=== PATIENT | female | born 1955 | race Caucasian/White ===

== ENCOUNTER → 2020-07-28 08:46 | Outpatient (BNVA) | payer OTHER, SELFPAY | PROVIDERS: PCP Internal Medicine Geriatric Medicine; Visit Provider Nurse Practitioner ==

== ENCOUNTER 2020-09-25 08:29 | Outpatient (REF) | payer OTHER, SELFPAY ==
--- NOTE | ~2020-09-25 | CT_ITS ---
EXAMINATION: CT ABDOMEN WITH CONTRAST CLINICAL INFORMATION: Epigastric pain and weight loss. COMPARISON: None TECHNIQUE: Contiguous axial thin section helical images of the abdomen were performed following the administration of oral contrast and 85 mL of Omnipaque 350 intravenous contrast. The data set was reformatted in the coronal and sagittal planes and reviewed on an independent workstation. This CT examination was performed using dose optimization techniques as appropriate, variously including the following: Automated exposure control Adjustment of mA and/or kV according to patient size (this includes techniques or standardized protocols for targeted exams where dose is matched to indication/reason for exam; i.e. extremities or head) Use of iterative reconstruction technique DLP: 220 mGy-cm FINDINGS: LUNG BASES: The lung bases are clear. The heart size is normal. LIVER, GALLBLADDER, AND BILIARY TREE: The liver is homogeneous in density, is of normal size and shape. No focal lesion or intrahepatic ductal dilatation is seen. The common bile duct is of normal caliber. The gallbladder is unremarkable without any radiopaque calculi. PANCREAS: Minimal heterogenous appearance of pancreatic head is visualized on axial image 27/3. The body and the tail of the pancreas are unremarkable. The peripancreatic fat borders are maintained normally. SPLEEN: The spleen is unremarkable. ADRENAL GLANDS AND KIDNEYS: Bilateral adrenal glands are symmetrical. Both kidneys nephrograms are of normal size, shape and position. There is a punctate cortical scar in the upper pole lateral cortex of the left kidney. There is a nonobstructive 4 mm radiopaque calculi mid pole and 2 mm radiopaque calculi in the lower pole calyx of the left kidney. There is a punctate 4 mm hypodense area in the interpolar region of the left kidney that likely is a simple cyst. BOWEL LOOPS: There is moderate scattered stool seen throughout the colon without any significant distention. The small bowel loops are of normal caliber and the appendix is not seen. The stomach is nondistended and appears unremarkable. LYMPH NODES: Normal. VASCULAR: Unremarkable. BONES: There is bilateral L4-L5, L5-S1 facet joint arthropathy. No lytic or sclerotic process is seen . CT/CT abdomen w con IMPRESSION: 4 mm nonobstructive radiopaque calculi mid pole and a 2 mm radiopaque calculi in the lower pole calyx of the left kidney. Mildly heterogenous appearing pancreatic head but no enlargement. No abnormal lymph nodes. Recommend correlation with serum amylase and lipase levels. If clinically indicated follow-up with MRI abdomen with and without contrast.
[2020-09-25 09:56] LABS: Blood Urea Nitrogen 11 mg/dL (9-16); Estimated Glomerular Filt Rate > 60
[2020-09-25] MEDS: iohexoL 350 MG/ML 100 ML INFUS..BTL IV (11:52)
== END 2020-09-25 08:30 | disposition home or self-care (01) ==
LOC: HO.CT 08:29
PROVIDERS: PCP Internal Medicine Geriatric Medicine; Visit Provider Internal Medicine Geriatric Medicine
DX: R10.13 Epigastric pain (principal); R63.4 Abnormal weight loss; R73.03 Prediabetes
CPT/HCPCS: 36415; 74160; 82565; 84520; Q9967

== ENCOUNTER 2021-01-30 12:56 | Outpatient (REF) | payer OTHER, SELFPAY | END 2021-01-30 12:57 | disposition home or self-care (01) | LOC: HO.LAB 12:56 | PROVIDERS: PCP Internal Medicine Geriatric Medicine; Referring Provider Internal Medicine Geriatric Medicine; Visit Provider Nurse Practitioner Family | DX: R10.13 Epigastric pain (principal); K21.9 Gastro-esophageal reflux disease without esophagitis; R43.8 Other disturbances of smell and taste | CPT/HCPCS: 99202 ==

== ENCOUNTER 2021-11-16 13:46 | Outpatient (REF) | payer OTHER, SELFPAY ==
--- NOTE | ~2021-11-16 | MM_ITS ---
EXAMINATION: MM DIAGNOSTIC DIGITAL BREAST TOMOSYNTHESIS, BILATERAL US DIAGNOSTIC ULTRASOUND BREAST, RIGHT CLINICAL INFORMATION: Right-sided breast pain upper outer quadrant for several weeks. Family history breast cancer, mother. The lifetime risk of breast cancer based on the Tyrer-Cuzick Model is 9%. COMPARISON: Mammography: 02/25/2017, outside mammography 09/25/2014 ([facility]) TECHNIQUE: Digital breast tomosynthesis is performed in both the craniocaudal and mediolateral oblique views along with computer-aided detection (CAD). Synthesized 2D images are generated from the tomosynthesis. Ultrasound right breast is targeted to the areas of clinical concern upper outer quadrant. Grayscale imaging and color Doppler are performed without and with harmonics. FINDINGS: The breasts are almost entirely fatty (ACR BI-RADS breast composition Category a). Background stromal and fibroglandular markings are stable. There is no interval mass or architectural abnormality or abnormal calcifications. No skin thickening or coarsening of the Andrez's ligaments. There are some dermal calcifications again seen bilateral inferior posterior medial breasts. The axilla are unremarkable. Ultrasound demonstrates no cystic or solid mass or architectural abnormality. No focal duct ectasia. No skin thickening or edema tracking in soft tissue planes. There are normal-appearing node seen posterior lower right axilla. Results are discussed with the patient at time of visit. MM/MM tomosynthesis diagnostic BI IMPRESSION: -No mammographic evidence of malignancy or inflammatory changes. -Unremarkable right breast ultrasound. ASSESSMENT: BI-RADS 1: Negative RECOMMENDATION: 1. Patient's right breast pain should be managed based on the clinical impression. 2. Otherwise, routine annual screening mammography. This patient's information was entered into a reminder system with a target due date for their next mammogram.
== END 2021-11-16 13:47 | disposition home or self-care (01) ==
LOC: HO.MAMMO 13:46
PROVIDERS: PCP Internal Medicine Geriatric Medicine; Visit Provider Internal Medicine Geriatric Medicine
DX: N64.4 Mastodynia (principal); Z80.3 Family history of malignant neoplasm of breast
CPT/HCPCS: 76642; 77062; 77066

== ENCOUNTER 2022-05-05 09:50 | Outpatient (REF) | payer OTHER, SELFPAY ==
[2022-05-05 10:23] LABS: MANUAL DIFF FLAG NO
[2022-05-05 10:44] LABS: Basophils Percent Auto 0.4 % (0-2); Eosinophils Absolute Auto 0.1 X10*3/uL (0.0-0.4); Eosinophils Percent Auto 0.7 % (0-4); Hemoglobin 11.3 g/dl (12.0-16.0); Imm Gran Abs Auto 0.05 X10*3/uL (0.00-0.03); Imm Gran Pct Auto 0.5 % (0.0-0.4); Lymphocytes Absolute Auto 2.6 X10*3/uL (1.2-4.9); Lymphocytes Percent Auto 23.6 % (20-40); Mean Corpuscular HGB Conc 32.3 g/dl (31.0-35.0); Mean Corpuscular Hemoglobin 28.9 pg (27.0-33.0); Mean Corpuscular Volume 89.5 fL (80.0-98.0); Mean Platelet Volume 8.5 fL (9.4-12.3); Monocytes Absolute Auto 0.5 X10*3/uL (0.1-1.2); Monocytes Percent Auto 4.9 % (2-11); Neutrophils Absolute Auto 7.6 x10*3/uL (2.0-8.3); Neutrophils Percent Auto 69.9 % (45-73); Platelet Count 372 X10*3/uL (160-400); Red Blood Count 3.91 X10*6/uL (4.20-5.50); Red Cell Distribution Width 14.8 % (11.0-16.0); White Blood Count 10.9 X10*3/uL (4.8-10.8)
[2022-05-05 11:15] LABS: Estimated Average Glucose 114 mg/dL; Hemoglobin A1c % 5.6 %
[2022-05-05 11:37] LABS: Erythrocyte Sedimentation Rate 88 MM/HR (0-20)
[2022-05-05 11:43] LABS: Appearance Urine Clear; Color Urine Dark Yellow; Glucose Urine UA Negative (Negative); Leukocyte Esterase Urine Trace (Negative); Nitrite Urine Negative (Negative); Specific Gravity - Urine 1.025 (1.005-1.025); UMIC TRIGGER UA YES; Urine Blood Trace (Negative); Urine Ketones 15 mg/dL (Negative); Urine Protein 30 (1+) mg/dL (Neg-Trace)
[2022-05-05 11:50] LABS: Bacteria Urine None Seen (None Seen); Hyaline Casts Urine 0-2 /LPF (0-2); WBC Urine 0-5 /HPF (0-5)
[2022-05-05 12:29] LABS: Protein/Creatinine Ratio, Ur 0.19 (<0.2); Total Protein Urine Random 42 mg/dL (<12)
[2022-05-05 15:12] LABS: Folate 15.5 ng/mL (> or = 4.0); Vitamin B12 569 pg/mL (200-900)
[2022-05-05 15:19] LABS: Alanine Aminotransferase 9 U/L (0-31); Albumin Level 3.3 g/dL (3.5-5.0); Alkaline Phosphatase 87 U/L (39-117); Anion Gap 14 (12-20); Aspartate Amino Transferase 11 U/L (5-31); Bilirubin Total 0.4 mg/dL (0.0-1.0); Blood Urea Nitrogen 13 mg/dL (9-16); Calcium 9.5 mg/dL (8.4-10.2); Carbon Dioxide 26 mmol/L (22-29); Chloride 99 mmol/L (96-108); Estimated Glomerular Filt Rate > 60; Ferritin 394 ng/mL (10-250); Glucose Random 98 mg/dL (60-115); Iron 17 mcg/dL (30-160); Lactate Dehydrogenase 133 U/L (122-220); Percent Iron Saturation 10 % (15-50); Potassium 3.1 mmol/L (3.3-5.1); Sodium 136 mmol/L (135-145); Total Iron Binding Capacity 170 mcg/dL (228-428); Total Protein 7.1 g/dL (6.5-8.0); Unsaturated Iron Binding 153 ug/dL
[2022-05-05 15:40] LABS: Rheumatoid Factor 254.1 IU/mL (<15.0)
[2022-05-06 09:10] LABS: HBS Num1 0.27 mIU/mL (0-7.99); Hepatitis B Core Antibody Nonreactive (Nonreactive); ~HepC Num1 0.14 S/CO (0.00-0.79); ~Hepatitis B Surface Antibody NONREACTIVE (Nonreactive); ~Hepatitis C Antibody Nonreactive (Nonreactive)
[2022-05-06 09:51] LABS: HBsAGNum1 0.26 S/CO (0.00-0.99); Hepatitis B Surface Antigen Negative (Negative)
[2022-05-07 07:43] LABS: Hepatitis A Antibody IgM 0.35 Index (0-0.79); ~Hepatitis A Antibody IgM Nonreactive (Nonreactive)
[2022-05-07 13:28] LABS: Cardiolipin IgG Ab <2.0 GPL-U/mL; Cardiolipin IgM Ab <2.0 MPL-U/mL
[2022-05-07 14:58] LABS: Complement C3 173 mg/dL (83-193)
[2022-05-08 03:29] LABS: TS Negative Control Passed; TS Panel A 0; TS Panel B 0; TS Positive Control Passed; TSpotTB Negative (Negative)
[2022-05-09 11:33] LABS: Anti Nuclear Antibody Pattern Nuclear, Homogeneous; Anti Nuclear Antibody Screen POSITIVE (NEGATIVE)
[2022-05-09 12:33] LABS: Cyclic Citrullinated Peptide <16 UNITS
[2022-05-10 15:53] LABS: Transferrin 157 mg/dL (188-341)
[2022-05-10 18:33] LABS: Prot Elec - Alpha1 0.6 g/dL (0.2-0.3); Prot Elec - Alpha2 1.2 g/dL (0.5-0.9); Prot Elec - Beta 1 0.6 g/dL (0.4-0.6); Prot Elec - Beta 2 0.6 g/dL (0.2-0.5); Prot Elec - Gamma 1.5 g/dL (0.8-1.7); Prot Elec - Total Protein 7.4 g/dL (6.1-8.1)
[2022-05-11 15:02] LABS: IgA 649 mg/dL (70-320); IgG 1661 mg/dL (600-1540); IgM 87 mg/dL (50-300)
[2022-05-12 04:44] LABS: Aldolase 4.3 U/L (<=8.1); Angiotensin Converting Enzyme 30 U/L (9-67)
[2022-05-12 05:53] LABS: Beta-2 Glycoprotein IgA <2.0 U/mL (<20.0); Beta-2 Glycoprotein IgG <2.0 U/mL (<20.0); Beta-2 Glycoprotein IgM <2.0 U/mL (<20.0)
[2022-05-12 09:54] LABS: Anti DNA DS Antibody 1 IU/mL; Antibody to SS-A Antigen <1.0 NEG AI (<1.0 NEG); Antibody to SS-B Antigen <1.0 NEG AI (<1.0 NEG); Myeloperoxidase Antibody 74.9 AI; Proteinase 3 PR3 Antibodies <1.0 AI; SM/Ribonucleoprotein Ab <1.0 NEG AI (<1.0 NEG); Smith Protein <1.0 NEG AI (<1.0 NEG)
[2022-05-12 17:53] LABS: Hexagonal Phase Neutralization Weak Positive (Negative)
[2022-05-12 18:27] LABS: PTT (LAC) Screen 43 sec (<=40); Thrombin Clotting Time 17 sec (13-19)
[2022-05-15 16:38] LABS: TPMT Activity 14
[2022-05-18 11:31] LABS: Cryoglobulin, Qual NONE DETECTED ((NDT))
[2022-05-19 17:38] LABS: Cytosolic 5'nuc 1A Ab IgG 9 Units; Ej Ab <11 SI (<11); HMGCR Ab IgG <2 CU (<20); Jo-1 Ab <11 SI (<11); MDA5 Ab <11 SI (<11); Mi-2 alpha Ab <11 SI (<11); Mi-2 beta Ab <11 SI (<11); NXP-2 (MJ) Ab <11 SI (<11); Oj Ab <11 SI (<11); Pl-12 Ab <11 SI (<11); Pl-7 Ab <11 SI (<11); SRP Ab <11 SI (<11); TIF1 gamma Ab <11 SI (<11)
== END 2022-05-05 09:51 | disposition home or self-care (01) ==
LOC: HO.10HDL 09:50
PROVIDERS: Visit Provider Student in an Organized Health Care Education/Training Program
DX: Z11.1 Encounter for screening for respiratory tuberculosis (principal); I77.82 Antineutrophilic cytoplasmic antibody [ANCA] vasculitis; E11.9 Type 2 diabetes mellitus without complications; D64.9 Anemia, unspecified; G72.9 Myopathy, unspecified; R10.11 Right upper quadrant pain; Z79.899 Other long term (current) drug therapy
CPT/HCPCS: 36415; 80053; 81001; 82085; 82164; 82550; 82595; 82607; 82657; 82728; 82746; 82784; 83036; 83516; 83520; 83540; 83615; 84156; 84165; 84182; 84466; 85025; 85597; 85613; 85652; 85730; 86021; 86038; 86039; 86140; 86146; 86147; 86160; 86200; 86225; 86235; 86334; 86431; 86481; 86704; 86706; 86709; 86803; 87340; 99202

== ENCOUNTER 2022-05-06 15:14 | Emergency (ER) | payer OTHER, SELFPAY ==
--- NOTE | ~2022-05-06 | CT_ITS ---
EXAMINATION: CT ABDOMEN AND PELVIS WITH CONTRAST CLINICAL INFORMATION: Abdominal pain with history of vasculitis COMPARISON: 09/25/2020 TECHNIQUE: Multidetector volumetric images were obtained from the superior aspect of the liver through the pubic symphysis following administration 85 mL of Omnipaque 350 intravenous contrast. Sagittal and coronal reformatted images were obtained on the technologist's workstation. Oral contrast: No This CT examination was performed using dose optimization techniques as appropriate, variously including the following: *Automated exposure control *Adjustment of mA and/or kV according to patient size (this includes techniques or standardized protocols for targeted exams where dose is matched to indication/reason for exam; i.e. extremities or head) *Use of iterative reconstruction technique DLP: 447 mGy-cm FINDINGS: LUNG BASES: The visualized lung bases are unremarkable. Small bilateral fat-containing Bochdalek hernias, left greater than right. LIVER, GALLBLADDER, AND BILIARY TREE: The liver is normal in size, shape, and attenuation. No focal hepatic lesion or biliary ductal dilatation is present. The gallbladder is unremarkable with no evidence of radiopaque gallstones, gallbladder wall thickening, or obvious pericholecystic inflammatory changes. PANCREAS: The pancreatic parenchyma appears atrophic with ill-defined, hypoattenuating margins and subtle surrounding regions of fat stranding at the pancreatic head, raising the possibility of mild pancreatitis. No appreciable ductal dilatation on these images. No pancreatic calcifications or focal lesions are identified. SPLEEN: Unremarkable. ADRENAL GLANDS: Unremarkable. KIDNEYS AND URETERS: There is a 5 mm calculus at the interpolar region of the left kidney with attenuation value of 1315 Hounsfield units. This is situated 9 cm deep to the skin surface of the left posterior mid axillary line. A 3 mm calculus is present within a calyx at the left lower renal pole. A 2 mm calculus is present within the left ureter at the ureteropelvic junction. No significant hydronephrosis or hydroureter. No additional ureteral calculi are identified. Kidneys are normal in size. Small subcentimeter foci of cortical hypoattenuation kidneys are too small to characterize, though statistically favored to correspond to simple cysts. No recommended imaging follow-up. BLADDER: Unremarkable. GASTROINTESTINAL TRACT: Moderate to large volume stool in the colon, most notably at the rectum. Stomach, small bowel, and colon are normal in caliber. No bowel wall thickening. Mild descending and sigmoid diverticulosis. No acute diverticulitis. Appendix is not seen, though no findings of acute appendicitis are identified. No intraperitoneal free fluid or free air. ABDOMINAL WALL: No significant hernia is appreciated. LYMPH NODES: Normal. VASCULAR: Abdominal aorta is normal in caliber. No evidence of thrombosis or critical stenoses. Portal venous system is patent. PELVIC VISCERA: The uterus and adnexa are unremarkable. OSSEOUS STRUCTURES: Marked facet arthropathy in the lower lumbar spine. Minimal degenerative disc disease. No acute fracture or malalignment. Mild osteoarthritis in the hips and SI joints. Bones are osteopenic. CT/CT abdomen pelvis w IV con IMPRESSION: 1. A 2 mm calculus at the left ureteropelvic junction does not result in significant obstructive uropathy. Additional nonobstructing calculi are present in the left kidney. 2. Ill-defined hypoattenuating margins in the pancreatic head with subtle surrounding fat stranding, raising the possibility of mild pancreatitis. Consider correlation with serum amylase and lipase. 3. Moderate to large volume of stool throughout the colon. 4. Mild colonic diverticulosis without evidence of acute diverticulitis. Fleischner guidelines were followed.
--- NOTE | ~2022-05-06 | XR_ITS ---
EXAMINATION: XR CHEST CLINICAL INFORMATION: Cough with hemoptysis COMPARISON: Chest x-ray 03/05/2019 TECHNIQUE: 2 views of the chest were obtained. FINDINGS: Unchanged mild linear scarring in the lingula. The lungs are otherwise clear. No airspace consolidation, pleural effusion, or pneumothorax. Cardiomediastinal silhouette is within normal limits. No evidence of pulmonary edema. No acute osseous injury. Partial anterior longitudinal ligament ossification in the thoracic spine noted. XR/XR chest 2V IMPRESSION: No acute pulmonary process.
[2022-05-06 16:18] VITALS: BP 105/52; PULSE 74; RESP 18; TEMP 36.6; O2SAT 98; BMI 25.6
--- NOTE | 2022-05-06 16:21 | ED_ITS ---
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 Last Done: 05/06/22 22:57 <KELI Herrera - Last Filed: 05/06/22 16:28> Discharge Date/Time: 05/06/22 22:59 <KELI Herrera - Last Filed: 05/06/22 16:28>
--- NOTE | 2022-05-06 16:23 | ECG_ITS ---
Test Reason : WEAKNESS Blood Pressure : / mmHG Vent. Rate : 080 BPM Atrial Rate : 080 BPM P-R Int : 172 ms QRS Dur : 082 ms QT Int : 390 ms P-R-T Axes : 096 008 068 degrees QTc Int : 449 ms Normal sinus rhythm Normal ECG When compared with ECG of 26-MAY-2018 09:27, Premature ventricular complexes are no longer Present Referred By: Kristin Estrella Electronically Signed By:MICHELLE MUÑOZ
[2022-05-06 17:10] LABS: Appearance Urine Clear; Color Urine Dark Yellow; Glucose Urine UA Negative (Negative); Specific Gravity - Urine 1.025 (1.005-1.025); Urine Blood Negative (Negative)
[2022-05-06 17:11] LABS: Leukocyte Esterase Urine Trace (Negative); Nitrite Urine Negative (Negative); UMIC TRIGGER UACC YES; Urine Ketones Trace mg/dL (Negative); Urine Protein Trace mg/dL (Neg-Trace)
[2022-05-06 17:17] LABS: INTERNATIONAL NORM RATIO 1.1 (0.9-1.1); Prothrombin Time 13.2 SEC (10.0-13.1)
[2022-05-06 17:25] LABS: Bacteria Urine None Seen (None Seen); WBC Urine 0-5 /HPF (0-5)
[2022-05-06 17:26] LABS: Alanine Aminotransferase 8 U/L (0-31); Albumin Level 2.9 g/dL (3.5-5.0); Alkaline Phosphatase 87 U/L (39-117); Anion Gap 9 (12-20); Aspartate Amino Transferase 11 U/L (5-31); Bilirubin Total 0.3 mg/dL (0.0-1.0); Blood Urea Nitrogen 18 mg/dL (9-16); Calcium 8.9 mg/dL (8.4-10.2); Carbon Dioxide 29 mmol/L (22-29); Chloride 101 mmol/L (96-108); Creatinine Clr Calc Pharmacy 59.8; Estimated Glomerular Filt Rate > 60; Glucose Random 113 mg/dL (60-115); MANUAL DIFF FLAG NO; Magnesium 1.9 mg/dL (1.6-2.6); Potassium 3.3 mmol/L (3.3-5.1); Sodium 136 mmol/L (135-145); Total Protein 6.3 g/dL (6.5-8.0)
[2022-05-06 17:29] LABS: Basophils Percent Auto 0.3 % (0-2); Eosinophils Absolute Auto 0.2 X10*3/uL (0.0-0.4); Eosinophils Percent Auto 1.3 % (0-4); Hematocrit 32.7 % (37.0-47.0); Hemoglobin 10.2 g/dl (12.0-16.0); Imm Gran Abs Auto 0.04 X10*3/uL (0.00-0.03); Imm Gran Pct Auto 0.3 % (0.0-0.4); Lymphocytes Absolute Auto 3.7 X10*3/uL (1.2-4.9); Lymphocytes Percent Auto 31.2 % (20-40); Mean Corpuscular HGB Conc 31.2 g/dl (31.0-35.0); Mean Corpuscular Hemoglobin 27.8 pg (27.0-33.0); Mean Corpuscular Volume 89.1 fL (80.0-98.0); Mean Platelet Volume 8.6 fL (9.4-12.3); Monocytes Absolute Auto 0.6 X10*3/uL (0.1-1.2); Monocytes Percent Auto 4.9 % (2-11); Neutrophils Absolute Auto 7.3 x10*3/uL (2.0-8.3); Platelet Count 357 X10*3/uL (160-400); Red Blood Count 3.67 X10*6/uL (4.20-5.50); White Blood Count 11.8 X10*3/uL (4.8-10.8)
[2022-05-06 17:31] LABS: COVID-19 Test Negative (Negative); IDNOW Serial# 16C4AD1C; IDNOW Serial# BCCEAD1C; Influenza A Negative (Negative); Influenza B2 Negative (Negative)
[2022-05-06 17:47] LABS: TSH reflex Free T4 1.33 uIU/mL (0.32-4.0)
[2022-05-06 18:07] LABS: Erythrocyte Sedimentation Rate 90 MM/HR (0-20)
[2022-05-06] MEDS: 0.9 % Sodium Chloride 1,000 ML 999 ML IV (18:51)
[2022-05-06] MEDS: methylPREDNISolone Sod Succ 125 MG/2 ML VIAL IVPUSH (19:06)
[2022-05-06 19:10] VITALS: BP 113/53; PULSE 86; RESP 16; O2SAT 98
[2022-05-06] MEDS: iohexoL 350 MG/ML 100 ML INFUS..BTL IV (19:44)
[2022-05-06] MEDS: Acetaminophen 325 MG TABLET 650 MG PO (19:45)
[2022-05-06 21:46] LABS: Lipase 8 U/L (8-78)
[2022-05-06 22:00] VITALS: BP 106/48; PULSE 88; RESP 15; TEMP 36.8; O2SAT 92
[2022-05-06] MEDS: Famotidine/PF 20 MG/2 ML VIAL IVPUSH (22:47)
== END 2022-05-06 22:59 | disposition home or self-care (01) ==
PROVIDERS: Physician Assistant Medical; Emergency Provider Internal Medicine; PCP Internal Medicine Geriatric Medicine
DX: I77.82 Antineutrophilic cytoplasmic antibody [ANCA] vasculitis (principal); R53.1 Weakness; R10.13 Epigastric pain; R79.89 Other specified abnormal findings of blood chemistry; F41.1 Generalized anxiety disorder; F43.0 Acute stress reaction; Z20.822 Contact with and (suspected) exposure to COVID-19; Z79.899 Other long term (current) drug therapy
CPT/HCPCS: 36415; 71046; 74177; 80053; 81001; 83690; 83735; 84443; 85025; 85610; 85652; 86140; 87502; 87635; 93005; 96361; 96374; 96375; 99284; 99285; J2930; Q9967

== ENCOUNTER → 2022-05-14 11:25 | Outpatient (BNVA) | payer OTHER, SELFPAY | PROVIDERS: PCP Internal Medicine Geriatric Medicine; Visit Provider Nurse Practitioner Family | DX: K59.04 Chronic idiopathic constipation (principal); R10.11 Right upper quadrant pain; R10.13 Epigastric pain | CPT/HCPCS: 99212 ==

== ENCOUNTER → 2022-06-09 08:26 | Outpatient (BNVA) | payer OTHER, SELFPAY | PROVIDERS: PCP Internal Medicine Geriatric Medicine; Visit Provider Student in an Organized Health Care Education/Training Program | DX: I77.82 Antineutrophilic cytoplasmic antibody [ANCA] vasculitis (principal); R60.0 Localized edema | CPT/HCPCS: 99212 ==

== ENCOUNTER 2022-06-09 10:16 | Outpatient (REF) | payer OTHER, SELFPAY ==
[2022-06-09 10:52] LABS: MANUAL DIFF FLAG NO
[2022-06-09 11:01] LABS: Basophils Percent Auto 0.2 % (0-2); Eosinophils Absolute Auto 0.2 X10*3/uL (0.0-0.4); Eosinophils Percent Auto 1.8 % (0-4); Hematocrit 31.8 % (37.0-47.0); Hemoglobin 10.1 g/dl (12.0-16.0); Imm Gran Abs Auto 0.03 X10*3/uL (0.00-0.03); Imm Gran Pct Auto 0.3 % (0.0-0.4); Lymphocytes Absolute Auto 3.4 X10*3/uL (1.2-4.9); Lymphocytes Percent Auto 35.5 % (20-40); Mean Corpuscular HGB Conc 31.8 g/dl (31.0-35.0); Mean Corpuscular Hemoglobin 28.9 pg (27.0-33.0); Mean Corpuscular Volume 90.9 fL (80.0-98.0); Mean Platelet Volume 8.5 fL (9.4-12.3); Monocytes Absolute Auto 0.6 X10*3/uL (0.1-1.2); Monocytes Percent Auto 6.4 % (2-11); Neutrophils Absolute Auto 5.4 x10*3/uL (2.0-8.3); Neutrophils Percent Auto 55.8 % (45-73); Platelet Count 428 X10*3/uL (160-400); Red Cell Distribution Width 14.7 % (11.0-16.0); White Blood Count 9.6 X10*3/uL (4.8-10.8)
[2022-06-09 11:44] LABS: Alanine Aminotransferase 6 U/L (0-31); Albumin Level 3.2 g/dL (3.5-5.0); Alkaline Phosphatase 80 U/L (39-117); Anion Gap 8 (12-20); Aspartate Amino Transferase 10 U/L (5-31); Bilirubin Total 0.3 mg/dL (0.0-1.0); Blood Urea Nitrogen 15 mg/dL (9-16); C Reactive Protein 12.11 mg/dL (< or = 0.50); Calcium 9.3 mg/dL (8.4-10.2); Carbon Dioxide 31 mmol/L (22-29); Chloride 99 mmol/L (96-108); Estimated Glomerular Filt Rate > 60; Glucose Random 84 mg/dL (60-115); Potassium 3.3 mmol/L (3.3-5.1); Sodium 135 mmol/L (135-145); Total Protein 6.8 g/dL (6.5-8.0)
[2022-06-09 11:58] LABS: Erythrocyte Sedimentation Rate 97 MM/HR (0-20)
[2022-06-09 14:02] LABS: Appearance Urine Clear; Color Urine Dark Yellow; Glucose Urine UA Negative (Negative); Leukocyte Esterase Urine Negative (Negative); Nitrite Urine Negative (Negative); PH 5.5 (5.0-9.0); Urine Blood Negative (Negative); Urine Ketones Negative (Negative); Urine Protein Negative (Neg-Trace)
[2022-06-09 14:32] LABS: Creatinine Urine 138.98 mg/dL; Protein/Creatinine Ratio, Ur 0.09 (<0.2); Total Protein Urine Random 13 mg/dL (<12)
[2022-06-09 14:33] LABS: Bacteria Urine None Seen (None Seen); RBC Urine 0-2 /HPF (0-2); WBC Urine 0-5 /HPF (0-5)
== END 2022-06-09 10:17 | disposition home or self-care (01) ==
LOC: HO.10HDL 10:16
PROVIDERS: Visit Provider Student in an Organized Health Care Education/Training Program
DX: I77.82 Antineutrophilic cytoplasmic antibody [ANCA] vasculitis (principal); R60.0 Localized edema
CPT/HCPCS: 36415; 80053; 81001; 82550; 84156; 85025; 85652; 86140

== ENCOUNTER 2022-06-11 09:40 | Outpatient (REF) | payer OTHER, SELFPAY ==
--- NOTE | ~2022-06-11 | CT_ITS ---
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 TECHNIQUE: Noncontrast multidetector CT imaging examination of the chest. 5 mm axial images as well as 1.5 mm high-resolution images are obtained. A few high-resolution axial images were also obtained during expiration. The axial images and multiplanar reformatted images are reviewed. DLP: 143 mGy-cm FINDINGS: LUNGS AND PLEURA: Trachea and central airways are widely patent and normal in caliber. There are nonspecific micronodular and reticulonodular opacities in upper lobes and right middle lobe. Also, there is a 0.2 cm nodule with surrounding groundglass attenuation in the lateral left lower lobe (image 111, series 10). Several small subpleural cystic lucencies or foci of traction bronchiolectasis are present in the periphery of the right upper lobe and inferolateral right middle lobe. There appears to be a small 0.3 cm cavitary nodule in the right upper lobe (image 86, series 10) as well as a 0.5 cm thick-walled cavitary nodule in the lateral aspect of the right upper lobe (image 81, series 10). Subsegmental atelectasis within the lingula. No evidence of groundglass infiltrates, consolidation, masslike lesions or pleural effusion. CARDIOVASCULAR: The heart size is normal. No pericardial effusion. Pulmonary arteries are normal in size. Mild atherosclerotic calcification of the aortic arch. No aortic aneurysm. CORONARY ARTERY CALCIFICATION: None detected. MEDIASTINUM AND LOWER NECK: No mediastinal mass. The esophagus is unremarkable. 0.8 cm rim calcified nodule in the left thyroid lobe. No evidence of a large or clinically significant nodule. No thyroid imaging follow-up is recommended. LYMPHATICS: No axillary or internal mammary lymphadenopathy. No pathologic sized mediastinal or hilar lymph nodes. UPPER ABDOMEN: Unremarkable. SKELETAL AND CHEST WALL: Thoracic vertebra have normal height and alignment. No suspicious bone lesions. Diffuse idiopathic skeletal hyperostosis as manifest by presence of flowing anterior ligament ossification of the lower thoracic spine. Mild multilevel discovertebral degenerative change of the thoracic spine. CT/CT chest wo con - High Res IMPRESSION: There are nonspecific micronodular and reticulonodular opacities in the lungs. Also, two small cavitary-appearing foci are present in the right upper lobe. These findings could be sequela of a previous infectious disease process affecting small airways. The granulomatous inflammatory changes of ANCA-associated vasculitis could mimic the appearance of postinfectious change. However, there are no inflammatory changes involving the trachea or central bronchi, and there are no consolidative or groundglass opacities to suggest any active pneumonitis.
== END 2022-06-11 09:41 | disposition home or self-care (01) ==
LOC: HO.CT 09:40
PROVIDERS: PCP Internal Medicine Geriatric Medicine; Visit Provider Student in an Organized Health Care Education/Training Program
DX: I77.82 Antineutrophilic cytoplasmic antibody [ANCA] vasculitis (principal)
CPT/HCPCS: 71250

== ENCOUNTER → 2022-06-21 09:07 | Outpatient (BNVA) | payer OTHER, SELFPAY | PROVIDERS: PCP Internal Medicine Geriatric Medicine; Visit Provider Nurse Practitioner Family | DX: K59.04 Chronic idiopathic constipation (principal); K21.9 Gastro-esophageal reflux disease without esophagitis; R10.11 Right upper quadrant pain | CPT/HCPCS: 99212 ==

== ENCOUNTER → 2022-07-09 10:03 | Outpatient (BNVA) | payer OTHER, SELFPAY | PROVIDERS: PCP Internal Medicine Geriatric Medicine; Visit Provider Psychiatry & Neurology Neurology | DX: M79.604 Pain in right leg (principal); M79.605 Pain in left leg; R20.0 Anesthesia of skin; R20.2 Paresthesia of skin | CPT/HCPCS: 99202 ==

== ENCOUNTER 2022-07-15 10:13 | Outpatient (REF) | payer OTHER, SELFPAY ==
--- NOTE | ~2022-07-15 | XR_ITS ---
EXAMINATION: XR BILATERAL FEET AND BILATERAL ANKLES CLINICAL INFORMATION: Pain. COMPARISON: None. TECHNIQUE: AP, lateral, and oblique views of both feet and ankles. FINDINGS: LEFT FOOT: There is no evidence of acute fracture or dislocation of the left foot. No destructive bony lesions are appreciated. Joint spaces are maintained. There is some soft tissue swelling seen over the dorsum of the foot and ankle. No radiopaque foreign body. LEFT ANKLE: Two views of the left ankle do not demonstrate any evidence of acute fracture or dislocation. Ankle mortise appears intact. There is some soft tissue edema seen about the lateral malleolus. No destructive bony lesions appreciated. RIGHT FOOT: There is no evidence of acute fracture or dislocation of the right foot. No radiopaque foreign body is seen. Joint spaces are maintained. No erosive changes seen. RIGHT ANKLE: Views of the right ankle do not demonstrate any evidence of acute fracture or dislocation. Ankle mortise appears intact. There is some soft tissue edema seen about the lateral aspect of the lower extremity. XR/XR foot LT min 3V IMPRESSION: No significant bony abnormality of the bilateral feet or ankles.
--- NOTE | ~2022-07-15 | XR_ITS ---
EXAMINATION: XR BILATERAL FEET AND BILATERAL ANKLES CLINICAL INFORMATION: Pain. COMPARISON: None. TECHNIQUE: AP, lateral, and oblique views of both feet and ankles. FINDINGS: LEFT FOOT: There is no evidence of acute fracture or dislocation of the left foot. No destructive bony lesions are appreciated. Joint spaces are maintained. There is some soft tissue swelling seen over the dorsum of the foot and ankle. No radiopaque foreign body. LEFT ANKLE: Two views of the left ankle do not demonstrate any evidence of acute fracture or dislocation. Ankle mortise appears intact. There is some soft tissue edema seen about the lateral malleolus. No destructive bony lesions appreciated. RIGHT FOOT: There is no evidence of acute fracture or dislocation of the right foot. No radiopaque foreign body is seen. Joint spaces are maintained. No erosive changes seen. RIGHT ANKLE: Views of the right ankle do not demonstrate any evidence of acute fracture or dislocation. Ankle mortise appears intact. There is some soft tissue edema seen about the lateral aspect of the lower extremity. XR/XR ankle RT min 3V IMPRESSION: No significant bony abnormality of the bilateral feet or ankles.
--- NOTE | ~2022-07-15 | XR_ITS ---
EXAMINATION: XR BILATERAL FEET AND BILATERAL ANKLES CLINICAL INFORMATION: Pain. COMPARISON: None. TECHNIQUE: AP, lateral, and oblique views of both feet and ankles. FINDINGS: LEFT FOOT: There is no evidence of acute fracture or dislocation of the left foot. No destructive bony lesions are appreciated. Joint spaces are maintained. There is some soft tissue swelling seen over the dorsum of the foot and ankle. No radiopaque foreign body. LEFT ANKLE: Two views of the left ankle do not demonstrate any evidence of acute fracture or dislocation. Ankle mortise appears intact. There is some soft tissue edema seen about the lateral malleolus. No destructive bony lesions appreciated. RIGHT FOOT: There is no evidence of acute fracture or dislocation of the right foot. No radiopaque foreign body is seen. Joint spaces are maintained. No erosive changes seen. RIGHT ANKLE: Views of the right ankle do not demonstrate any evidence of acute fracture or dislocation. Ankle mortise appears intact. There is some soft tissue edema seen about the lateral aspect of the lower extremity. XR/XR foot RT min 3V IMPRESSION: No significant bony abnormality of the bilateral feet or ankles.
--- NOTE | ~2022-07-15 | XR_ITS ---
EXAMINATION: XR BILATERAL FEET AND BILATERAL ANKLES CLINICAL INFORMATION: Pain. COMPARISON: None. TECHNIQUE: AP, lateral, and oblique views of both feet and ankles. FINDINGS: LEFT FOOT: There is no evidence of acute fracture or dislocation of the left foot. No destructive bony lesions are appreciated. Joint spaces are maintained. There is some soft tissue swelling seen over the dorsum of the foot and ankle. No radiopaque foreign body. LEFT ANKLE: Two views of the left ankle do not demonstrate any evidence of acute fracture or dislocation. Ankle mortise appears intact. There is some soft tissue edema seen about the lateral malleolus. No destructive bony lesions appreciated. RIGHT FOOT: There is no evidence of acute fracture or dislocation of the right foot. No radiopaque foreign body is seen. Joint spaces are maintained. No erosive changes seen. RIGHT ANKLE: Views of the right ankle do not demonstrate any evidence of acute fracture or dislocation. Ankle mortise appears intact. There is some soft tissue edema seen about the lateral aspect of the lower extremity. XR/XR ankle LT min 3V IMPRESSION: No significant bony abnormality of the bilateral feet or ankles.
== END 2022-07-15 10:14 | disposition home or self-care (01) ==
LOC: HO.XRAY 10:13
PROVIDERS: PCP Internal Medicine Geriatric Medicine; Visit Provider Student in an Organized Health Care Education/Training Program
DX: M79.604 Pain in right leg (principal); M79.605 Pain in left leg
CPT/HCPCS: 73610; 73630

== ENCOUNTER → 2022-07-16 12:13 | Outpatient (BNVA) | payer OTHER, SELFPAY | PROVIDERS: PCP Internal Medicine Geriatric Medicine; Visit Provider Student in an Organized Health Care Education/Training Program | DX: I77.82 Antineutrophilic cytoplasmic antibody [ANCA] vasculitis (principal); R60.0 Localized edema | CPT/HCPCS: 99212 ==

== ENCOUNTER 2022-07-19 11:40 | Outpatient (REF) | payer OTHER, SELFPAY ==
--- NOTE | ~2022-07-19 | US_ITS ---
EXAMINATION: US VENOUS ULTRASOUND WITH DOPPLER LOWER EXTREMITY, BILATERAL CLINICAL INFORMATION: Localized edema COMPARISON: None TECHNIQUE: Ultrasound of the deep veins is performed from the hip to the calf with compression sonography and color and pulse Doppler assessment. Spectral analysis with color-flow imaging is performed. FINDINGS: RIGHT: There is normal venous compression and respiratory variation and augmented flow. The visualized common femoral vein, superficial femoral vein, profunda femoral vein, popliteal vein, and the trifurcation region shows no evidence of deep venous thrombosis. There is no significant popliteal fossa cyst. LEFT: There is normal venous compression and respiratory variation and augmented flow. The visualized common femoral vein, superficial femoral vein, profunda femoral vein, popliteal vein, and the trifurcation region shows no evidence of deep venous thrombosis. Within the left popliteal fossa there is a 2.3 x 2.2 x 0.5 cm cyst If the patient's symptoms persist, followup ultrasound in 5 days 7 days might be of value to exclude proximal propagation from a non-visualized calf vein. US/US venous duplex LE BI IMPRESSION: No DVT demonstrated in the bilateral lower extremities. There is a small left popliteal fossa cyst.
== END 2022-07-19 11:41 | disposition home or self-care (01) ==
LOC: HO.US 11:40
PROVIDERS: PCP Internal Medicine Geriatric Medicine; Visit Provider Student in an Organized Health Care Education/Training Program
DX: M79.604 Pain in right leg (principal); M79.605 Pain in left leg
CPT/HCPCS: 93970

== ENCOUNTER 2022-07-26 08:52 | Outpatient (REF) | payer OTHER, SELFPAY ==
[2022-07-26 11:34] LABS: Lipase 11 U/L (8-78)
[2022-07-26 12:11] LABS: Vitamin B12 311 pg/mL (200-900)
[2022-08-01 15:23] LABS: Vitamin D 25-OH, D2 <4 ng/mL; Vitamin D 25-OH, D3 33 ng/mL; Vitamin D 25-OH, Total 33 ng/mL (30-100)
== END 2022-07-26 08:53 | disposition home or self-care (01) ==
LOC: HO.LAB 08:52
PROVIDERS: PCP Internal Medicine Geriatric Medicine; Visit Provider Nurse Practitioner Family
DX: R10.11 Right upper quadrant pain (principal); R14.0 Abdominal distension (gaseous); R10.13 Epigastric pain; R19.7 Diarrhea, unspecified; K59.04 Chronic idiopathic constipation; K21.9 Gastro-esophageal reflux disease without esophagitis; K58.2 Mixed irritable bowel syndrome; K59.01 Slow transit constipation; E55.9 Vitamin D deficiency, unspecified
CPT/HCPCS: 36415; 82306; 82607; 82746; 83690; 99212

== ENCOUNTER 2022-08-19 08:00 | Outpatient (REF) | payer OTHER, SELFPAY ==
--- NOTE | 2022-08-19 08:04 | EMG_ITS ---
Bilateral tibial and peroneal motor studies were performed. Bilateral superficial peroneal and sural sensory studies were performed tibial H reflexes were obtained and paraspinal muscles were tested with a needle. 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 MD WILLOW Schwarz/MARY / [id number]
== END 2022-08-19 08:01 | disposition home or self-care (01) ==
LOC: HO.NEURO 08:00
PROVIDERS: PCP Internal Medicine Geriatric Medicine; Visit Provider Student in an Organized Health Care Education/Training Program
DX: G62.9 Polyneuropathy, unspecified (principal); R60.0 Localized edema; I77.82 Antineutrophilic cytoplasmic antibody [ANCA] vasculitis; R20.0 Anesthesia of skin; R20.2 Paresthesia of skin
CPT/HCPCS: 95886; 95913; 99212

== ENCOUNTER 2022-08-19 08:15 | Outpatient (REF) | payer OTHER, SELFPAY ==
[2022-08-19 11:52] LABS: Adenovirus F 40/41 Not Detected (Not Detect.); Astrovirus Not Detected (Not Detect.); Campylobacter Not Detected (Not Detect.); Cryptosporidium Not Detected (Not Detect.); Cyclospora cayetanensis Not Detected (Not Detect.); E. coli EAEC Not Detected (Not Detect.); E. coli EPEC Not Detected (Not Detect.); E. coli ETEC Not Detected (Not Detect.); E. coli STEC Not Detected (Not Detect.); Entamoeba histolytica Not Detected (Not Detect.); Giardia lamblia Not Detected (Not Detect.); Norovirus GI/GII Not Detected (Not Detect.); Plesiomonas shigelloides Not Detected (Not Detect.); Rotavirus A Not Detected (Not Detect.); Salmonella Not Detected (Not Detect.); Sapovirus Not Detected (Not Detect.); Shigella sp./EIEC Not Detected (Not Detect.); Vibrio Not Detected (Not Detect.); Vibrio Cholerae Not Detected (Not Detect.); Yersinia enterocolitica Not Detected (Not Detect.)
[2022-08-26 22:04] LABS: Pancreatic Elastase-1 247 mcg/g
== END 2022-08-19 08:16 | disposition home or self-care (01) ==
LOC: HO.LNP 08:15
PROVIDERS: Visit Provider Nurse Practitioner Family
DX: R10.9 Unspecified abdominal pain (principal); R19.7 Diarrhea, unspecified
CPT/HCPCS: 82656; 87507

== ENCOUNTER 2022-09-29 09:47 | Outpatient (REF) | payer OTHER, SELFPAY ==
--- NOTE | ~2022-09-29 | MR_ITS ---
EXAMINATION: MR ANKLE WITHOUT AND WITH CONTRAST, RIGHT CLINICAL INFORMATION: Right ankle pain. Evaluate for synovitis, signs of septic arthritis vs. bone mass. COMPARISON: Radiographs dated 07/15/2022 TECHNIQUE: MRI of the ankle was performed before and after the intravenous administration of 5.5 mL gadolinium on a high-field scanner. Examination is slightly limited by motion artifact. FINDINGS: ACHILLES TENDON: Intact. Mild enthesopathic spurring. No tendinosis or peritendinitis. OTHER TENDONS: There is a longitudinal partial tear of the peroneus brevis extending over a distance of 7 cm, centered at the level of the lateral malleolar tip. Mild tenosynovitis. Peroneus longus is normal. Extensor and medial flexor tendons are normal. LIGAMENTS: Anterior talofibular ligament is ill-defined with abnormal morphology at the lateral malleolar insertion, most consistent with a chronic partial tear. Calcaneofibular, posterior talofibular, and distal tibiofibular ligaments appear intact. Deltoid and spring ligaments are normal. BONE AND ARTICULAR CARTILAGE: Talocrural and subtalar joints appear relatively well-preserved. No osteochondral lesions are identified. Small marginal osteophytes are evident in the midfoot at the tarsometatarsal joints. No fracture or malalignment. No joint effusion or synovitis. JOINT FLUID AND SOFT TISSUES: No effusion. Edema signal is present in the subcutaneous fat. No significant sites of abnormal enhancement are identified. PLANTAR FASCIA: Normal. SINUS TARSI AND TARSAL TUNNEL: Normal. MR/MR ankle RT wo/w con IMPRESSION: 1. Longitudinal partial tear of the peroneus brevis with mild associated tenosynovitis. 2. 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 3. No evidence of septic arthritis or bone lesions. 4. Minimal osteoarthritis in the midfoot.
== END 2022-09-29 09:48 | disposition home or self-care (01) ==
LOC: HO.MRI 09:47
PROVIDERS: PCP Internal Medicine Geriatric Medicine; Visit Provider Student in an Organized Health Care Education/Training Program
DX: M25.571 Pain in right ankle and joints of right foot (principal)
CPT/HCPCS: 73723; A9585

== ENCOUNTER → 2022-10-04 08:57 | Outpatient (BNVA) | payer OTHER, SELFPAY | PROVIDERS: PCP Internal Medicine Geriatric Medicine; Referring Provider Internal Medicine Geriatric Medicine; Visit Provider Nurse Practitioner Family | DX: K58.1 Irritable bowel syndrome with constipation (principal); R10.13 Epigastric pain; R14.0 Abdominal distension (gaseous) | CPT/HCPCS: 99212 ==

== ENCOUNTER 2022-10-12 11:29 | Outpatient (REF) | payer OTHER, SELFPAY ==
[2022-10-12 12:58] LABS: MANUAL DIFF FLAG NO
[2022-10-12 13:57] LABS: Basophils Percent Auto 0.5 % (0-2); Eosinophils Absolute Auto 0.1 X10*3/uL (0.0-0.4); Hematocrit 37.3 % (37.0-47.0); Hemoglobin 11.9 g/dl (12.0-16.0); Imm Gran Abs Auto 0.01 X10*3/uL (0.00-0.03); Imm Gran Pct Auto 0.2 % (0.0-0.4); Lymphocytes Absolute Auto 2.9 X10*3/uL (1.2-4.9); Lymphocytes Percent Auto 48.3 % (20-40); Mean Corpuscular HGB Conc 31.9 g/dl (31.0-35.0); Mean Corpuscular Hemoglobin 28.6 pg (27.0-33.0); Mean Corpuscular Volume 89.7 fL (80.0-98.0); Mean Platelet Volume 9.1 fL (9.4-12.3); Monocytes Absolute Auto 0.5 X10*3/uL (0.1-1.2); Monocytes Percent Auto 8.4 % (2-11); Neutrophils Absolute Auto 2.4 x10*3/uL (2.0-8.3); Neutrophils Percent Auto 40.6 % (45-73); Platelet Count 238 X10*3/uL (160-400); Red Blood Count 4.16 X10*6/uL (4.20-5.50); Red Cell Distribution Width 13.5 % (11.0-16.0)
[2022-10-12 14:29] LABS: Alanine Aminotransferase 12 U/L (0-31); Albumin Level 3.8 g/dL (3.5-5.0); Alkaline Phosphatase 71 U/L (39-117); Anion Gap 12 (12-20); Aspartate Amino Transferase 19 U/L (5-31); Bilirubin Total 0.4 mg/dL (0.0-1.0); Blood Urea Nitrogen 14 mg/dL (9-16); Calcium 10.5 mg/dL (8.4-10.2); Carbon Dioxide 27 mmol/L (22-29); Chloride 105 mmol/L (96-108); Estimated Glomerular Filt Rate > 60; Glucose Random 74 mg/dL (60-115); Potassium 4.1 mmol/L (3.3-5.1); Rheumatoid Factor 107.6 IU/mL (<15.0); Sodium 140 mmol/L (135-145); Total Protein 7.5 g/dL (6.5-8.0)
[2022-10-12 15:03] LABS: Erythrocyte Sedimentation Rate 36 MM/HR (0-20)
[2022-10-21 06:37] LABS: PTT (LAC) Screen 36 sec (<=40)
[2022-10-21 10:43] LABS: Myeloperoxidase Antibody 45.8 AI; Proteinase 3 PR3 Antibodies <1.0 AI
== END 2022-10-12 11:30 | disposition home or self-care (01) ==
LOC: HO.LAB 11:29
PROVIDERS: PCP Internal Medicine Geriatric Medicine; Visit Provider Student in an Organized Health Care Education/Training Program
DX: I77.82 Antineutrophilic cytoplasmic antibody [ANCA] vasculitis (principal); R76.8 Other specified abnormal immunological findings in serum; R76.0 Raised antibody titer; M76.71 Peroneal tendinitis, right leg; F41.9 Anxiety disorder, unspecified; J45.909 Unspecified asthma, uncomplicated; F32.A Depression, unspecified; E11.40 Type 2 diabetes mellitus with diabetic neuropathy, unspecified; E27.40 Unspecified adrenocortical insufficiency; R41.3 Other amnesia; R63.4 Abnormal weight loss; Z86.73 Personal history of transient ischemic attack (TIA), and cerebral infarction without residual deficits; Z79.891 Long term (current) use of opiate analgesic; Z79.84 Long term (current) use of oral hypoglycemic drugs; Z79.899 Other long term (current) drug therapy; Z87.891 Personal history of nicotine dependence
CPT/HCPCS: 36415; 80053; 85025; 85597; 85613; 85652; 85730; 86021; 86140; 86431; 99212

== ENCOUNTER → 2022-11-15 14:08 | Outpatient (BNVA) | payer OTHER, SELFPAY | PROVIDERS: PCP Internal Medicine Geriatric Medicine; Visit Provider Orthopaedic Surgery | DX: M76.71 Peroneal tendinitis, right leg (principal); M76.72 Peroneal tendinitis, left leg; R60.0 Localized edema; E11.9 Type 2 diabetes mellitus without complications | CPT/HCPCS: 99202 ==

== ENCOUNTER 2022-12-06 10:02 | Outpatient (AMB) | payer OTHER, SELFPAY ==
[2022-12-06 10:16] VITALS: BP 140/63; PULSE 68; BMI 22.8
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
== END 2022-12-06 11:26 | disposition home or self-care (01) ==
PROVIDERS: PCP Internal Medicine Geriatric Medicine; Visit Provider Nurse Practitioner Family
DX: R10.13 Epigastric pain (principal); K58.2 Mixed irritable bowel syndrome; R14.0 Abdominal distension (gaseous)
CPT/HCPCS: 99214

== ENCOUNTER → 2022-12-06 10:02 | Outpatient (BNVA) | payer OTHER, SELFPAY | PROVIDERS: PCP Internal Medicine Geriatric Medicine; Visit Provider Nurse Practitioner Family | DX: K21.9 Gastro-esophageal reflux disease without esophagitis (principal); R10.13 Epigastric pain; K58.2 Mixed irritable bowel syndrome; R14.0 Abdominal distension (gaseous); Z90.49 Acquired absence of other specified parts of digestive tract | CPT/HCPCS: 99212 ==

== ENCOUNTER 2022-12-08 10:05 | Outpatient (REF) | payer OTHER, SELFPAY ==
[2022-12-08 11:34] LABS: Alanine Aminotransferase 12 U/L (0-31); Albumin Level 3.8 g/dL (3.5-5.0); Alkaline Phosphatase 57 U/L (39-117); Anion Gap 9 (12-20); Aspartate Amino Transferase 15 U/L (5-31); Bilirubin Total 0.5 mg/dL (0.0-1.0); Blood Urea Nitrogen 16 mg/dL (9-16); Calcium 10.1 mg/dL (8.4-10.2); Carbon Dioxide 27 mmol/L (22-29); Chloride 104 mmol/L (96-108); Estimated Glomerular Filt Rate > 60; Glucose Random 118 mg/dL (60-115); Lipase 9 U/L (8-78); Potassium 3.3 mmol/L (3.3-5.1); Sodium 137 mmol/L (135-145); Total Protein 7.4 g/dL (6.5-8.0)
== END 2022-12-08 10:06 | disposition home or self-care (01) ==
LOC: HO.LAB 10:05
PROVIDERS: PCP Internal Medicine Geriatric Medicine; Visit Provider Nurse Practitioner Family
DX: R10.9 Unspecified abdominal pain (principal); K21.9 Gastro-esophageal reflux disease without esophagitis
CPT/HCPCS: 36415; 80053; 83690

== ENCOUNTER 2022-12-10 13:41 | Day surgery (SDC) | payer OTHER, SELFPAY ==
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
[2022-12-10 12:40] VITALS: BMI 23.4
[2022-12-10 13:42] VITALS: BP 125/61; PULSE 70; RESP 18; TEMP 36.6; O2SAT 97; BMI 23.6
[2022-12-10] MEDS: Lactated Ringers 1,000 ML 100 ML IVCONT (14:07)
[2022-12-10 14:14] LABS: Glucose, Whole Blood 75 mg/dL (60-115)
--- NOTE | 2022-12-10 14:48 | MHC.SHP ---
Pre-Procedural Eval Section A Date of Service: 12/10/22 The patient is an INPATIENT: No Changes since office visit: Yes Patient answered all questions; No Cold of Flu in the past 2 weeks, No New Medical Problems and No Changes in Medication The History & Physical has been completed within 30 days and I have reviewed it.: Yes Section B Chief Complaint: Epigastric pain, Mixed IBS, Abdominal distension Allergies: Allergies Allergy/AdvReac Type Severity Reaction Status Date / Time Seasonal Allergies Allergy Mild Unknown Verified 12/06/22 10:16 acetaminophen [From Percocet] Allergy throat Verified 12/06/22 10:16 swelling, itching oxycodone [From Percocet] Allergy throat Verified 12/06/22 10:16 swelling Plan Diagnosis/Plan: Change (Proceed with EGD and colonoscopy) I have reviewed the history and physical and performed a pertinent physical examination on my patient. No changes have occurred unless specified. Time Spent With Patient Time: Total time managing care of this patient today ____ minutes.
--- NOTE | 2022-12-10 14:55 | P.OP_ITS ---
Operative Note Operative Note Date of Service: 12/10/22 Narrative: FLEXIBLE TRANSORAL UPPER GASTROINTESTINAL ENDOSCOPY WITH BIOPSIES AND COLONOSCOPY TILL CECUM WITH BIOPSIES Pre-op diagnosis: Colon cancer screening, abdominal pain, nausea, bloating, dyspepsia Post-op diagnosis: Gastritis, gastric polyp, diverticulosis, hemorrhoids Endoscopist:? Thanh Razo MD Anesthesia:?MAC UPPER ENDOSCOPY Consent: Indications for the procedure and potential complications of bleeding, perforation, reaction to medications and missed diagnosis were discussed with the patient and informed consent was obtained. Instrument: Olympus GIF H 190 mid size upper endoscope Monitoring: Vital signs and clinical assessment, continuous EKG monitoring, Pulse oximetry, Carbon Dioxide monitoring and blood pressure monitoring were done throughout the procedure. Procedure: The patient was placed in the left lateral decubitis position and pre-procedure medications were administered and a bite block was placed. The endoscope was inserted into the mouth and advanced under direct vision to the third part of duodenum. A careful inspection was made as the upper endoscope was withdrawn including a retroflexed examination of the proximal stomach; Findings and interventions are described below. Findings: Larynx: Normal Esophagus: GE junction at 36 cms. No esophagitis or Quesada's. Stomach: Small amount of retained food in the stomach. A 5-6 mm benign appearing polyp in the gastric body along the lesser curvature - biopsied. Mild gastric antral erythema. Biopsies were obtained. Grade 2 flap valve on retroflexed examination of the cardia. Duodenum: Normal bulb and descending duodenum. A medium sized diverticulum in the lateral wall of 2nd part of duodenum. Biopsies were obtained from 3rd part of the duodenum to check for celiac sprue Intervention: Biopsies as noted above COLONOSCOPY PROCEDURE NOTE Consent: Indications for the procedure and potential complications of bleeding, perforation, reaction to medications and missed diagnosis were discussed with the patient and informed consent was obtained. Instrument: Olympus PCF H 190 L variable stiffness pediatric colonoscope Monitoring: Vital signs and clinical assessment, intermittent blood pressure monitoring, continuous EKG monitoring, Pulse oximetry and Carbon Dioxide monitoring were done throughout the procedure. Colon withdrawl time was 21 minutes. Procedure: The patient was placed in the left lateral decubitis position and pre-procedure medications were administered. After a digital rectal examination of the ano-rectum, the video colonoscope was inserted into the rectum and advanced through the colon to the cecum. The colonoscope was slowly withdrawn in a retrograde panoramic fashion and the colon mucosa was carefully examined including a retroflexed view of the rectum. Findings and interventions are described below. Procedure Difficulty: Colon was long and tortuous and there was some loop formation - no maneuvers were required Findings: Terminal Ileum: Not evaluated Cecum: Partially evaluated due to suboptimal prep with undigested vegetable matter which could not be suctioned Ascending Colon: Normal Transverse Colon: Normal Descending Colon: Normal Sigmoid Colon: Partially evaluated due to suboptimal prep with undigested vegetable matter which could not be suctioned Moderate diverticulosis Rectum: Normal Ano-rectum: Moderate internal hemorrhoids Colon preparation: Good after copious irrigation and fair to poor in the cecum and sigmoid colon Impression and Post Procedure Diagnosis: Endoscopy Findings: STOMACH: Gastritis and benign appearing gastric polyps Small amount of retained food in the stomach raising concern for possible gastroparesis. DUODENUM: Normal - biopsied to check for celiac sprue Colonoscopy Findings: No polyps were detected Random biopsies obtained from the right and left colon to check for microscopic colitis. Moderate diverticulosis seen in the left colon Moderate hemorrhoids on retroflexed exam. Plan: Await pathology results Patient has an appointment on 12/27/22 in the [facility] with Desire Vizcaino FNP- [facility] . Consider further evaluation with a gastric emptying study to rule out gastroparesis. Repeat Colonoscopy interval based on path results - in 3-5 years if polyps are adenomatous and 10 years if polyps are hyperplastic. Above findings were reviewed with the patient and Gastric polyps and diverticulosis handouts were given in the discharge area OF NOTE: 04/[address] SCAN SHOWED: ?Ill-defined hypoattenuating margins in the pancreatic head with subtle surrounding fat stranding, raising the possibility of mild pancreatitis. Consider correlation with serum amylase and lipase. Consider further evaluation with lipase, fecal elastase and MRI/MRCP to rule out chronic pancreatitis
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
[2022-12-10 15:51] VITALS: BP 91/46; PULSE 52; RESP 16; TEMP 36.3; O2SAT 100
[2022-12-10 16:06] VITALS: BP 120/63; PULSE 59; RESP 14; O2SAT 98
[2022-12-10 16:21] VITALS: BP 135/58; PULSE 58; RESP 16; O2SAT 98
[2022-12-10 16:31] LABS: Glucose, Whole Blood 73 mg/dL (60-115)
[2022-12-10 16:31] LABS: Glucose, Whole Blood 62 mg/dL (60-115)
[2022-12-10 16:36] VITALS: BP 141/62; PULSE 58; RESP 16; TEMP 36.3; O2SAT 98
== END 2022-12-10 16:56 | disposition home or self-care (01) ==
PROVIDERS: PCP Internal Medicine Geriatric Medicine; Visit Provider Internal Medicine Gastroenterology
PROC: (CPT 45380; principal; 2022-12-10 14:50)
DX: Z12.11 Encounter for screening for malignant neoplasm of colon (principal); K57.30 Diverticulosis of large intestine without perforation or abscess without bleeding; K64.8 Other hemorrhoids; K29.80 Duodenitis without bleeding; K29.60 Other gastritis without bleeding; K31.7 Polyp of stomach and duodenum; R10.13 Epigastric pain; K58.2 Mixed irritable bowel syndrome; R14.0 Abdominal distension (gaseous); E11.9 Type 2 diabetes mellitus without complications; J45.909 Unspecified asthma, uncomplicated; Z90.49 Acquired absence of other specified parts of digestive tract; Z86.73 Personal history of transient ischemic attack (TIA), and cerebral infarction without residual deficits; Z87.891 Personal history of nicotine dependence; Z79.899 Other long term (current) drug therapy; Z79.84 Long term (current) use of oral hypoglycemic drugs
CPT/HCPCS: 45380; 43239; 82947; 88305; 88342

== ENCOUNTER → 2022-12-10 13:41 | Outpatient (BNV) | payer OTHER, SELFPAY | PROVIDERS: PCP Internal Medicine Geriatric Medicine; Visit Provider Internal Medicine Gastroenterology | DX: Z12.11 Encounter for screening for malignant neoplasm of colon (principal); K57.30 Diverticulosis of large intestine without perforation or abscess without bleeding; K30 Functional dyspepsia; K31.7 Polyp of stomach and duodenum | CPT/HCPCS: 43239; 45380 ==

== ENCOUNTER 2022-12-27 10:43 | Outpatient (REF) | payer OTHER, SELFPAY ==
[2022-12-27 13:23] LABS: Amylase 66 U/L (28-100); Lipase 9 U/L (8-78)
== END 2022-12-27 10:44 | disposition home or self-care (01) ==
LOC: HO.LAB 10:43
PROVIDERS: PCP Internal Medicine Geriatric Medicine; Visit Provider Nurse Practitioner Family
DX: R10.13 Epigastric pain (principal); K58.1 Irritable bowel syndrome with constipation; R14.0 Abdominal distension (gaseous); K29.50 Unspecified chronic gastritis without bleeding; K21.9 Gastro-esophageal reflux disease without esophagitis; K59.03 Drug induced constipation; Z98.890 Other specified postprocedural states
CPT/HCPCS: 36415; 82150; 83690; 99212

== ENCOUNTER 2022-12-27 10:43 | Outpatient (AMB) | payer OTHER, SELFPAY ==
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
[2022-12-27 10:54] VITALS: BP 97/55; PULSE 71; BMI 22.3
== END 2022-12-27 11:40 | disposition home or self-care (01) ==
PROVIDERS: PCP Internal Medicine Geriatric Medicine; Visit Provider Nurse Practitioner Family
DX: R10.13 Epigastric pain (principal); K58.1 Irritable bowel syndrome with constipation; R14.0 Abdominal distension (gaseous); Z98.890 Other specified postprocedural states; K29.50 Unspecified chronic gastritis without bleeding; K59.03 Drug induced constipation
CPT/HCPCS: 99214

== ENCOUNTER 2022-12-29 14:25 | Outpatient (AMB) | payer OTHER, SELFPAY ==
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
[2022-12-29 14:29] VITALS: BP 102/60; PULSE 70; TEMP 36.7; O2SAT 96; BMI 22.0
== END 2022-12-29 15:15 | disposition home or self-care (01) ==
PROVIDERS: PCP Internal Medicine Geriatric Medicine; Visit Provider Student in an Organized Health Care Education/Training Program
DX: I77.82 Antineutrophilic cytoplasmic antibody [ANCA] vasculitis (principal); R01.1 Cardiac murmur, unspecified
CPT/HCPCS: 99214

== ENCOUNTER → 2022-12-29 14:25 | Outpatient (BNVA) | payer OTHER, SELFPAY | PROVIDERS: PCP Internal Medicine Geriatric Medicine; Visit Provider Student in an Organized Health Care Education/Training Program | DX: I77.82 Antineutrophilic cytoplasmic antibody [ANCA] vasculitis (principal); R01.1 Cardiac murmur, unspecified | CPT/HCPCS: 99212 ==

== ENCOUNTER 2022-12-30 13:22 | Outpatient (AMB) | payer OTHER, SELFPAY ==
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
[2022-12-30 13:36] VITALS: BP 110/60; PULSE 74; O2SAT 96; BMI 21.8
== END 2022-12-30 14:16 | disposition home or self-care (01) ==
PROVIDERS: PCP Internal Medicine Geriatric Medicine; Visit Provider Hospitalist
DX: R40.0 Somnolence (principal); R91.8 Other nonspecific abnormal finding of lung field; R06.00 Dyspnea, unspecified; I77.82 Antineutrophilic cytoplasmic antibody [ANCA] vasculitis
CPT/HCPCS: 99204

== ENCOUNTER → 2022-12-30 13:22 | Outpatient (BNVA) | payer OTHER, SELFPAY | PROVIDERS: PCP Internal Medicine Geriatric Medicine; Visit Provider Hospitalist | DX: R91.8 Other nonspecific abnormal finding of lung field (principal); R06.00 Dyspnea, unspecified; I77.82 Antineutrophilic cytoplasmic antibody [ANCA] vasculitis; R40.0 Somnolence | CPT/HCPCS: 99202 ==

== ENCOUNTER 2023-01-05 09:13 | Outpatient (REF) | payer OTHER, SELFPAY ==
[2023-01-05 09:36] LABS: MANUAL DIFF FLAG NO
[2023-01-05 10:04] LABS: Basophils Percent Auto 0.6 % (0-2); Eosinophils Absolute Auto 0.1 X10*3/uL (0.0-0.4); Eosinophils Percent Auto 1.9 % (0-4); Hematocrit 37.4 % (37.0-47.0); Hemoglobin 12.1 g/dl (12.0-16.0); Imm Gran Abs Auto 0.01 X10*3/uL (0.00-0.03); Imm Gran Pct Auto 0.2 % (0.0-0.4); Lymphocytes Absolute Auto 2.3 X10*3/uL (1.2-4.9); Lymphocytes Percent Auto 43.6 % (20-40); Mean Corpuscular HGB Conc 32.4 g/dl (31.0-35.0); Mean Corpuscular Hemoglobin 29.3 pg (27.0-33.0); Mean Corpuscular Volume 90.6 fL (80.0-98.0); Mean Platelet Volume 8.8 fL (9.4-12.3); Monocytes Absolute Auto 0.4 X10*3/uL (0.1-1.2); Monocytes Percent Auto 7.3 % (2-11); Neutrophils Absolute Auto 2.5 x10*3/uL (2.0-8.3); Neutrophils Percent Auto 46.4 % (45-73); Platelet Count 270 X10*3/uL (160-400); Red Blood Count 4.13 X10*6/uL (4.20-5.50); Red Cell Distribution Width 12.5 % (11.0-16.0); White Blood Count 5.4 X10*3/uL (4.8-10.8)
[2023-01-05 10:47] LABS: Alanine Aminotransferase 8 U/L (0-31); Albumin Level 4.1 g/dL (3.5-5.0); Alkaline Phosphatase 74 U/L (39-117); Anion Gap 10 (12-20); Aspartate Amino Transferase 13 U/L (5-31); Bilirubin Total 0.3 mg/dL (0.0-1.0); Blood Urea Nitrogen 26 mg/dL (9-16); C Reactive Protein 0.14 mg/dL (< or = 0.50); Calcium 10.3 mg/dL (8.4-10.2); Carbon Dioxide 30 mmol/L (22-29); Chloride 102 mmol/L (96-108); Erythrocyte Sedimentation Rate 23 MM/HR (0-20); Estimated Glomerular Filt Rate 48; Glucose Random 90 mg/dL (60-115); Potassium 3.5 mmol/L (3.3-5.1); Sodium 138 mmol/L (135-145); Total Protein 7.9 g/dL (6.5-8.0)
[2023-01-10 21:24] LABS: Myeloperoxidase Antibody 29.4 AI; Proteinase 3 PR3 Antibodies <1.0 AI
[2023-01-10 22:59] LABS: IgA 698 mg/dL (70-320); IgG 1945 mg/dL (600-1540); IgM 60 mg/dL (50-300)
== END 2023-01-05 09:14 | disposition home or self-care (01) ==
LOC: HO.LAB 09:13
PROVIDERS: PCP Internal Medicine Geriatric Medicine; Visit Provider Student in an Organized Health Care Education/Training Program
DX: I77.82 Antineutrophilic cytoplasmic antibody [ANCA] vasculitis (principal)
CPT/HCPCS: 36415; 80053; 82784; 85025; 85652; 86021; 86140

== ENCOUNTER → 2023-01-13 07:31 | Outpatient (REF) | payer OTHER, SELFPAY ==
--- NOTE | ~2023-01-13 | NM_ITS ---
EXAMINATION: NM RADIONUCLIDE SOLID FOOD GASTRIC EMPTYING 4-HOUR STUDY CLINICAL INFORMATION: Gastroesophageal reflux disease without esophagitis. COMPARISON: None. TECHNIQUE: A meal consisting of 8 ounces of Ensure-plus Brand tagged with 960 microcuries Tc-99m Sulfur Colloid, was administered orally to the patient. This fatty supplement was used because the patient could not tolerate eggs, and has been shown to closely mimic gastric emptying of labeled eggs. Images were obtained using a dual head gamma camera in the anterior and posterior projections over of the stomach immediately post ingestion and at hourly intervals up to 4 hours post ingestion. The anterior and posterior counts at each time interval were averaged using the geometric mean and expressed as percentage of the immediate post ingestion counts. FINDINGS: There is good visualization of activity in the stomach immediately post ingestion. As the study progresses, there is rapid clearance of activity from the stomach and visualization of progressively increasing small bowel activity. By the end of the study, there is almost no retention noted in the stomach. Retention in the stomach at each time interval was: 1 hour 26% (normal 37%-90%) 2 hours 1% (normal 30%-60%) 3 hours 1% 4 hours estimation was not performed since only 1% was retained the end of 3 hours. NM/NM gastric emptying study IMPRESSION: Rapid gastric emptying. Ensure-plus Brand supplement was used instead of radio-labeled eggs because of the patient's intolerance to eggs. This supplement has been shown to closely mimic gastric emptying of labeled eggs. (For solid meal, rapid gastric emptying is less than 30% at 60 minutes. Delayed gastric emptying criteria is more than 60% remaining at 120 minutes or more than 10% at 240 minutes. The 4-hour value is the best discriminator of a normal or abnormal result). Gastric emptying study grading per JNMT Consensus Recommendations in 2008 (https://tech.snmjournals.org/content/36/1/44) Grade 1 (mild retention): 11-20% at 4h Grade 2 (moderate retention): 21-35% at 4h Grade 3 (severe retention): 36-50% at 4h Grade 4 (very severe retention): >50% retention at 4h
== END ==
LOC: HO.NUCMED 07:31
PROVIDERS: Visit Provider Nurse Practitioner Family
DX: K21.9 Gastro-esophageal reflux disease without esophagitis (principal)
CPT/HCPCS: 78264; A9541

== ENCOUNTER 2023-01-19 08:09 | Outpatient (REF) | payer OTHER, SELFPAY ==
--- NOTE | ~2023-01-19 | CT_ITS ---
EXAMINATION: CT ABDOMEN AND PELVIS WITH CONTRAST CLINICAL INFORMATION: Abdominal pain COMPARISON: 05/06/2022 TECHNIQUE: Multidetector volumetric images were obtained from the superior aspect of the liver through the pubic symphysis following administration 85 mL of Omnipaque 350 intravenous contrast. Sagittal and coronal reformatted images were obtained on the technologist's workstation. Oral contrast: Used This CT examination was performed using dose optimization techniques as appropriate, variously including the following: *Automated exposure control *Adjustment of mA and/or kV according to patient size (this includes techniques or standardized protocols for targeted exams where dose is matched to indication/reason for exam; i.e. extremities or head) *Use of iterative reconstruction technique DLP: 265 mGy-cm FINDINGS: LUNG BASES: The visualized lung bases are unremarkable. LIVER, GALLBLADDER, AND BILIARY TREE: The liver is enlarged, of normal shape and attenuation. No focal hepatic lesion or biliary ductal dilatation is present. The gallbladder is unremarkable with no evidence of radiopaque gallstones, gallbladder wall thickening, or obvious pericholecystic inflammatory changes. PANCREAS: Unremarkable. SPLEEN: Unremarkable. ADRENAL GLANDS: Unremarkable. KIDNEYS AND URETERS: There is nonobstructing 0.4 cm calculus in interpolar area of left kidney there is no evidence of nephrolithiasis on the right. Ureters are nondilated. 2 other calculi seen on the previous study are not identified. BLADDER: Urinary bladder is decompressed and limited for evaluation. . GASTROINTESTINAL TRACT: The small and large bowel are unremarkable, with redundancy mesentery is unremarkable. Of colonic loops and large amount of fecal debris in the colon. The appendix is not seen.. ABDOMINAL WALL: No significant hernia is appreciated. LYMPH NODES: Normal. VASCULAR: Unremarkable. PELVIC VISCERA: Unremarkable. OSSEOUS STRUCTURES: There is facet arthropathy and there is new since previous examination mild compression deformity of L5 vertebral body with flattening of the superior facet CT/CT abdomen pelvis w IV con IMPRESSION: 1. No explanation for abdominal pain. 2. Constipation. 3. Nonobstructing calculus in the left kidney. 4. New mild compression deformity of L5 vertebral body. Fleischner guidelines were followed.
[2023-01-19] MEDS: iohexoL 350 MG/ML 100 ML INFUS..BTL IV (11:16)
[2023-01-19] MEDS: Barium Sulfate Oral (Mocha) 450 ML ORAL.SUSP 900 ML PO (11:17)
== END 2023-01-19 08:10 | disposition home or self-care (01) ==
LOC: HO.CT 08:09
PROVIDERS: PCP Internal Medicine Geriatric Medicine; Visit Provider Nurse Practitioner Family
DX: R10.9 Unspecified abdominal pain (principal)
CPT/HCPCS: 74177; Q9967

== ENCOUNTER 2023-01-31 11:11 | Outpatient (AMB) | payer OTHER, SELFPAY ==
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
[2023-01-31 11:20] VITALS: BP 95/45; PULSE 70; BMI 23.0
[2023-01-31 11:33] VITALS: BP 104/49
== END 2023-01-31 12:00 | disposition home or self-care (01) ==
PROVIDERS: PCP Internal Medicine Geriatric Medicine; Visit Provider Nurse Practitioner Family
DX: R10.13 Epigastric pain (principal); K58.1 Irritable bowel syndrome with constipation; R14.0 Abdominal distension (gaseous); K29.50 Unspecified chronic gastritis without bleeding; K59.03 Drug induced constipation
CPT/HCPCS: 99214

== ENCOUNTER → 2023-01-31 11:11 | Outpatient (BNVA) | payer OTHER, SELFPAY | PROVIDERS: PCP Internal Medicine Geriatric Medicine; Visit Provider Nurse Practitioner Family | DX: R10.13 Epigastric pain (principal); K58.1 Irritable bowel syndrome with constipation; R14.0 Abdominal distension (gaseous); K29.50 Unspecified chronic gastritis without bleeding; K59.03 Drug induced constipation | CPT/HCPCS: 99212 ==

== ENCOUNTER → 2023-02-18 08:46 | Outpatient (REF) | payer OTHER, SELFPAY ==
--- NOTE | 2023-02-18 08:49 | CA_ITS ---
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 Normal LV ejection fraction of 60-65% with normal diastolic filling pattern 2. Mildly calcified aortic valve with slightly increased gradient with mild aortic regurgitation 3. Normal RV systolic pressure 4. No pericardial effusion Findings Left Ventricle Normal left ventricular size, thickness, and systolic function. The visually estimated ejection fraction is between 60-65%. Diastolic function is normal for age. Peak GLS is -19.8%, which is within normal limits. Right Ventricle Normal right ventricular cavity size and systolic function. Atria Both atria are normal in size. There is no evidence of interatrial shunt. Aortic Valve There is mild calcification of the aortic valve. There is mild aortic valve regurgitation. Mitral Valve There is mild anterior mitral leaflet thickening. There is trace mitral valve regurgitation. There is no mitral valve stenosis. Pulmonic Valve The pulmonic valve was not well visualized. Tricuspid Valve Likely normal tricuspid valve structure and function. There is mild tricuspid valve regurgitation. The right ventricular systolic pressure is normal. The right ventricular systolic pressure is 30 mmHg. Normal right atrial pressure. There is no evidence of pulmonary hypertension. Great Vessels All visible segments of the aorta are normal in size. The pulmonary artery was not well visualized. There is no dilatation of the ascending aorta. Venous The inferior vena cava is normal in size and collapses greater than 50% with inspiration. Pericardium/Pleural There is no evidence of pericardial effusion. Prior Study Comparison No prior study available for comparison. Measurements 2D Linear Measurements IVSd: 0.80 0.6-0.9/0.6-1.0 cm LVIDd: 4.70 3.9-5.3/4.2-5.9 cm LVIDd Index: 3.13 2.4-3.2/2.2-3.1 cm/m2 LVIDs: 3.00 2.0-3.6 cm LVPWd: 0.70 0.7-1.1 cm LA Diam: 3.40 2.7-3.8/3.0-4.0 cm LAIDs Index: 2.27 1.5-2.3 cm/m2 LV Mass: 139.89 67-162/88-224 g LV Mass Index: 93.26 43-95/49-115 g/m2 LVOT Diam: 2.10 3.0+(-)1.3 cm 2D Systolic Function EF 4C: 56.10 >55% EF 2C: 69.90 >55% EF BiP: 64.20 >55% Mitral Valve MV Pk E: 1.08 MV PK A: 0.86 MV Decel Time: 192.00 E/A: 1.30 E'Lateral: 10.30 E'Medial: 6.96 E/E' Med: 15.50 E/E' Lat: 10.50 PHT: 56.00 MVA PHT: 3.93 Decel [place]: 5.63 Aortic Valve AoV Pk David: 1.87 AoV Mn David: 1.25 AoV VTI: 0.40 AoV Pk Grad: 14.00 Aov Mn Grad: 7.00 REMBERTO Cont.VTI: 2.51 AI Pk David: 4.26 AI VTI: 1.87 AI [place]: 2.89 AI Alias David: 0.38 AI RV - PISA: 9.00 ERO - PISA: 5.00 LVOT LVOT Pk David: 1.36 LVOT Mn David: 0.90 LVOT VTI: 0.29 LVOT Pk Grad: 7.00 LVOT Mn Grad: 4.00 LVOT Diam: 2.10 LVOT Area: 3.46 Diastolic Function MV Pk E: 1.08 MV Pk A: 0.86 E/A: 1.30 E'Medial: 6.96 E/E' Med: 15.50 E' Laterial: 10.30 E/E' Lat: 10.50 Right Ventricle TAPSE (mm): 32.60 TVS' David: 14.50 Tricuspid Valve TR Pk David: 2.62 TR Pk Grad: 27.00 RA Press: 3.00 RVSP: 30.00 Great Vessels Aorta Sinus of Valsalva: 3.10 2.0-3.5 cm Ao Asc: 3.10 2.1-3.4 cm Pulmonary Veins Pulm Vein S/D 1.80 Pulmonary Valve PV Pk David: 0.95 Peak PV Grad: 4.00 Updated in Other Vendor System with Status of Final Bruce Lynn MD electronically signed on 02/18/2023 11:17:27 AM with status of Final
== END ==
LOC: HO.CARD 08:46
PROVIDERS: PCP Internal Medicine Geriatric Medicine; Visit Provider Student in an Organized Health Care Education/Training Program
DX: R01.1 Cardiac murmur, unspecified (principal)
CPT/HCPCS: 93306; 93356

== ENCOUNTER → 2023-02-18 08:49 | Outpatient (BNV) | payer OTHER, SELFPAY | PROVIDERS: PCP Internal Medicine Geriatric Medicine; Visit Provider Internal Medicine Cardiovascular Disease | DX: I35.1 Nonrheumatic aortic (valve) insufficiency (principal); I36.1 Nonrheumatic tricuspid (valve) insufficiency | CPT/HCPCS: 93306 ==

== ENCOUNTER → 2023-02-21 10:56 | Outpatient (BNVA) | payer OTHER, SELFPAY | PROVIDERS: PCP Internal Medicine Geriatric Medicine; Visit Provider Nurse Practitioner Family | DX: K59.01 Slow transit constipation (principal); K58.9 Irritable bowel syndrome, unspecified; R10.13 Epigastric pain; R14.0 Abdominal distension (gaseous); K29.50 Unspecified chronic gastritis without bleeding | CPT/HCPCS: 99212 ==

== ENCOUNTER 2023-02-21 11:03 | Outpatient (AMB) | payer OTHER, SELFPAY ==
[2023-02-21 11:05] VITALS: BP 118/46; PULSE 69; BMI 22.9
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
== END 2023-02-21 11:42 | disposition home or self-care (01) ==
PROVIDERS: PCP Internal Medicine Geriatric Medicine; Visit Provider Nurse Practitioner Family
DX: R10.13 Epigastric pain (principal); K58.9 Irritable bowel syndrome, unspecified; R14.0 Abdominal distension (gaseous); K29.50 Unspecified chronic gastritis without bleeding; K59.01 Slow transit constipation
CPT/HCPCS: 99214

== ENCOUNTER 2023-03-18 12:36 | Outpatient (REF) | payer OTHER, SELFPAY ==
[2023-03-18 14:55] LABS: Folate 11.5 ng/mL (> or = 4.0); Vitamin B12 546 pg/mL (200-900)
[2023-03-21 13:33] LABS: RPR Rapid Plasma Reagin NON-REACTIVE (NON-REACTIVE)
== END 2023-03-18 12:37 | disposition home or self-care (01) ==
LOC: HO.HHCL 12:36
PROVIDERS: Visit Provider Internal Medicine Geriatric Medicine
DX: R41.3 Other amnesia (principal)
CPT/HCPCS: 36415; 82607; 82746; 84443; 86592

== ENCOUNTER 2023-03-30 09:42 | Outpatient (AMB) | payer OTHER, SELFPAY ==
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
[2023-03-30 09:51] VITALS: BP 128/60; PULSE 68; O2SAT 100; BMI 22.5
== END 2023-03-30 10:02 | disposition home or self-care (01) ==
PROVIDERS: PCP Internal Medicine Geriatric Medicine; Visit Provider Hospitalist
DX: R40.0 Somnolence (principal); R91.8 Other nonspecific abnormal finding of lung field; R06.09 Other forms of dyspnea; I77.82 Antineutrophilic cytoplasmic antibody [ANCA] vasculitis
CPT/HCPCS: 99214

== ENCOUNTER → 2023-03-30 09:42 | Outpatient (BNVA) | payer OTHER, SELFPAY | PROVIDERS: PCP Internal Medicine Geriatric Medicine; Visit Provider Hospitalist | DX: R40.0 Somnolence (principal); R91.8 Other nonspecific abnormal finding of lung field; R06.09 Other forms of dyspnea; I77.82 Antineutrophilic cytoplasmic antibody [ANCA] vasculitis | CPT/HCPCS: 99212 ==

== ENCOUNTER 2023-03-31 14:00 | Outpatient (AMB) | payer OTHER, SELFPAY ==
[2023-03-31 14:04] VITALS: BP 120/64; PULSE 74; TEMP 36.3; O2SAT 97; BMI 23.2
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
== END 2023-03-31 14:50 | disposition home or self-care (01) ==
PROVIDERS: PCP Internal Medicine Geriatric Medicine; Visit Provider Student in an Organized Health Care Education/Training Program
DX: I77.82 Antineutrophilic cytoplasmic antibody [ANCA] vasculitis (principal); R01.1 Cardiac murmur, unspecified; R32 Unspecified urinary incontinence; R76.0 Raised antibody titer; M54.6 Pain in thoracic spine
CPT/HCPCS: 99215

== ENCOUNTER → 2023-03-31 14:00 | Outpatient (BNVA) | payer OTHER, SELFPAY | PROVIDERS: PCP Internal Medicine Geriatric Medicine; Visit Provider Student in an Organized Health Care Education/Training Program | DX: I77.82 Antineutrophilic cytoplasmic antibody [ANCA] vasculitis (principal); R01.1 Cardiac murmur, unspecified; R32 Unspecified urinary incontinence; R76.0 Raised antibody titer; M54.6 Pain in thoracic spine | CPT/HCPCS: 99212 ==

== ENCOUNTER 2023-04-27 08:15 | Outpatient (REF) | payer OTHER, SELFPAY | END 2023-04-27 08:16 | disposition home or self-care (01) | LOC: HO.MDS 08:15 | PROVIDERS: Visit Provider Student in an Organized Health Care Education/Training Program | DX: I77.82 Antineutrophilic cytoplasmic antibody [ANCA] vasculitis (principal); G61.89 Other inflammatory polyneuropathies | CPT/HCPCS: 96365; 96366; 96375; J1200; J1569; J1720 ==

== ENCOUNTER 2023-04-29 08:06 | Outpatient (REF) | payer OTHER, SELFPAY | END 2023-04-29 08:07 | disposition home or self-care (01) | LOC: HO.MDS 08:06 | PROVIDERS: PCP Internal Medicine Geriatric Medicine; Visit Provider Student in an Organized Health Care Education/Training Program | DX: I77.82 Antineutrophilic cytoplasmic antibody [ANCA] vasculitis (principal); G61.89 Other inflammatory polyneuropathies | CPT/HCPCS: 96365; 96366; 96375; J1200; J1569; J1720 ==

== ENCOUNTER 2023-05-04 12:47 | Outpatient (REF) | payer OTHER, SELFPAY ==
[2023-05-05 07:53] LABS: Syphilis Screen Nonreactive (Nonreactive)
[2023-05-05 09:09] LABS: Lyme Abs Screen <0.90 index
== END 2023-05-04 12:48 | disposition home or self-care (01) ==
LOC: HO.LAB 12:47
PROVIDERS: PCP Internal Medicine Geriatric Medicine; Visit Provider Psychiatry & Neurology Neurology
DX: G93.40 Encephalopathy, unspecified (principal)
CPT/HCPCS: 36415; 86617; 86618; 86780

== ENCOUNTER 2023-05-24 07:52 | Outpatient (REF) | payer OTHER, SELFPAY | END 2023-05-24 07:53 | disposition home or self-care (01) | LOC: HO.MDS 07:52 | PROVIDERS: Visit Provider Student in an Organized Health Care Education/Training Program | DX: G61.89 Other inflammatory polyneuropathies (principal); I77.82 Antineutrophilic cytoplasmic antibody [ANCA] vasculitis | CPT/HCPCS: 96365; 96366; 96375; J1200; J1569; J1720; J2405 ==

== ENCOUNTER 2023-05-25 07:49 | Outpatient (REF) | payer OTHER, SELFPAY | END 2023-05-25 07:50 | disposition home or self-care (01) | LOC: HO.MDS 07:49 | PROVIDERS: Visit Provider Student in an Organized Health Care Education/Training Program | DX: I77.82 Antineutrophilic cytoplasmic antibody [ANCA] vasculitis (principal); G61.89 Other inflammatory polyneuropathies | CPT/HCPCS: 96365; 96366; J1569 ==

== ENCOUNTER 2023-05-26 09:02 | Outpatient (AMB) | payer OTHER, SELFPAY ==
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
== END 2023-05-26 10:14 | disposition home or self-care (01) ==
PROVIDERS: PCP Internal Medicine Geriatric Medicine; Visit Provider Urology
DX: R32 Unspecified urinary incontinence (principal)
CPT/HCPCS: 51701; 99204

== ENCOUNTER → 2023-05-26 09:02 | Outpatient (BNVA) | payer OTHER, SELFPAY | PROVIDERS: PCP Internal Medicine Geriatric Medicine; Visit Provider Urology | DX: R32 Unspecified urinary incontinence (principal) | CPT/HCPCS: 51701; 51798; 81003; 99202 ==

== ENCOUNTER 2023-05-27 08:54 | Outpatient (REF) | payer OTHER, SELFPAY ==
--- NOTE | ~2023-05-27 | CT_ITS ---
EXAMINATION: CT CHEST WITHOUT CONTRAST CLINICAL INFORMATION: Follow-up pulmonary nodules. COMPARISON: CT chest 06/11/2022. TECHNIQUE: Multidetector volumetric CT imaging of the chest was done. Axial MIP volume rendering provided. Sagittal and coronal reformatted images were obtained. This CT examination was performed using dose optimization techniques as appropriate, variously including the following: *Automated exposure control *Adjustment of mA and/or kV according to patient size (this includes techniques or standardized protocols for targeted exams where dose is matched to indication/reason for exam; i.e. extremities or head) *Use of iterative reconstruction technique DLP: 100 mGy-cm FINDINGS: LUNGS: New consolidation in the lingula with air bronchograms. Follow-up necessary. Bronchiolectasis, tree-in-bud nodularity seen in the right upper lobe, superior segment of the right lower lobe and in the right middle lobe. Findings are consistent with infectious/inflammatory bronchiolitis. MEDIASTINUM: No mediastinal adenopathy. CORONARY ARTERY CALCIFICATION: None visualized on this study. PLEURA: There is no pleural effusion. No pleural mass or thickening. AXILLA: No adenopathy. UPPER ABDOMEN: Unremarkable. OSSEOUS STRUCTURES: Degenerative changes in the spine. Flowing calcification of the anterior longitudinal ligament consistent with DISH. CT/CT chest wo IV con IMPRESSION: New consolidation in the lingula. Bronchiolectasis with tree-in-bud nodularity increased compared to prior consistent with infectious/inflammatory bronchiolitis or potentially related to vasculitis given the patient's history. Follow-up chest CT is recommended in 3 months. Fleischner guidelines do not apply.
== END 2023-05-27 08:55 | disposition home or self-care (01) ==
LOC: HO.CT 08:54
PROVIDERS: PCP Internal Medicine Geriatric Medicine; Visit Provider Hospitalist
DX: R91.8 Other nonspecific abnormal finding of lung field (principal)
CPT/HCPCS: 70450; 71250

== ENCOUNTER 2023-06-20 09:56 | Outpatient (AMB) | payer OTHER, SELFPAY ==
[2023-06-20 10:07] VITALS: BP 124/60; PULSE 70; O2SAT 99; BMI 22.3
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
== END 2023-06-20 11:04 | disposition home or self-care (01) ==
PROVIDERS: PCP Internal Medicine Geriatric Medicine; Visit Provider Hospitalist
DX: R40.0 Somnolence (principal); R91.8 Other nonspecific abnormal finding of lung field; R06.09 Other forms of dyspnea; I77.82 Antineutrophilic cytoplasmic antibody [ANCA] vasculitis; J47.9 Bronchiectasis, uncomplicated
CPT/HCPCS: 99214

== ENCOUNTER → 2023-06-20 09:56 | Outpatient (BNVA) | payer OTHER, SELFPAY | PROVIDERS: PCP Internal Medicine Geriatric Medicine; Visit Provider Hospitalist | DX: I77.82 Antineutrophilic cytoplasmic antibody [ANCA] vasculitis (principal); J47.9 Bronchiectasis, uncomplicated; R40.0 Somnolence; R91.8 Other nonspecific abnormal finding of lung field; R06.09 Other forms of dyspnea | CPT/HCPCS: 99212 ==

== ENCOUNTER 2023-06-28 07:52 | Outpatient (REF) | payer OTHER, SELFPAY | END 2023-06-28 07:53 | disposition home or self-care (01) | LOC: HO.MDS 07:52 | PROVIDERS: Visit Provider Student in an Organized Health Care Education/Training Program | DX: G61.89 Other inflammatory polyneuropathies (principal); I77.82 Antineutrophilic cytoplasmic antibody [ANCA] vasculitis | CPT/HCPCS: 96365; 96366; 96375; J1200; J1569; J2930 ==

== ENCOUNTER 2023-06-29 07:49 | Outpatient (REF) | payer OTHER, SELFPAY | END 2023-06-29 07:50 | disposition home or self-care (01) | LOC: HO.MDS 07:49 | PROVIDERS: Visit Provider Student in an Organized Health Care Education/Training Program | DX: G61.89 Other inflammatory polyneuropathies (principal); I77.82 Antineutrophilic cytoplasmic antibody [ANCA] vasculitis | CPT/HCPCS: 96365; 96366; 96375; J1200; J1569; J2930 ==

== ENCOUNTER 2023-07-07 09:57 | Outpatient (REF) | payer OTHER, SELFPAY | END 2023-07-07 09:58 | disposition home or self-care (01) | LOC: HO.RESP 09:57 | PROVIDERS: PCP Internal Medicine Geriatric Medicine; Visit Provider Hospitalist | DX: Z13.89 Encounter for screening for other disorder (principal) ==

== ENCOUNTER 2023-07-14 11:33 | Outpatient (REF) | payer OTHER, SELFPAY ==
[2023-07-14 11:58] LABS: MANUAL DIFF FLAG NO
[2023-07-14 12:26] LABS: Basophils Percent Auto 0.2 % (0-2); Eosinophils Percent Auto 0.5 % (0-4); Hematocrit 35.6 % (37.0-47.0); Hemoglobin 11.5 g/dl (12.0-16.0); Imm Gran Abs Auto 0.02 X10*3/uL (0.00-0.03); Imm Gran Pct Auto 0.2 % (0.0-0.4); Lymphocytes Absolute Auto 1.9 X10*3/uL (1.2-4.9); Lymphocytes Percent Auto 22.2 % (20-40); Mean Corpuscular HGB Conc 32.3 g/dl (31.0-35.0); Mean Corpuscular Hemoglobin 29.3 pg (27.0-33.0); Mean Corpuscular Volume 90.6 fL (80.0-98.0); Mean Platelet Volume 8.9 fL (9.4-12.3); Monocytes Absolute Auto 0.6 X10*3/uL (0.1-1.2); Monocytes Percent Auto 6.4 % (2-11); Neutrophils Absolute Auto 6.1 x10*3/uL (2.0-8.3); Neutrophils Percent Auto 70.5 % (45-73); Platelet Count 242 X10*3/uL (160-400); Red Blood Count 3.93 X10*6/uL (4.20-5.50); Red Cell Distribution Width 13.2 % (11.0-16.0); White Blood Count 8.7 X10*3/uL (4.8-10.8)
[2023-07-14 12:36] LABS: Rheumatoid Factor 44.1 IU/mL (<15.0)
[2023-07-14 12:40] LABS: Alanine Aminotransferase 15 U/L (0-31); Albumin Level 3.6 g/dL (3.5-5.0); Alkaline Phosphatase 73 U/L (39-117); Anion Gap 11 (12-20); Aspartate Amino Transferase 14 U/L (5-31); Bilirubin Total 0.3 mg/dL (0.0-1.0); Blood Urea Nitrogen 22 mg/dL (9-16); C Reactive Protein 0.12 mg/dL (< or = 0.50); Calcium 9.9 mg/dL (8.4-10.2); Carbon Dioxide 28 mmol/L (22-29); Chloride 105 mmol/L (96-108); Estimated Glomerular Filt Rate > 60; Glucose Random 118 mg/dL (60-115); Potassium 3.7 mmol/L (3.3-5.1); Sodium 140 mmol/L (135-145); Total Protein 8.6 g/dL (6.5-8.0)
[2023-07-14 13:14] LABS: Erythrocyte Sedimentation Rate 40 MM/HR (0-20)
[2023-07-19 12:29] LABS: IgA 527 mg/dL (70-320); IgG 2756 mg/dL (600-1540); IgM 50 mg/dL (50-300)
[2023-07-21 12:48] LABS: Myeloperoxidase Antibody 21.4 AI; Proteinase 3 PR3 Antibodies <1.0 AI
== END 2023-07-14 11:34 | disposition home or self-care (01) ==
LOC: HO.LAB 11:33
PROVIDERS: PCP Internal Medicine Geriatric Medicine; Visit Provider Student in an Organized Health Care Education/Training Program
DX: I77.82 Antineutrophilic cytoplasmic antibody [ANCA] vasculitis (principal)
CPT/HCPCS: 36415; 80053; 82784; 85025; 85652; 86021; 86140; 86334; 86431

== ENCOUNTER 2023-07-15 10:28 | Outpatient (AMB) | payer OTHER, SELFPAY ==
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
== END 2023-07-15 11:33 | disposition home or self-care (01) ==
PROVIDERS: PCP Internal Medicine Geriatric Medicine; Visit Provider Urology
DX: R32 Unspecified urinary incontinence (principal); N20.0 Calculus of kidney
CPT/HCPCS: 52000; 99214

== ENCOUNTER → 2023-07-15 10:28 | Outpatient (BNVA) | payer OTHER, SELFPAY | PROVIDERS: PCP Internal Medicine Geriatric Medicine; Visit Provider Urology | DX: N20.0 Calculus of kidney (principal); R32 Unspecified urinary incontinence | CPT/HCPCS: 52000; 81003; 99212 ==

== ENCOUNTER 2023-07-18 08:24 | Outpatient (REF) | payer OTHER, SELFPAY ==
--- NOTE | ~2023-07-18 | MR_ITS ---
EXAMINATION: MR BRAIN WITHOUT CONTRAST CLINICAL INFORMATION: Encephalopathy. COMPARISON: Head CT dated 05/27/2023. TECHNIQUE: Multiplanar, multisequence imaging of the brain was performed without contrast. FINDINGS: No diffusion abnormalities are identified to suggest an acute infarct. Mild generalized brain parenchymal volume loss noted with commensurate ex vacuo dilatation of the ventricles. No mass effect or midline shift is seen. Mild scattered T2 hyperintense signal changes noted in the cerebral white matter and in the nicole, suspected to be due to chronic microangiopathy. No extra-axial fluid collections are seen. The cerebellum is normal. The gradient refocused acquisition demonstrates no pathologic magnetic susceptibility artifact to indicate underlying acute or chronic blood products. The craniovertebral junction, marrow signal, and midline structures are normal. The major intracranial flow voids at the level of the [place] are preserved. The dural venous sinus flow voids are maintained. There is a mild amount of fluid in the dependent mastoid air cells bilaterally. The paranasal sinuses are well aerated. MR/MR head/brain wo con IMPRESSION: Generalized brain parenchymal volume loss and mild chronic white matter microangiopathy. Otherwise, no acute process.
== END 2023-07-18 08:25 | disposition home or self-care (01) ==
LOC: HO.MRI 08:24
PROVIDERS: PCP Internal Medicine Geriatric Medicine; Visit Provider Psychiatry & Neurology Neurology
DX: G93.40 Encephalopathy, unspecified (principal)
CPT/HCPCS: 70551

== ENCOUNTER 2023-07-20 10:30 | Outpatient (REF) | payer OTHER, SELFPAY ==
--- NOTE | ~2023-07-20 | US_ITS ---
EXAMINATION: US RETROPERITONEAL LIMITED (RENAL ONLY) CLINICAL INFORMATION: Unspecified urinary incontinence. COMPARISON: CT abdomen and pelvis 01/19/2023. MRI abdomen 12/11/2020. TECHNIQUE: Real-time imaging of the kidneys. FINDINGS: RIGHT KIDNEY: 10.0 x 4.7 x 5.8 cm (SAG x AP x TRV). The kidney is normal in size, contour, and echogenicity. Renal cortical thickness is normal. No focal parenchymal lesions or hydronephrosis. At the lower pole, a 4 mm nonobstructing calculus is seen. LEFT KIDNEY: 12.3 x 6.6 x 5.6 cm (SAG x AP x TRV). The kidney is normal in size, contour, and echogenicity. Renal cortical thickness is normal. No calculi or focal parenchymal lesions. No hydronephrosis. US/US renal BI IMPRESSION: A 4 mm nonobstructing right renal lower pole calculus is seen. No left renal calculus is seen. No renal mass or hydronephrosis is seen bilaterally.
== END 2023-07-20 10:31 | disposition home or self-care (01) ==
LOC: HO.US 10:30
PROVIDERS: PCP Internal Medicine Geriatric Medicine; Visit Provider Urology
DX: R32 Unspecified urinary incontinence (principal)
CPT/HCPCS: 76775

== ENCOUNTER 2023-07-22 10:54 | Outpatient (AMB) | payer OTHER, SELFPAY ==
[2023-07-22 10:55] VITALS: BP 108/62; PULSE 64; TEMP 35.9; O2SAT 98; BMI 22.9
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
== END 2023-07-22 11:43 | disposition home or self-care (01) ==
PROVIDERS: PCP Internal Medicine Geriatric Medicine; Visit Provider Student in an Organized Health Care Education/Training Program
DX: I77.82 Antineutrophilic cytoplasmic antibody [ANCA] vasculitis (principal); N39.46 Mixed incontinence; R76.0 Raised antibody titer
CPT/HCPCS: 99215

== ENCOUNTER → 2023-07-22 10:54 | Outpatient (BNVA) | payer OTHER, SELFPAY | PROVIDERS: PCP Internal Medicine Geriatric Medicine; Visit Provider Student in an Organized Health Care Education/Training Program | DX: I77.82 Antineutrophilic cytoplasmic antibody [ANCA] vasculitis (principal); N39.46 Mixed incontinence; R76.0 Raised antibody titer | CPT/HCPCS: 99212 ==

== ENCOUNTER 2023-07-25 08:04 | Outpatient (RCR) | payer OTHER, SELFPAY ==
[2023-07-25] VITALS (12 sets, daily range): BP systolic 94–128; BP diastolic 45–62; PULSE 63–78; RESP 16–18; TEMP 36.6; O2SAT 97–100; BMI 21.5
[2023-07-25] MEDS: Acetaminophen 325 MG TABLET 650 MG PO (08:31)
[2023-07-25] MEDS: Famotidine/PF 20 MG/2 ML VIAL IVPUSH (08:38)
[2023-07-25] MEDS: diphenhydrAMINE HCL 50 MG/ML VIAL IVPUSH (08:39)
[2023-07-25] MEDS: methylPREDNISolone Sod Succ 40 MG/ML VIAL 50 MG IVPUSH (08:40)
[2023-07-25] MEDS: Immun Glob G(IgG)/Gly/IGA Ov50 300 ML IV ×2 (08:50→11:34)
== END 2023-07-25 23:59 | disposition home or self-care (01) ==
LOC: HO.MDS 08:04
PROVIDERS: Visit Provider Student in an Organized Health Care Education/Training Program
DX: I77.82 Antineutrophilic cytoplasmic antibody [ANCA] vasculitis (principal); G61.89 Other inflammatory polyneuropathies
CPT/HCPCS: 96365; 96366; 96375; J1200; J1569; J2920

== ENCOUNTER 2023-07-27 07:53 | Outpatient (REF) | payer OTHER, SELFPAY ==
[2023-07-27] VITALS (7 sets, daily range): BP systolic 119–143; BP diastolic 51–83; PULSE 60–78; RESP 18; TEMP 36.3
[2023-07-27] MEDS: Acetaminophen 325 MG TABLET 650 MG PO (08:37)
[2023-07-27] MEDS: diphenhydrAMINE HCL 50 MG/ML VIAL IVPUSH (08:37)
[2023-07-27] MEDS: Famotidine/PF 20 MG/2 ML VIAL IVPUSH (08:38)
[2023-07-27] MEDS: methylPREDNISolone Sod Succ 125 MG/2 ML VIAL 50 MG IVPUSH (08:38)
[2023-07-27] MEDS: Immun Glob G(IgG)/Gly/IGA Ov50 300 ML IV ×2 (08:44→11:50)
== END 2023-07-27 07:54 | disposition home or self-care (01) ==
LOC: HO.MDS 07:53
PROVIDERS: Visit Provider Student in an Organized Health Care Education/Training Program
DX: I77.82 Antineutrophilic cytoplasmic antibody [ANCA] vasculitis (principal); G61.89 Other inflammatory polyneuropathies
CPT/HCPCS: 96365; 96366; 96375; J1200; J1569; J2930

== ENCOUNTER 2023-08-03 09:58 | Outpatient (REF) | payer OTHER, SELFPAY ==
--- NOTE | ~2023-08-03 | US_ITS ---
EXAMINATION: US PELVIS LIMITED (BLADDER) CLINICAL INFORMATION: Urinary incontinence. COMPARISON: Renal ultrasound 07/20/2023. CT abdomen and pelvis 01/19/2023. MR abdomen without and with contrast 12/11/2020. TECHNIQUE: Real-time imaging of the bladder. FINDINGS: BLADDER: Well distended and normal. Bilateral ureteral jets are demonstrated. Prevoid bladder volume is 242.5 mL. Postvoid bladder volume is 13.7 mL. US/US bladder IMPRESSION: Normal-appearing urinary bladder.
== END 2023-08-03 09:59 | disposition home or self-care (01) ==
LOC: HO.US 09:58
PROVIDERS: PCP Internal Medicine Geriatric Medicine; Visit Provider Urology
DX: R32 Unspecified urinary incontinence (principal)
CPT/HCPCS: 76857

== ENCOUNTER 2023-08-18 07:45 | Day surgery (SDC) | payer OTHER, SELFPAY ==
[2023-06-27 15:20] VITALS: BMI 22.3
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
[2023-08-18 08:36] VITALS: BMI 22.3
--- NOTE | 2023-08-18 08:51 | MHC.SHP ---
Pre-Procedural Eval Section A - 24 Hr Update-Section A only Date of Service: 08/18/23 The patient is an INPATIENT: No Changes since office visit: No Cold of Flu in the past 2 weeks, No New Medical Problems, No Changes in Medication and No Patient answered all questions The patient has been examined within 24 hours of the surgical procedure. The History & Physical has been completed within 30 days and I have reviewed it.: No Section B - Complete if H&P > 30 days Chief Complaint: Bronchiectasis, uncomplicated Details of Present Illness: She complains of a productive cough difficult to expectorate. Moderate severity. Sometimes she chokes on her secretions. Does have shortness breath. She has other complaints such as neuropathy pain and also having some issues with alopecia. She is concerned with the side effects of medications. We did review her CT scan of the chest. It appears to show some areas of bronchiectasis primarily in the right middle lobe in the lingula along with tree-in-bud in pulmonary nodules in a bronchovascular distribution. Very suspicious for smoldering infection or inflammation. She is considered immunocompromised due to her medications and therefore risk for these conditions. Relevant Family History (Specify if Yes): No Relevant Social History: None Present Medications: see Short Stay Collaborative assessment Medical History: Significant History History of Previous Operations: Relevant previous surgery/procedure and date(s) Allergies: Allergies Allergy/AdvReac Type Severity Reaction Status Date / Time oxycodone [From Percocet] Allergy Severe throat Verified 07/22/23 11:00 swelling Seasonal Allergies Allergy Unknown Unknown Verified 07/22/23 11:00 Review of Systems Sugical H&P ROS: Negative: Constitution, Cardiovascular, Neurological, Psychiatric, Hem-Onc, Allergic/Immunologic, Gastrointestinal, Genitourinary and Musculoskeletal and Yes, Specify: Respiratory (cough) Exam Surgical H&P Exam: Normal: HEENT, Normal: Heart, Normal: Lungs, Normal: Extremities, Normal: Abdomen, Normal: Skin and Normal: Neurological Plan Diagnosis/Plan: Unchanged (Bronchoscopy) I have reviewed the history and physical and performed a pertinent physical examination on my patient. No changes have occurred unless specified. Time Spent With Patient Time: Total time managing care of this patient today ____ minutes.
[2023-08-18 08:56] VITALS: BP 121/64; PULSE 73; RESP 16; TEMP 36.4; O2SAT 98
[2023-08-18] MEDS: Lactated Ringers 1,000 ML 100 ML IVCONT (08:57)
[2023-08-18 09:17] LABS: Glucose, Whole Blood 87 mg/dL (60-115)
--- NOTE | 2023-08-18 09:46 | P.BOP_ITS ---
Brief Operative Note Date of Service: 08/18/23 Pre-op diagnosis: pneumonia, pulmonary nodules Post-op diagnosis: same Procedure: Bronchoscopy with washings and brushings Surgeon: Nikolai Ortez MD Anesthesia: GETA Was an Real Estate Broker used for this Procedure?: No Estimated blood loss (mL): 0 Pathology: none sent Condition: stable Disposition: same day
[2023-08-18 09:49] VITALS: BP 129/61; PULSE 68; RESP 16; TEMP 36.6; O2SAT 100
[2023-08-18 09:54] VITALS: BP 122/58; PULSE 67; RESP 16; O2SAT 100
[2023-08-18 09:59] VITALS: BP 122/57; PULSE 67; RESP 16; O2SAT 100
[2023-08-18 10:04] VITALS: BP 121/65; PULSE 64; RESP 17; O2SAT 99
[2023-08-18 10:19] VITALS: BP 128/57; PULSE 71; RESP 16; TEMP 36.6; O2SAT 99
--- NOTE | 2023-08-18 11:33 | OP_ITS ---
DATE OF SERVICE: 08/18/2023 SURGEON: Nikolai Ortez MD PREOPERATIVE DIAGNOSIS: POSTOPERATIVE DIAGNOSIS: PROCEDURE PERFORMED: Bronchoscopy with washings and brushings. ESTIMATED BLOOD LOSS: COMPLICATIONS: None. ANESTHESIA: General endotracheal anesthesia. Concern was obtained from the patient. ASSISTANTS: SPECIMENS: ASA CLASSIFICATION: 3. PREOPERATIVE DIAGNOSES: Pneumonia and pulmonary nodules. POSTOPERATIVE DIAGNOSES: Pneumonia and pulmonary nodules. PROCEDURE IN DETAIL: After the patient was adequately sedated, the flexible digital bronchoscope was inserted via the ET to the level of the distal trachea, main mamadou. Appeared to be intact, sharp. After that, the bronchoscope was then navigated through the entire tracheobronchial tree. That was evaluated up to the subsegmental level. No endobronchial lesions or masses noted. No significant amount of secretions, just mucoid secretions scattered. The bronchoscope was navigated to left upper lobe lingula area where a cytologic brush and also microscopic brush were introduced into the ligula and some specimens. Bronchial washings were also collected bilaterally. The patient did have significant amount of mucous plugs primarily from the right middle lobe where she also had some disease noted on her CAT scan. The washings were also sent for microbiology and cytology. The bronchoscope was then removed. The total endoscopic time was approximately 12 minutes. The patient tolerated the procedure well. Vital signs were stable, and no evidence of any bleeding. AREA DIRECTOR: None. MD PAULINO Bingham/MARY / [phone]
== END 2023-08-18 11:00 | disposition home or self-care (01) ==
PROVIDERS: PCP Internal Medicine Geriatric Medicine; Visit Provider Hospitalist
PROC: 0BJ08ZZ Inspection of Tracheobronchial Tree, Via Natural or Artificial Opening Endoscopic (ICD-10-PCS; CPT 31622; principal; 2023-08-18 09:30)
DX: J47.9 Bronchiectasis, uncomplicated (principal); J15.211 Pneumonia due to Methicillin susceptible Staphylococcus aureus; I77.82 Antineutrophilic cytoplasmic antibody [ANCA] vasculitis; E27.40 Unspecified adrenocortical insufficiency; E11.9 Type 2 diabetes mellitus without complications; J45.909 Unspecified asthma, uncomplicated; R91.8 Other nonspecific abnormal finding of lung field; R06.09 Other forms of dyspnea; R40.0 Somnolence; R63.4 Abnormal weight loss; Z68.22 Body mass index [BMI] 22.0-22.9, adult; F43.10 Post-traumatic stress disorder, unspecified; Z62.819 Personal history of unspecified abuse in childhood; Z88.5 Allergy status to narcotic agent; Z87.891 Personal history of nicotine dependence; Z90.49 Acquired absence of other specified parts of digestive tract; Z98.890 Other specified postprocedural states
CPT/HCPCS: 31623; 82947; 87070; 87077; 87102; 87116; 87186; 87205; 87206; 88112; 88305; J0171; J1100; J2405; J2704

== ENCOUNTER → 2023-08-18 07:45 | Outpatient (BNV) | payer OTHER, SELFPAY | PROVIDERS: PCP Internal Medicine Geriatric Medicine; Visit Provider Hospitalist | DX: J18.9 Pneumonia, unspecified organism (principal); R91.8 Other nonspecific abnormal finding of lung field; J47.9 Bronchiectasis, uncomplicated | CPT/HCPCS: 31623 ==

== ENCOUNTER 2023-08-22 08:58 | Outpatient (AMB) | payer OTHER, SELFPAY ==
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
[2023-08-22 09:05] VITALS: BP 148/65; PULSE 77; O2SAT 99; BMI 22.2
== END 2023-08-22 09:28 | disposition home or self-care (01) ==
PROVIDERS: PCP Internal Medicine Geriatric Medicine; Visit Provider Nurse Practitioner Family
DX: R10.13 Epigastric pain (principal); K58.1 Irritable bowel syndrome with constipation; R14.0 Abdominal distension (gaseous); K59.04 Chronic idiopathic constipation
CPT/HCPCS: 99214

== ENCOUNTER → 2023-08-22 08:58 | Outpatient (BNVA) | payer OTHER, SELFPAY | PROVIDERS: PCP Internal Medicine Geriatric Medicine; Visit Provider Nurse Practitioner Family | DX: K58.1 Irritable bowel syndrome with constipation (principal); K59.04 Chronic idiopathic constipation; R10.13 Epigastric pain; R14.0 Abdominal distension (gaseous) | CPT/HCPCS: 99212 ==

== ENCOUNTER 2023-09-16 09:57 | Outpatient (AMB) | payer OTHER, SELFPAY ==
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
== END 2023-09-16 11:31 | disposition home or self-care (01) ==
PROVIDERS: PCP Internal Medicine Geriatric Medicine; Visit Provider Urology
DX: N39.46 Mixed incontinence (principal); N20.0 Calculus of kidney; N32.81 Overactive bladder; Z13.9 Encounter for screening, unspecified
CPT/HCPCS: 99214; G2211

== ENCOUNTER → 2023-09-16 09:57 | Outpatient (BNVA) | payer OTHER, SELFPAY | PROVIDERS: PCP Internal Medicine Geriatric Medicine; Visit Provider Urology | DX: N39.46 Mixed incontinence (principal); N32.81 Overactive bladder; N20.0 Calculus of kidney; N39.8 Other specified disorders of urinary system | CPT/HCPCS: 51798; 81003; 99212 ==

== ENCOUNTER 2023-10-27 09:50 | Outpatient (AMB) | payer OTHER, SELFPAY ==
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
[2023-10-27 09:58] VITALS: BP 122/68; PULSE 61; O2SAT 93; BMI 21.0
== END 2023-10-27 10:21 | disposition home or self-care (01) ==
PROVIDERS: PCP Internal Medicine Geriatric Medicine; Visit Provider Student in an Organized Health Care Education/Training Program
DX: I77.82 Antineutrophilic cytoplasmic antibody [ANCA] vasculitis (principal); R76.0 Raised antibody titer
CPT/HCPCS: 99214

== ENCOUNTER → 2023-10-27 09:50 | Outpatient (BNVA) | payer OTHER, SELFPAY | PROVIDERS: PCP Internal Medicine Geriatric Medicine; Visit Provider Student in an Organized Health Care Education/Training Program | DX: I77.82 Antineutrophilic cytoplasmic antibody [ANCA] vasculitis (principal); R76.0 Raised antibody titer | CPT/HCPCS: 99212 ==

== ENCOUNTER 2023-11-07 11:54 | Outpatient (AMB) | payer OTHER, SELFPAY ==
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
[2023-11-07 12:13] VITALS: BP 132/62; PULSE 56; O2SAT 98; BMI 21.0
== END 2023-11-07 12:41 | disposition home or self-care (01) ==
PROVIDERS: PCP Internal Medicine Geriatric Medicine; Visit Provider Nurse Practitioner Family
DX: K58.2 Mixed irritable bowel syndrome (principal); R14.0 Abdominal distension (gaseous)
CPT/HCPCS: 99213

== ENCOUNTER → 2023-11-07 11:54 | Outpatient (BNVA) | payer OTHER, SELFPAY | PROVIDERS: PCP Internal Medicine Geriatric Medicine; Visit Provider Nurse Practitioner Family | DX: N32.81 Overactive bladder (principal); K21.9 Gastro-esophageal reflux disease without esophagitis; K59.04 Chronic idiopathic constipation; R10.13 Epigastric pain; K58.2 Mixed irritable bowel syndrome; K59.1 Functional diarrhea | CPT/HCPCS: 51700; 51701; 52287; 81003; 99212; J0585; J0665 ==

== ENCOUNTER 2023-11-07 13:12 | Outpatient (AMB) | payer OTHER, SELFPAY ==
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
== END 2023-11-07 15:21 | disposition home or self-care (01) ==
PROVIDERS: PCP Internal Medicine Geriatric Medicine; Visit Provider Urology
DX: Z13.9 Encounter for screening, unspecified (principal); N32.81 Overactive bladder
CPT/HCPCS: 52287

== ENCOUNTER 2023-12-26 09:31 | Outpatient (AMB) | payer OTHER, SELFPAY ==
[2023-12-26 09:40] VITALS: BP 128/70; PULSE 63; O2SAT 98; BMI 20.8
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
== END 2023-12-26 10:22 | disposition home or self-care (01) ==
PROVIDERS: PCP Internal Medicine Geriatric Medicine; Visit Provider Hospitalist
DX: R91.8 Other nonspecific abnormal finding of lung field (principal); R06.09 Other forms of dyspnea; I77.82 Antineutrophilic cytoplasmic antibody [ANCA] vasculitis; J47.9 Bronchiectasis, uncomplicated
CPT/HCPCS: 99215

== ENCOUNTER → 2023-12-26 09:31 | Outpatient (BNVA) | payer OTHER, SELFPAY | PROVIDERS: PCP Internal Medicine Geriatric Medicine; Visit Provider Hospitalist | DX: R91.8 Other nonspecific abnormal finding of lung field (principal); R06.09 Other forms of dyspnea; I77.82 Antineutrophilic cytoplasmic antibody [ANCA] vasculitis; J47.9 Bronchiectasis, uncomplicated | CPT/HCPCS: 99212 ==

== ENCOUNTER 2024-01-10 09:06 | Outpatient (REF) | payer OTHER, SELFPAY ==
--- NOTE | 2024-01-10 09:20 | ECG_ITS ---
Test Reason : COPD Blood Pressure : / mmHG Vent. Rate : 050 BPM Atrial Rate : 050 BPM P-R Int : 176 ms QRS Dur : 074 ms QT Int : 446 ms P-R-T Axes : 084 023 058 degrees QTc Int : 406 ms Sinus bradycardia Otherwise normal ECG When compared with ECG of 06-MAY-2022 16:42, Vent. rate has decreased BY 30 BPM Referred By: Nikolai Ortez Electronically Signed By:STEFANIE SHARMA
[2024-01-10 09:38] LABS: MANUAL DIFF FLAG NO
[2024-01-10 09:43] LABS: Basophils Percent Auto 0.2 % (0-2); Eosinophils Percent Auto 0.2 % (0-4); Hematocrit 33.5 % (37.0-47.0); Hemoglobin 10.9 g/dl (12.0-16.0); Imm Gran Abs Auto 0.01 X10*3/uL (0.00-0.03); Imm Gran Pct Auto 0.2 % (0.0-0.4); Lymphocytes Absolute Auto 1.8 X10*3/uL (1.2-4.9); Lymphocytes Percent Auto 43.8 % (20-40); Mean Corpuscular HGB Conc 32.5 g/dl (31.0-35.0); Mean Corpuscular Hemoglobin 30.5 pg (27.0-33.0); Mean Corpuscular Volume 93.8 fL (80.0-98.0); Mean Platelet Volume 9.1 fL (9.4-12.3); Monocytes Absolute Auto 0.5 X10*3/uL (0.1-1.2); Monocytes Percent Auto 11.3 % (2-11); Neutrophils Absolute Auto 1.8 x10*3/uL (2.0-8.3); Neutrophils Percent Auto 44.3 % (45-73); Platelet Count 185 X10*3/uL (160-400); Red Blood Count 3.57 X10*6/uL (4.20-5.50); Red Cell Distribution Width 13.3 % (11.0-16.0); White Blood Count 4.2 X10*3/uL (4.8-10.8)
[2024-01-10 10:20] LABS: VBG pCO2 51 mmHg; VBG pH 7.31 (7.32-7.43); Venous Blood Gas Refer to POC result
[2024-01-10 10:21] LABS: VBG Base Excess -0.3 mmol/L; VBG HCO3 26 mmol/L (22-26); VBG O2 % Saturation < 30.0 %; VBG pO2 15 mmHg
[2024-01-10 10:38] LABS: Anion Gap 9 (12-20); Blood Urea Nitrogen 13 mg/dL (9-16); Calcium 9.4 mg/dL (8.4-10.2); Carbon Dioxide 26 mmol/L (22-29); Chloride 106 mmol/L (96-108); Estimated Glomerular Filt Rate > 60; Glucose Random 65 mg/dL (60-115); Potassium 4.4 mmol/L (3.3-5.1); Sodium 137 mmol/L (135-145)
[2024-01-13 17:12] LABS: TS Negative Control Passed; TS Panel A 0; TS Panel B 0; TS Positive Control Passed; TSpotTB Negative (Negative)
== END 2024-01-10 09:07 | disposition home or self-care (01) ==
LOC: HO.LAB 09:06
PROVIDERS: Absent Provider Student in an Organized Health Care Education/Training Program; PCP Internal Medicine Geriatric Medicine; Visit Provider Hospitalist
DX: Z11.1 Encounter for screening for respiratory tuberculosis (principal); R91.8 Other nonspecific abnormal finding of lung field; R06.09 Other forms of dyspnea; J47.9 Bronchiectasis, uncomplicated; J44.9 Chronic obstructive pulmonary disease, unspecified
CPT/HCPCS: 36415; 80048; 82803; 85025; 86481; 93005

== ENCOUNTER 2024-01-19 09:50 | Outpatient (AMB) | payer OTHER, SELFPAY ==
[2024-01-19 10:21] VITALS: BP 116/60; PULSE 60; O2SAT 98; BMI 21.4
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
== END 2024-01-19 10:49 | disposition home or self-care (01) ==
PROVIDERS: PCP Internal Medicine Geriatric Medicine; Visit Provider Hospitalist
DX: R91.8 Other nonspecific abnormal finding of lung field (principal); R06.09 Other forms of dyspnea; I77.82 Antineutrophilic cytoplasmic antibody [ANCA] vasculitis; J47.9 Bronchiectasis, uncomplicated; R07.81 Pleurodynia
CPT/HCPCS: 99214; G2211

== ENCOUNTER 2024-01-19 09:50 | Outpatient (REF) | payer OTHER, SELFPAY ==
[2024-01-19 11:50] LABS: MANUAL DIFF FLAG NO
[2024-01-19 11:58] LABS: Basophils Percent Auto 0.4 % (0-2); Eosinophils Percent Auto 0.2 % (0-4); Hematocrit 34.9 % (37.0-47.0); Hemoglobin 11.6 g/dl (12.0-16.0); Imm Gran Abs Auto 0.01 X10*3/uL (0.00-0.03); Imm Gran Pct Auto 0.2 % (0.0-0.4); Mean Corpuscular HGB Conc 33.2 g/dl (31.0-35.0); Mean Corpuscular Hemoglobin 30.5 pg (27.0-33.0); Mean Corpuscular Volume 91.8 fL (80.0-98.0); Monocytes Absolute Auto 0.5 X10*3/uL (0.1-1.2); Monocytes Percent Auto 9.6 % (2-11); Neutrophils Absolute Auto 2.5 x10*3/uL (2.0-8.3); Neutrophils Percent Auto 49.6 % (45-73); Platelet Count 200 X10*3/uL (160-400); Red Cell Distribution Width 13.2 % (11.0-16.0)
[2024-01-19 12:01] LABS: Venous Blood Gas Refer to POC result
[2024-01-19 12:02] LABS: VBG pCO2 51 mmHg; VBG pH 7.35 (7.32-7.43); VBG pO2 29 mmHg
[2024-01-19 12:03] LABS: VBG Base Excess 2.5 mmol/L; VBG HCO3 28 mmol/L (22-26)
[2024-01-19 12:28] LABS: Alanine Aminotransferase 6 U/L (0-31); Albumin Level 3.8 g/dL (3.5-5.0); Alkaline Phosphatase 81 U/L (39-117); Anion Gap 8 (12-20); Aspartate Amino Transferase 13 U/L (5-31); Bilirubin Direct < 0.2 mg/dL (0.0-0.5); Bilirubin Total 0.2 mg/dL (0.0-1.0); Blood Urea Nitrogen 14 mg/dL (9-16); C Reactive Protein 0.19 mg/dL (< or = 0.50); Calcium 10.2 mg/dL (8.4-10.2); Carbon Dioxide 28 mmol/L (22-29); Chloride 105 mmol/L (96-108); Estimated Glomerular Filt Rate > 60; Glucose Random 98 mg/dL (60-115); Sodium 137 mmol/L (135-145); Total Protein 8.4 g/dL (6.5-8.0)
[2024-01-19 12:36] LABS: Erythrocyte Sedimentation Rate 38 MM/HR (0-20)
[2024-01-19 13:09] LABS: D Dimer High Sensitivity 401 NG/ML
== END 2024-01-19 09:51 | disposition home or self-care (01) ==
LOC: HO.LAB 09:50
PROVIDERS: PCP Internal Medicine Geriatric Medicine; Visit Provider Hospitalist
DX: J47.9 Bronchiectasis, uncomplicated (principal); R91.8 Other nonspecific abnormal finding of lung field; R07.81 Pleurodynia; R06.09 Other forms of dyspnea; R79.89 Other specified abnormal findings of blood chemistry; I77.82 Antineutrophilic cytoplasmic antibody [ANCA] vasculitis
CPT/HCPCS: 36415; 80053; 80076; 82248; 82803; 85025; 85379; 85652; 86140; 99212

== ENCOUNTER 2024-01-25 14:45 | Outpatient (REF) | payer OTHER, SELFPAY ==
--- NOTE | ~2024-01-25 | CT_ITS ---
EXAMINATION: CT ANGIOGRAM CHEST CLINICAL INFORMATION: Abnormal blood chemistry COMPARISON: Chest CT May 27, 2023 TECHNIQUE: Multiple axial images were obtained through the chest after the administration of 65 mL of Omnipaque 350 intravenous contrast. Reformatted coronal, sagittal and medic images were provided for interpretation. This CT examination was performed using dose optimization techniques as appropriate, variously including the following: *Automated exposure control *Adjustment of mA and/or kV according to patient size (this includes techniques or standardized protocols for targeted exams where dose is matched to indication/reason for exam; i.e. extremities or head) *Use of iterative reconstruction technique DLP: 106 mGy-cm FINDINGS: Central airways are patent. Lungs are well aerated. There is mild biapical architectural distortion/scarring. Interval development of patchy bilateral predominantly subpleural nodular areas of airspace disease, nonspecific. There remains some minimal right middle lobe atelectasis versus airspace disease. Persistent but improving lingular consolidative airspace disease. There is no gross pleural effusion. No pneumothorax. Evaluation for pulmonary nodules is suboptimal given background of airspace disease, for example a 6 mm pleural-based nodular density of the lingula may represent pulmonary nodule or nodular area of airspace disease (image 36/60, series 6). The heart is normal in size. There is no pericardial effusion. No appreciable coronary artery calcifications. Normal caliber thoracic aorta. No pulmonary arterial filling defect to suggest pulmonary embolus. Small partially calcified left thyroid nodule again demonstrated. No gross mediastinal or hilar lymphadenopathy. No pathologically enlarged axillary lymph nodes. Visualized portions of the upper abdomen are grossly unremarkable. Diffuse osteopenia. Moderate degenerative changes of the spine. CT/CT angio chest PE protocol IMPRESSION: 1. No pulmonary arterial filling defect to suggest pulmonary embolus. 2. Interval development of patchy bilateral predominantly subpleural nodular areas of airspace disease. Findings are nonspecific but most suggestive of an infectious or inflammatory process. 3. Evaluation for pulmonary nodules is suboptimal given background of airspace disease, for example a 6 mm pleural-based nodular density of the lingula may represent pulmonary nodule or nodular area of airspace disease. Attention on follow-up imaging recommended. Fleischner guidelines were followed. Electronically signed by: Robbi Mcdonnell MD 02/15/2024 11:24 AM EDT
[2024-01-25] MEDS: iohexoL 350 MG/ML 100 ML INFUS..BTL IV (15:56)
== END 2024-01-25 14:46 | disposition home or self-care (01) ==
LOC: HO.CT 14:45
PROVIDERS: PCP Internal Medicine Geriatric Medicine; Visit Provider Hospitalist
DX: R79.89 Other specified abnormal findings of blood chemistry (principal)
CPT/HCPCS: 71275; Q9967

== ENCOUNTER → 2024-01-27 08:56 | Outpatient (REF) | payer OTHER, SELFPAY ==
--- NOTE | 2024-01-27 08:59 | CA_ITS ---
Transthoracic Echocardiogram Patient (Last, First, Middle): Daphney Mar, Gender: Female Date of : 1955 Age: 68 Procedure Date: 01/27/2024 Procedure Type: Transthoracic Echocardiogram Location: OP Height: 157.48 cm Weight: 52.62 kg BSA: 1.52 m2 Heart Rate: bpm BP: 118 / 60 mmHg Environmental Research Scientist: Referring MD: Nikolai Ortez MD Symptoms: I27.20 - Pulmonary hypertension, unspecified Study Quality: Good ECG Rhythm: Sinus Conclusions: - The left ventricular systolic function is normal. The calculated ejection fraction is 67% by biplane method. - There is mild to moderate aortic valve regurgitation. - There is no evidence of pulmonary hypertension. Findings Left Ventricle Normal left ventricular cavity size. There is normal left ventricular wall thickness. The left ventricular systolic function is normal. The calculated ejection fraction is 67% by biplane method. There is no evidence of regional wall motion abnormalities. Diastolic function is normal for age. Right Ventricle Normal right ventricular cavity size and systolic function. Atria The left atrium is mildly dilated. The right atrium is moderately dilated. Aortic Valve There is a normal trileaflet aortic valve. There is mild calcification of the aortic valve. There is no aortic valve stenosis. There is mild to moderate aortic valve regurgitation. Mitral Valve The mitral valve appears normal. There is no mitral valve regurgitation. There is no mitral valve stenosis. Pulmonic Valve There is trace pulmonic valve regurgitation. Tricuspid Valve Normal tricuspid valve structure. There is mild tricuspid valve regurgitation. There is no evidence of pulmonary hypertension. Great Vessels The asc aorta is normal in size. Venous The inferior vena cava is normal in size and collapses less than 50% with inspiration. Pericardium/Pleural There is no evidence of pericardial effusion. Prior Study Comparison No significant change compared to prior study dated: 02/18/2023. Measurements 2D Linear Measurements IVSd: 0.81 0.6-0.9/0.6-1.0 cm LVIDd: 4.37 3.9-5.3/4.2-5.9 cm LVIDd Index: 2.88 2.4-3.2/2.2-3.1 cm/m2 LVIDs: 2.48 2.0-3.6 cm LVPWd: 0.78 0.7-1.1 cm Ao Root: 3.10 2.1-3.5 cm LA Diam: 3.30 2.7-3.8/3.0-4.0 cm LAIDs Index: 2.17 1.5-2.3 cm/m2 LV Mass: 133.83 67-162/88-224 g LV Mass Index: 88.05 43-95/49-115 g/m2 LVOT Diam: 2.10 3.0+(-)1.3 cm 2D Systolic Function EF 4C: 62.80 >55% EF 2C: 68.30 >55% EF BiP: 66.50 >55% Mitral Valve MV Pk E: 0.91 MV PK A: 0.80 MV Decel Time: 142.00 E/A: 1.10 E'Lateral: 9.36 E'Medial: 7.40 E/E' Med: 12.30 E/E' Lat: 9.70 PHT: 41.00 MVA PHT: 5.37 Decel [place]: 6.42 Aortic Valve AoV Pk David: 2.00 AoV Mn David: 1.28 AoV VTI: 0.48 AoV Pk Grad: 16.00 Aov Mn Grad: 8.00 REMBERTO Cont.VTI: 1.98 AI Pk David: 4.40 AI VTI: 2.53 AI [place]: 2.94 LVOT LVOT Pk David: 1.17 LVOT Mn David: 0.72 LVOT VTI: 0.27 LVOT Pk Grad: 5.00 LVOT Mn Grad: 3.00 LVOT Diam: 2.10 LVOT Area: 3.46 Diastolic Function MV Pk E: 0.91 MV Pk A: 0.80 E/A: 1.10 E'Medial: 7.40 E/E' Med: 12.30 E' Laterial: 9.36 E/E' Lat: 9.70 Right Ventricle TAPSE (mm): 35.00 Tricuspid Valve TR Pk David: 2.37 TR Pk Grad: 22.00 RA Press: 3.00 Great Vessels Aorta Ao Root-2D: 3.10 2.0-3.7 cm Ao Asc: 3.30 2.1-3.4 cm Pulmonary Valve PV Pk David: 1.18 Peak PV Grad: 6.00 Updated in Other Vendor System with Status of Final Brian Arrington MD electronically signed on 01/28/2024 2:43:38 PM with status of Final
== END ==
LOC: HO.CARD 08:56
PROVIDERS: PCP Internal Medicine Geriatric Medicine; Visit Provider Hospitalist
DX: I27.20 Pulmonary hypertension, unspecified (principal); R91.8 Other nonspecific abnormal finding of lung field; R06.09 Other forms of dyspnea; J47.9 Bronchiectasis, uncomplicated
CPT/HCPCS: 93306

== ENCOUNTER → 2024-01-27 08:59 | Outpatient (BNV) | payer OTHER, SELFPAY | PROVIDERS: PCP Internal Medicine Geriatric Medicine; Visit Provider Internal Medicine | DX: I35.1 Nonrheumatic aortic (valve) insufficiency (principal); I36.1 Nonrheumatic tricuspid (valve) insufficiency | CPT/HCPCS: 93306 ==

== ENCOUNTER 2024-01-31 10:01 | Outpatient (AMB) | payer OTHER, SELFPAY ==
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
[2024-01-31 10:11] VITALS: BP 122/62; PULSE 56; RESP 18; O2SAT 98; BMI 21.4
== END 2024-01-31 10:58 | disposition home or self-care (01) ==
PROVIDERS: PCP Internal Medicine Geriatric Medicine; Visit Provider Student in an Organized Health Care Education/Training Program
DX: I77.82 Antineutrophilic cytoplasmic antibody [ANCA] vasculitis (principal); R76.0 Raised antibody titer; M79.7 Fibromyalgia
CPT/HCPCS: 99215; G2211

== ENCOUNTER → 2024-01-31 10:01 | Outpatient (BNVA) | payer OTHER, SELFPAY | PROVIDERS: PCP Internal Medicine Geriatric Medicine; Visit Provider Student in an Organized Health Care Education/Training Program | DX: I77.82 Antineutrophilic cytoplasmic antibody [ANCA] vasculitis (principal); M79.7 Fibromyalgia; R76.0 Raised antibody titer | CPT/HCPCS: 99212 ==

== ENCOUNTER 2024-02-14 10:13 | Outpatient (AMB) | payer OTHER, SELFPAY ==
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
[2024-02-14 10:18] VITALS: BP 134/60; PULSE 72; O2SAT 99; BMI 22.1
== END 2024-02-14 11:05 | disposition home or self-care (01) ==
PROVIDERS: PCP Internal Medicine Geriatric Medicine; Visit Provider Nurse Practitioner Family
DX: R10.13 Epigastric pain (principal); K58.2 Mixed irritable bowel syndrome; R14.0 Abdominal distension (gaseous); K59.04 Chronic idiopathic constipation; K59.1 Functional diarrhea
CPT/HCPCS: 99214

== ENCOUNTER → 2024-02-14 10:13 | Outpatient (BNVA) | payer OTHER, SELFPAY | PROVIDERS: PCP Internal Medicine Geriatric Medicine; Visit Provider Nurse Practitioner Family | DX: K58.2 Mixed irritable bowel syndrome (principal); K59.04 Chronic idiopathic constipation; K59.1 Functional diarrhea; R10.13 Epigastric pain; R14.0 Abdominal distension (gaseous); Z79.899 Other long term (current) drug therapy | CPT/HCPCS: 99212 ==

== ENCOUNTER 2024-02-16 09:32 | Outpatient (AMB) | payer OTHER, SELFPAY ==
[2024-02-16 09:53] VITALS: BP 102/42; PULSE 71; O2SAT 98; BMI 22.1
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
== END 2024-02-16 10:25 | disposition home or self-care (01) ==
PROVIDERS: PCP Internal Medicine Geriatric Medicine; Visit Provider Hospitalist
DX: R91.8 Other nonspecific abnormal finding of lung field (principal); R06.09 Other forms of dyspnea; I77.82 Antineutrophilic cytoplasmic antibody [ANCA] vasculitis; J47.9 Bronchiectasis, uncomplicated; R07.81 Pleurodynia
CPT/HCPCS: 99215; G2211

== ENCOUNTER → 2024-02-16 09:32 | Outpatient (BNVA) | payer OTHER, SELFPAY | PROVIDERS: PCP Internal Medicine Geriatric Medicine; Visit Provider Hospitalist | DX: J47.9 Bronchiectasis, uncomplicated (principal); R91.8 Other nonspecific abnormal finding of lung field; R06.09 Other forms of dyspnea; R07.81 Pleurodynia; I77.82 Antineutrophilic cytoplasmic antibody [ANCA] vasculitis; R50.9 Fever, unspecified | CPT/HCPCS: 99212 ==

== ENCOUNTER 2024-03-05 09:55 | Outpatient (REF) | payer OTHER, SELFPAY ==
[2024-03-05 10:41] LABS: MANUAL DIFF FLAG NO
[2024-03-05 11:01] LABS: Basophils Percent Auto 0.5 % (0-2); Eosinophils Absolute Auto 0.1 X10*3/uL (0.0-0.4); Eosinophils Percent Auto 2.6 % (0-4); Hematocrit 38.2 % (37.0-47.0); Hemoglobin 12.5 g/dl (12.0-16.0); Imm Gran Abs Auto 0.01 X10*3/uL (0.00-0.03); Imm Gran Pct Auto 0.2 % (0.0-0.4); Lymphocytes Absolute Auto 1.8 X10*3/uL (1.2-4.9); Lymphocytes Percent Auto 43.1 % (20-40); Mean Corpuscular HGB Conc 32.7 g/dl (31.0-35.0); Mean Corpuscular Volume 91.8 fL (80.0-98.0); Mean Platelet Volume 9.1 fL (9.4-12.3); Monocytes Absolute Auto 0.4 X10*3/uL (0.1-1.2); Monocytes Percent Auto 8.7 % (2-11); Neutrophils Absolute Auto 1.9 x10*3/uL (2.0-8.3); Neutrophils Percent Auto 44.9 % (45-73); Platelet Count 247 X10*3/uL (160-400); Red Blood Count 4.16 X10*6/uL (4.20-5.50); Red Cell Distribution Width 13.4 % (11.0-16.0); White Blood Count 4.3 X10*3/uL (4.8-10.8)
[2024-03-05 11:28] LABS: Alanine Aminotransferase 8 U/L (0-31); Albumin Level 4.1 g/dL (3.5-5.0); Alkaline Phosphatase 99 U/L (39-117); Anion Gap 12 (12-20); Aspartate Amino Transferase 15 U/L (5-31); Bilirubin Direct < 0.2 mg/dL (0.0-0.5); Bilirubin Total 0.2 mg/dL (0.0-1.0); Blood Urea Nitrogen 23 mg/dL (9-16); Calcium 10.1 mg/dL (8.4-10.2); Carbon Dioxide 28 mmol/L (22-29); Chloride 102 mmol/L (96-108); Estimated Glomerular Filt Rate > 60; Glucose Random 88 mg/dL (60-115); Potassium 3.6 mmol/L (3.3-5.1); Sodium 138 mmol/L (135-145); Total Protein 9.4 g/dL (6.5-8.0)
[2024-03-05 11:52] LABS: Erythrocyte Sedimentation Rate 58 MM/HR (0-20)
== END 2024-03-05 09:56 | disposition home or self-care (01) ==
LOC: HO.XRAY 09:55
PROVIDERS: PCP Internal Medicine Geriatric Medicine; Visit Provider Hospitalist
DX: R91.8 Other nonspecific abnormal finding of lung field (principal)
CPT/HCPCS: 36415; 72100; 80048; 80076; 85025; 85652; 87040

== ENCOUNTER 2024-03-19 11:04 | Outpatient (AMB) | payer OTHER, SELFPAY ==
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
== END 2024-03-19 12:28 | disposition home or self-care (01) ==
PROVIDERS: PCP Internal Medicine Geriatric Medicine; Visit Provider Urology
DX: N32.81 Overactive bladder (principal)
CPT/HCPCS: 99214

== ENCOUNTER → 2024-03-19 11:04 | Outpatient (BNVA) | payer OTHER, SELFPAY | PROVIDERS: PCP Internal Medicine Geriatric Medicine; Visit Provider Urology | DX: N32.81 Overactive bladder (principal) | CPT/HCPCS: 81003; 99212 ==

== ENCOUNTER 2024-04-24 10:18 | Outpatient (AMB) | payer OTHER, SELFPAY ==
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
[2024-04-24 10:24] VITALS: BP 122/64; PULSE 68; O2SAT 98; BMI 21.0
--- OUTSIDE RECORDS SUMMARY | 2024-05-01 12:27 | XMS_ITS | Clinical Summary ---
Author Organization Unknown Care Team Providers Care Barber Apprentice Name Role Phone NAME TYREL LIANG Unavailable Unavailable VERONICA RN, ROLDAN Unavailable Unavailable JACKSON NIX, CORNELL Unavailable Unavailable Payers Payer Name Policy Type Policy Number Effective Date Expira tion Date [facility] [id number] MEDICAID [facility] [id number] MEDICARE - [facility] [facility] [id number] Problems Condition Name Condition Details Condition Category Status Onset Date Resolution Date Last Treatment Date Treating Clinician Comments ANXIETY DISORDER, UNSPECIFIED Active 10-21 00:00: 00 TYPE 2 DIABETES MELLITUS WITH OTHER SPECIFIED COMPLICATION Active 10-21 00:00: 00 CHRONIC OBSTRUCTIVE PULMONARY DISEASE, UNSPECIFIED Active 2022-05 00:00: 00 Allergies, Adverse Reactions, Alerts Allergy Name Allergy Type Status Severity Reaction(s) Onset Date Inactive Date Treating Clinician Comments PERCOCET Propensity to adverse reactions Active 2023-02 09:37:1 4 Medications Ordered Medication Name Filled Medication Name Start Date Stop Date Current Medication? Ordering Clinician Indication Dosage Frequency Signature (SIG) Comments Components Creon 24,000-76,0 00-120,000 unit capsule,del ayed release 2022-05 00:00: 00 Yes [id number] 1 capsule 4 TIMES DAILY 1 capsule 4 TIMES DAILY (route: oral) Med Classific ation: Gastroint estinal Therapy Agents gabapentin 300 mg capsule 2022-05 00:00: 00 06-27 23:59 :00 No [id number] 1 capsule 3 TIMES DAILY 1 capsule 3 TIMES DAILY (route: oral) Med Classific ation: Central Nervous System Agents hydrochloro thiazide 12.5 mg tablet 2022-05 00:00: 00 03-14 23:59 :00 No [id number] 1 tablet 2 TIMES DAILY 1 tablet 2 TIMES DAILY (route: oral) Med Classific ation: Cardiovas cular Therapy Agents Protonix 40 mg tablet,traci yed release 2022-05 00:00: 00 03-12 23:59 :00 No [id number] 1 tablet DAILY 1 tablet DAILY (route: oral) Med Classific ation: Gastroint estinal Therapy Agents albuterol sulfate concentrate 2.5 mg/0.5 mL solution for nebulizatio n 2022-05 00:00: 00 Yes [id number] 1 mL 4 TIMES DAILY 1 mL 4 TIMES DAILY (route: inhalation ) Med Classific ation: Respirato ry Therapy Agents albuterol sulfate HFA 90 mcg/actuati on aerosol inhaler 2022-05 00:00: 00 Yes [id number] 2 puff 4 TIMES DAILY 2 puff 4 TIMES DAILY (route: inhalation ) Med Classific ation: Respirato ry Therapy Agents bisacodyl 5 mg tablet,traci yed release 2022-05 00:00: 00 08-03 23:59 :00 No [id number] 1 tablet DAILY 1 tablet DAILY (route: oral) Med Classific ation: Gastroint estinal Therapy Agents bupropion HCl XL 300 mg 24 hr tablet, extended release 2022-05 00:00: 00 08-29 23:59 :00 No [id number] 1 tablet DAILY 1 tablet DAILY (route: oral) Med Classific ation: Central Nervous System Agents Colace 100 mg capsule 2022-05 00:00: 00 Yes [id number] 1 capsule 2 TIMES DAILY 1 capsule 2 TIMES DAILY (route: oral) Med Classific ation: Gastroint estinal Therapy Agents metformin 500 mg tablet 2022-05 00:00: 00 Yes [id number] 1 tablet 2 TIMES DAILY 1 tablet 2 TIMES DAILY (route: oral) Med Classific ation: Endocrine Topamax 100 mg tablet 2022-05 00:00: 00 Yes [id number] 1 tablet 2 TIMES DAILY 1 tablet 2 TIMES DAILY (route: oral) Med Classific ation: Central Nervous System Agents trazodone 100 mg tablet 2022-05 00:00: 00 04-04 23:59 :00 No [id number] 1 tablet BEDTIME 1 tablet BEDTIME (route: oral) Med Classific ation: Central Nervous System Agents hydroxyzine pamoate 25 mg capsule 2022-05 0-25 00:00: 00 05-27 23:59 :00 No [id number] 1 capsule DAILY 1 capsule DAILY (route: oral) Med Classific ation: Central Nervous System Agents hydrochloro thiazide 12.5 mg tablet 2022-05 0-23 00:00: 00 Yes [id number] 1 tablet DAILY 1 tablet DAILY (route: oral) Med Classific ation: Cardiovas cular Therapy Agents Aricept 5 mg tablet 2022-05 1-03 00:00: 00 07-06 23:59 :00 No [id number] 1 tablet BEDTIME 1 tablet BEDTIME (route: oral) Med Classific ation: Cognitive Disorder Therapy hydroxyzine pamoate 25 mg capsule 1-05 00:00: 00 08-29 23:59 :00 No [id number] 1 capsule 2 TIMES DAILY 1 capsule 2 TIMES DAILY (route: oral) Med Classific ation: Central Nervous System Agents gabapentin 300 mg capsule 2-10 00:00: 00 Yes [id number] 1 capsule DAILY 1 capsule DAILY (route: oral) Med Classific ation: Central Nervous System Agents Aricept 10 mg tablet 2-14 00:00: 00 04-04 23:59 :00 No [id number] 1 tablet BEDTIME 1 tablet BEDTIME (route: oral) Med Classific ation: Cognitive Disorder Therapy bisacodyl 5 mg tablet,traci yed release 3-14 00:00: 00 04-26 23:59 :00 No [id number] 1 tablet BEDTIME 1 tablet BEDTIME (route: oral) Med Classific ation: Gastroint estinal Therapy Agents ondansetron 4 mg disintegrat ing tablet 3-14 00:00: 00 Yes [id number] 1 tablet 3 TIMES DAILY 1 tablet 3 TIMES DAILY (route: oral) Med Classific ation: Gastroint estinal Therapy Agents solifenacin 10 mg tablet 3-14 00:00: 00 Yes [id number] 1 tablet DAILY 1 tablet DAILY (route: oral) Med Classific ation: Genitouri nary Therapy Cymbalta 30 mg capsule,del ayed release 08-30 00:00: 00 Yes [id number] 1 capsule DAILY 1 capsule DAILY (route: oral) Med Classific ation: Central Nervous System Agents Linzess 145 mcg capsule 08-30 00:00: 00 03-12 23:59 :00 No [id number] 1 capsule DAILY 1 capsule DAILY (route: oral) Med Classific ation: Gastroint estinal Therapy Agents cyclosporin e 0.05 % eye drops in a dropperette 2023-05 00:00: 00 Yes [id number] 1 dropper ette 2 TIMES DAILY 1 dropperett e 2 TIMES DAILY (route: ophthalmic (eye)) Med Classific ation: Ophthalmi c Agents Pepcid 40 mg tablet 2023-05 00:00: 00 04-26 23:59 :00 No [id number] 1 tablet 2 TIMES DAILY 1 tablet 2 TIMES DAILY (route: oral) Med Classific ation: Gastroint estinal Therapy Agents trazodone 50 mg tablet 2023-05 00:00: 00 04-26 23:59 :00 No [id number] 2 tablet BEDTIME 2 tablet BEDTIME (route: oral) Med Classific ation: Central Nervous System Agents bisacodyl 5 mg tablet,traci yed release 2023-05 00:00: 00 Yes [id number] 2 tablet BEDTIME 2 tablet BEDTIME (route: oral) Med Classific ation: Gastroint estinal Therapy Agents memantine 5 mg tablet 2023-05- 00:00: 00 Yes [id number] 1 tablet 2 TIMES DAILY 1 tablet 2 TIMES DAILY (route: oral) Med Classific ation: Cognitive Disorder Therapy pantoprazol e 40 mg tablet,traci yed release 2023-05- 00:00: 00 Yes [id number] 1 tablet BEDTIME 1 tablet BEDTIME (route: oral) Med Classific ation: Gastroint estinal Therapy Agents trazodone 100 mg tablet 2023-05 2- 00:00: 00 Yes [id number] 2.5 tablet BEDTIME 2.5 tablet BEDTIME (route: oral) Med Classific ation: Central Nervous System Agents Immunizations Ordered Immunization Name Filled Immunization Name Date Status Comments Refusal Reason COVID BOOSTER, COVID BOOSTER 2023-03-18 00:00:00 INFLUENZA, TIV (INACTIVATED) 2023-03-18 00:00:00 Vital Signs Vital Name Observation Time Observation Value Commen ts Pulse 2024-04-30 19:13:00.000 62 /min O2 Saturation (%) 2024-04-30 19:14:00.000 95 % Systolic Blood Pressure 2024-04-30 19:13:00.000 124 mm [Hg] Diastolic Blood Pressure 2024-04-30 19:13:00.000 66 mm [Hg] Plan of Treatment Planned Activity Planned Date Details Comments Future Scheduled Test SKILLED NU RSE TO EVALUATE PATIENT, IDENTIFY PRIMARY AND CO-MORBID CONDITIONS CODED PER CODING GUIDELINES, AND DEVELOP PATIENT SPECIFIC PLAN OF CARE THAT INCLUDES PATIENT GOAL FOR HOME HEALTH. [code = SKILLED NURSE TO EVALUATE PATIENT, IDENTIFY PRIMARY AND CO-MORBID CONDITIONS CODED PER CODING GUIDELINES, AND DEVELOP PATIENT SPECIFIC PLAN OF CARE THAT INCLUDES PATIENT GOAL FOR HOME HEALTH.] Future Scheduled Test SKILLED NU RSE TO PERFORM HOME SAFETY AND FALL ASSESSMENT AND PROVIDE INSTRUCTION TO IMPLEMENT HOME SAFETY AND FALL PREVENTION STRATEGIES. [code = SKILLED NURSE TO PERFORM HOME SAFETY AND FALL ASSESSMENT AND PROVIDE INSTRUCTION TO IMPLEMENT HOME SAFETY AND FALL PREVENTION STRATEGIES.] Future Scheduled Test SKILLED NU RSE FOR OBSERVATION AND ASSESSMENT OF PATIENTS PAIN LEVEL AND EFFECTIVENESS OF PAIN MANAGEMENT REGIMEN. SKILLED NURSE TO INSTRUCT PATIENT/CAREGIVER REGARDING PHARMACOLOGIC AND NON-PHARMACOLOGIC PAIN CONTROL MEASURES. SKILLED NURSE TO REPORT TO PHYSICIAN IF PAIN IS UNCONTROLLED WITH CURRENT PAIN MANAGEMENT REGIMEN. [code = SKILLED NURSE FOR OBSERVATION AND ASSESSMENT OF PATIENTS PAIN LEVEL AND EFFECTIVENESS OF PAIN MANAGEMENT REGIMEN. SKILLED NURSE TO INSTRUCT PATIENT/CAREGIVER REGARDING PHARMACOLOGIC AND NON-PHARMACOLOGIC PAIN CONTROL MEASURES. SKILLED NURSE TO REPORT TO PHYSICIAN IF PAIN IS UNCONTROLLED WITH CURRENT PAIN MANAGEMENT REGIMEN.] Future Scheduled Test SKILLED NU RSE TO ASSESS PATIENT'S SKIN INTEGRITY AND INSTRUCT PATIENT/CAREGIVER ON MEASURES TO PREVENT PRESSURE ULCERS. [code = SKILLED NURSE TO ASSESS PATIENT'S SKIN INTEGRITY AND INSTRUCT PATIENT/CAREGIVER ON MEASURES TO PREVENT PRESSURE ULCERS.] Future Scheduled Test PATIENT MEJIA S A RISK OF HOSPITALIZATION AND ED USE. SKILLED NURSE TO ESTABLISH SUPPORT MEASURES TO MINIMIZE RISK OF HOSPITALIZATION AND ED USE, AND INSTRUCT PATIENT/CAREGIVER ON METHODS TO REDUCE AVOIDABLE HOSPITALIZATION AND ED USE. [code = PATIENT HAS A RISK OF HOSPITALIZATION AND ED USE. SKILLED NURSE TO ESTABLISH SUPPORT MEASURES TO MINIMIZE RISK OF HOSPITALIZATION AND ED USE, AND INSTRUCT PATIENT/CAREGIVER ON METHODS TO REDUCE AVOIDABLE HOSPITALIZATION AND ED USE.] Future Scheduled Test SKILLED NU RSE TO PROVIDE INSTRUCTION TO PATIENT/CAREGIVER RELATED TO DISCHARGE PLANNING. [code = SKILLED NURSE TO PROVIDE INSTRUCTION TO PATIENT/CAREGIVER RELATED TO DISCHARGE PLANNING.] Future Scheduled Test SKILLED NU RSE TO O/A OF PATIENTS MENTAL/BEHAVIORAL STATUS, ASSESS VITAL SIGNS BIWEEKLY ALLOW 2 PRNS FOR MEDICATION MANAGEMENT. [code = SKILLED NURSE TO O/A OF PATIENTS MENTAL/BEHAVIORAL STATUS, ASSESS VITAL SIGNS BIWEEKLY ALLOW 2 PRNS FOR MEDICATION MANAGEMENT.] Future Scheduled Test SKILLED NU RSE WILL MAINTAIN SITUATIONAL AWARENESS FOR SAFETY AND WILL NOTIFY CLINICAL OUTSIDE REPAIRER SPECIAL AND PHYSICIAN/PROVIDER WITH ANY CHANGE IN CONDITION. [code = SKILLED NURSE WILL MAINTAIN SITUATIONAL AWARENESS FOR SAFETY AND WILL NOTIFY CLINICAL OUTSIDE REPAIRER SPECIAL AND PHYSICIAN/PROVIDER WITH ANY CHANGE IN CONDITION.] Future Scheduled Test SKILLED NU RSE FOR O/A OF GENERAL HEALTH STATUS OF PAIN, CARDIAC, RESPIRATORY, GASTROINTESTINAL, GENITOURINARY, SKIN, NEUROLOGIC, ENDOCRINE SYSTEMS TO IDENTIFY CHANGES ASSOCIATED WITH EXACERBATION FOR EARLY INTERVENTION OF COMPLICATIONS BIWEEKLY [code = SKILLED NURSE FOR O/A OF GENERAL HEALTH STATUS OF PAIN, CARDIAC, RESPIRATORY, GASTROINTESTINAL, GENITOURINARY, SKIN, NEUROLOGIC, ENDOCRINE SYSTEMS TO IDENTIFY CHANGES ASSOCIATED WITH EXACERBATION FOR EARLY INTERVENTION OF COMPLICATIONS BIWEEKLY ] Future Scheduled Test SKILLED NU RSE TO REVIEW PATIENT MEDICATIONS. INSTRUCT PATIENT/CAREGIVER ON MONITORING OF EFFECTIVENESS, ADVERSE DRUG REACTIONS, SIDE EFFECTS OF ALL MEDICATIONS (PRESCRIPTION/-OTC), AND HOW AND WHEN TO REPORT PROBLEMS. [code = SKILLED NURSE TO REVIEW PATIENT MEDICATIONS. INSTRUCT PATIENT/CAREGIVER ON MONITORING OF EFFECTIVENESS, ADVERSE DRUG REACTIONS, SIDE EFFECTS OF ALL MEDICATIONS (PRESCRIPTION/-OTC), AND HOW AND WHEN TO REPORT PROBLEMS.] Future Scheduled Test SKILLED NU RSE TO ADMINISTER MEDICATIONS AND PRE-POUR MEDICATIONS BIWEEKLY PER MEDICATION LIST. [code = SKILLED NURSE TO ADMINISTER MEDICATIONS AND PRE-POUR MEDICATIONS BIWEEKLY PER MEDICATION LIST.] Future Scheduled Test SKILLED NU RSE FOR O/A AND SKILLED TEACHING OF COPING SKILLS TO MANAGE ANXIETY AND MAINTAIN SAFETY. [code = SKILLED NURSE FOR O/A AND SKILLED TEACHING OF COPING SKILLS TO MANAGE ANXIETY AND MAINTAIN SAFETY.] Future Scheduled Test SKILLED NU RSE TO ASSESS PATIENTS PSYCHOSOCIAL STATUS TO IDENTIFY POTENTIAL ISSUES THAT MAY COMPLICATE THE PROVISION OF THE PLAN OF CARE INCLUDING THE PATIENTS ABILITY TO ACCESS COMMUNITY RESOURCES AND PSYCHOSOCIAL SUPPORT SERVICES. [code = SKILLED NURSE TO ASSESS PATIENTS PSYCHOSOCIAL STATUS TO IDENTIFY POTENTIAL ISSUES THAT MAY COMPLICATE THE PROVISION OF THE PLAN OF CARE INCLUDING THE PATIENTS ABILITY TO ACCESS COMMUNITY RESOURCES AND PSYCHOSOCIAL SUPPORT SERVICES.] Future Scheduled Test SKILLED NU RSE FOR O/A OF RESPIRATORY SYSTEM TO IDENTIFY CHANGES ASSOCIATED WITH EXACERBATION AND TO PROVIDE SKILLED TEACHING ON MANAGEMENT OF COPD RESPIRATORY DISEASE PROCESS. [code = SKILLED NURSE FOR O/A OF RESPIRATORY SYSTEM TO IDENTIFY CHANGES ASSOCIATED WITH EXACERBATION AND TO PROVIDE SKILLED TEACHING ON MANAGEMENT OF COPD RESPIRATORY DISEASE PROCESS.] Future Scheduled Test SKILLED NU RSE TO INSTRUCT PATIENT/CAREGIVER ON COPD TO INCLUDE TEACHING AND SELF-MANAGEMENT RELATED TO COPD DISEASE PROCESS, SIGNS AND SYMPTOMS, AND COMPLICATIONS. [code = SKILLED NURSE TO INSTRUCT PATIENT/CAREGIVER ON COPD TO INCLUDE TEACHING AND SELF-MANAGEMENT RELATED TO COPD DISEASE PROCESS, SIGNS AND SYMPTOMS, AND COMPLICATIONS.] Goal Patient Goal - P T WILL BE COMPLIANT WITH MEDS AND UTILIZE STRATEGIES TO MANAGE ANXIETY Goal 2024-04-26 Patient Goal - P T WILL BE COMPLIANT WITH MEDS AND UTILIZE STRATEGIES TO MANAGE ANXIETY Goal 2024-02-24 Patient Goal - P T WILL BE COMPLIANT WITH MEDS AND UTILIZE STRATEGIES TO MANAGE ANXIETY Goal 2023-12-27 Patient Goal - P T WILL BE COMPLIANT WITH MEDS AND UTILIZE STRATEGIES TO MANAGE ANXIETY Goal 2023-10-28 Patient Goal - P T WILL BE COMPLIANT WITH MEDS AND UTILIZE STRATEGIES TO MANAGE ANXIETY Goal 2023-08-30 Patient Goal - P T WILL BE COMPLIANT WITH MEDS AND UTILIZE STRATEGIES TO MANAGE ANXIETY Goal 2023 Patient Goal - P T WILL BE COMPLIANT WITH MEDS AND UTILIZE STRATEGIES TO MANAGE ANXIETY Goal 2023-04-28 Patient Goal - P T WILL BE COMPLIANT WITH MEDS AND UTILIZE STRATEGIES TO MANAGE ANXIETY Goal Provider Goal - A PLAN OF CARE WILL BE ESTABLISHED THAT MEETS PATIENT'S USP NEEDS AND INCLUDES PATIENT GOAL FOR HOME HEALTH. Goal Provider Goal - PATIENT/CAREGIVER WILL VERBALIZE/DEMONSTRATE EFFECTIVE HOME SAFETY AND FALL PREVENTION STRATEGIES THROUGHOUT CERTIFICATION PERIOD. Goal Provider Goal - PATIENT/CAREGIVER WILL DEMONSTRATE UNDERSTANDING OF PHARMACOLOGIC AND NONPHARMACOLOGIC PAIN CONTROL MEASURES AND PATIENT WILL HAVE IMPROVEMENT IN PAIN INTERFERING WITH ACTIVITY EVIDENCED BY PAIN CONTROLLED AT LEVEL OF 2 OR LESS BY END OF CERTIFICATION PERIOD. Goal Provider Goal - PATIENT/CAREGIVER WILL VERBALIZE UNDERSTANDING OF PRESSURE ULCER PREVENTION BY END OF THE EPISODE. Goal Provider Goal - PATIENT WILL HAVE SUPPORT MEASURES ESTABLISHED TO PREVENT HOSPITALIZATION AND ED USE AND PATIENT/CAREGIVER WILL VERBALIZE/DEMONSTRATE METHODS TO REDUCE AVOIDABLE HOSPITALIZATION AND ED USE BY END OF EPISODE. Goal Provider Goal - PATIENT/CAREGIVER WILL VERBALIZE UNDERSTANDING OF DISCHARGE PLANNING INSTRUCTIONS BY DATE OF DISCHARGE. Goal Provider Goal - ALTERED MENTAL/BEHAVIORAL STATUS WILL BE IDENTIFIED PROMPTLY AND INTERVENTION INITIATED QUICKLY TO MINIMIZE ASSOCIATED RISKS THROUGHOUT CERTIFICATION PERIOD. Goal Provider Goal - PATIENT WILL REMAIN SAFE IN THE COMMUNITY AND WILL BE FREE OF DANGER TO SELF AND OTHERS THROUGHOUT THE CERTIFICATION PERIOD. Goal Provider Goal - CHANGE IN GENERAL HEALTH STATUS WILL BE IDENTIFIED AND REPORTED TO PHYSICIAN FOR PROMPT INTERVENTION TO MINIMIZE ASSOCIATED RISKS THROUGHOUT CERTIFICATION PERIOD. Goal Provider Goal - PATIENT/CAREGIVER WILL VERBALIZE UNDERSTANDING OF EDUCATION PROVIDED ON MEDICATIONS BY THE END OF THE CERTIFICATION PERIOD. Goal Provider Goal - PATIENT WILL COMPLY WITH MEDICATION WHEN SKILLED NURSE ADMINISTERS AND PRE-POURS MEDICATION THROUGHOUT CERTIFICATION PERIOD. Goal Provider Goal - PATIENT WILL BE ABLE TO PERFORM DAILY FUNCTIONS AND HAVE OPTIMAL IMPROVEMENT IN LEVEL OF ANXIETY THROUGHOUT CERTIFICATION PERIOD. Goal Provider Goal - PSYCHOSOCIAL NEEDS WILL BE IDENTIFIED AND PLAN IMPLEMENTED TO MINIMIZE RISK THROUGHOUT CERTIFICATION PERIOD. Goal Provider Goal - PATIENT/CAREGIVER WILL VERBALIZE/DEMONSTRATE MANAGEMENT OF COPD RESPIRATORY DISEASE PROCESS. CHANGES IN RESPIRATORY STATUS WILL BE IDENTIFIED AND REPORTED TO PHYSICIAN FOR PROMPT INTERVENTION THROUGHOUT THE CERTIFICATION PERIOD. Goal Provider Goal - PATIENT/CAREGIVER WILL VERBALIZE/DEMONSTRATE KNOWLEDGE AND MANAGEMENT OF COPD BY END OF EPISODE. Encounters Start Date/Time End Date/Time Encounter Type Admission Type Attending Clinicians Care Facility Care Department Encounter ID Discharge Date Discharge Status Discharge Condition Discharge Reason Percent Goals Met 2023-03-04 00:00:00 2024-06-25 00:00:00 Outpatient RECERTIFIC ROLDAN BRICEÑO [facility] [id number]
== END 2024-04-24 10:49 | disposition home or self-care (01) ==
PROVIDERS: PCP Internal Medicine Geriatric Medicine; Visit Provider Hospitalist
DX: R91.8 Other nonspecific abnormal finding of lung field (principal); R06.09 Other forms of dyspnea; I77.82 Antineutrophilic cytoplasmic antibody [ANCA] vasculitis; J47.9 Bronchiectasis, uncomplicated
CPT/HCPCS: 99214; G2211

== ENCOUNTER → 2024-04-24 10:18 | Outpatient (BNVA) | payer OTHER, SELFPAY | PROVIDERS: PCP Internal Medicine Geriatric Medicine; Visit Provider Hospitalist | DX: J47.9 Bronchiectasis, uncomplicated (principal); R91.8 Other nonspecific abnormal finding of lung field; R06.09 Other forms of dyspnea; I77.82 Antineutrophilic cytoplasmic antibody [ANCA] vasculitis | CPT/HCPCS: 99212 ==

== ENCOUNTER 2024-04-30 10:07 | Outpatient (REF) | payer OTHER, SELFPAY ==
[2024-04-30 11:17] LABS: Hemoglobin 11.3 g/dl (12.0-16.0); Imm Gran Abs Auto 0.02 X10*3/uL (0.00-0.03); Imm Gran Pct Auto 0.3 % (0.0-0.4); Mean Corpuscular Volume 95.4 fL (80.0-98.0)
[2024-04-30 11:18] LABS: Basophils Percent Auto 0.3 % (0-2); Eosinophils Absolute Auto 0.1 X10*3/uL (0.0-0.4); Eosinophils Percent Auto 1.9 % (0-4); Hematocrit 35.1 % (37.0-47.0); Lymphocytes Absolute Auto 1.9 X10*3/uL (1.2-4.9); Lymphocytes Percent Auto 26.7 % (20-40); Mean Corpuscular HGB Conc 32.2 g/dl (31.0-35.0); Mean Corpuscular Hemoglobin 30.7 pg (27.0-33.0); Monocytes Absolute Auto 0.5 X10*3/uL (0.1-1.2); Monocytes Percent Auto 6.6 % (2-11); Neutrophils Absolute Auto 4.6 x10*3/uL (2.0-8.3); Neutrophils Percent Auto 64.2 % (45-73); Red Blood Count 3.68 X10*6/uL (4.20-5.50); Red Cell Distribution Width 13.4 % (11.0-16.0)
[2024-04-30 11:19] LABS: Platelet Count 231 X10*3/uL (160-400); White Blood Count 7.2 X10*3/uL (4.8-10.8)
[2024-04-30 11:54] LABS: Erythrocyte Sedimentation Rate 36 MM/HR (0-20)
[2024-04-30 11:58] LABS: Appearance Urine Clear; Color Urine Yellow; Glucose Urine UA Negative (Negative); Leukocyte Esterase Urine Negative (Negative); Nitrite Urine Negative (Negative); Specific Gravity - Urine 1.015 (1.005-1.025); Urine Blood Negative (Negative); Urine Ketones Negative (Negative); Urine Protein Negative (Neg-Trace)
[2024-04-30 12:05] LABS: Bacteria Urine None Seen (None Seen); Hyaline Casts Urine 0-2 /LPF (0-2); RBC Urine 0-2 /HPF (0-2); Squamous Epithelial Cell Urine 0-2 /HPF (0-2); WBC Urine 0-5 /HPF (0-5)
[2024-04-30 12:24] LABS: Alanine Aminotransferase 7 U/L (0-31); Albumin Level 3.4 g/dL (3.5-5.0); Alkaline Phosphatase 84 U/L (39-117); Anion Gap 8 (12-20); Aspartate Amino Transferase 19 U/L (5-31); Bilirubin Total 0.2 mg/dL (0.0-1.0); Blood Urea Nitrogen 21 mg/dL (9-16); C Reactive Protein 0.19 mg/dL (< or = 0.50); Calcium 9.7 mg/dL (8.4-10.2); Carbon Dioxide 26 mmol/L (22-29); Chloride 107 mmol/L (96-108); Estimated Glomerular Filt Rate > 60; Glucose Random 92 mg/dL (60-115); Potassium 3.5 mmol/L (3.3-5.1); Sodium 137 mmol/L (135-145); Total Protein 7.8 g/dL (6.5-8.0)
[2024-04-30 14:35] LABS: Creatinine Urine 80.01 mg/dL; Total Protein Urine Random < 7 mg/dL (<12)
--- OUTSIDE RECORDS SUMMARY | 2024-05-02 14:22 | XMS_ITS | Clinical Summary ---
Author Organization Unknown Care Team Providers Care Digital Service Engineer Name Role Phone NAME TYREL LIANG Unavailable Unavailable VERONICA RN, ROLDAN Unavailable Unavailable JACKSON NIX, CORNELL Unavailable Unavailable Payers Payer Name Policy Type Policy Number Effective Date Expira tion Date [facility] [place] [id number] MEDICAID [facility] [id number] MEDICARE - [facility]/[place] - [facility] [id number] Problems Condition Name Condition Details Condition Category [...] capsule,del ayed release 2022-05 00:00: 00 Yes [id number] 1 capsule 4 TIMES DAILY 1 capsule 4 TIMES DAILY (route: oral) Med Classific ation: Gastroint estinal Therapy Agents gabapentin 300 mg capsule 2022-05 00:00: 00 06-27 23:59 :00 No [id number] 1 capsule 3 TIMES DAILY 1 capsule 3 TIMES DAILY (route: oral) Med Classific ation: Central Nervous System Agents hydrochloro thiazide 12.5 mg tablet 2022-05 00:00: 00 03-14 23:59 :00 No [id number] 1 tablet 2 TIMES DAILY 1 tablet 2 TIMES DAILY (route: oral) Med Classific ation: Cardiovas cular Therapy Agents Protonix 40 mg tablet,traci yed release 2022-05 00:00: 00 03-12 23:59 :00 No [id number] 1 tablet DAILY 1 tablet DAILY (route: oral) Med Classific ation: Gastroint estinal Therapy Agents albuterol sulfate concentrate 2.5 mg/0.5 mL solution for nebulizatio n 2022-05 00:00: 00 Yes [id number] 1 mL 4 TIMES DAILY 1 mL 4 TIMES DAILY (route: inhalation ) Med Classific ation: Respirato ry Therapy Agents albuterol sulfate HFA 90 mcg/actuati on aerosol inhaler 2022-05 00:00: 00 Yes [id number] 2 puff 4 TIMES DAILY 2 puff 4 TIMES DAILY (route: inhalation ) Med Classific ation: Respirato ry Therapy Agents bisacodyl 5 mg tablet,traci yed release 2022-05 00:00: 00 08-03 23:59 :00 No [id number] 1 tablet DAILY 1 tablet DAILY (route: oral) Med Classific ation: Gastroint estinal Therapy Agents bupropion HCl XL 300 mg 24 hr tablet, extended release 2022-05 00:00: 00 08-29 23:59 :00 No [id number] 1 tablet DAILY 1 tablet DAILY (route: oral) Med Classific ation: Central Nervous System Agents Colace 100 mg capsule 2022-05 00:00: 00 Yes [id number] 1 capsule 2 TIMES DAILY 1 capsule 2 TIMES DAILY (route: oral) Med Classific ation: Gastroint estinal Therapy Agents metformin 500 mg tablet 2022-05 00:00: 00 Yes [id number] 1 tablet 2 TIMES DAILY 1 tablet 2 TIMES DAILY (route: oral) Med Classific ation: Endocrine Topamax 100 mg tablet 2022-05 00:00: 00 Yes [id number] 1 tablet 2 TIMES DAILY 1 tablet 2 TIMES DAILY (route: oral) Med Classific ation: Central Nervous System Agents trazodone 100 mg tablet 2022-05 00:00: 00 04-04 23:59 :00 No [id number] 1 tablet BEDTIME 1 tablet BEDTIME (route: oral) Med Classific ation: Central Nervous System Agents hydroxyzine pamoate 25 mg capsule 2022-05 0-25 00:00: 00 05-27 23:59 :00 No [id number] 1 capsule DAILY 1 capsule DAILY (route: oral) Med Classific ation: Central Nervous System Agents hydrochloro thiazide 12.5 mg tablet 2022-05 0-23 00:00: 00 Yes [id number] 1 tablet DAILY 1 tablet DAILY (route: oral) Med Classific ation: Cardiovas cular Therapy Agents Aricept 5 mg tablet 2022-05 1-03 00:00: 00 07-06 23:59 :00 No [id number] 1 tablet BEDTIME 1 tablet BEDTIME (route: oral) Med Classific ation: Cognitive Disorder Therapy hydroxyzine pamoate 25 mg capsule 1-05 00:00: 00 08-29 23:59 :00 No [id number] 1 capsule 2 TIMES DAILY 1 capsule 2 TIMES DAILY (route: oral) Med Classific ation: Central Nervous System Agents gabapentin 300 mg capsule 2-10 00:00: 00 Yes [id number] 1 capsule DAILY 1 capsule DAILY (route: oral) Med Classific ation: Central Nervous System Agents Aricept 10 mg tablet 2-14 00:00: 00 04-04 23:59 :00 No [id number] 1 tablet BEDTIME 1 tablet BEDTIME (route: oral) Med Classific ation: Cognitive Disorder Therapy bisacodyl 5 mg tablet,traci yed release 3-14 00:00: 00 04-26 23:59 :00 No [id number] 1 tablet BEDTIME 1 tablet BEDTIME (route: oral) Med Classific ation: Gastroint estinal Therapy Agents ondansetron 4 mg disintegrat ing tablet 3-14 00:00: 00 Yes [id number] 1 tablet 3 TIMES DAILY 1 tablet 3 TIMES DAILY (route: oral) Med Classific ation: Gastroint estinal Therapy Agents solifenacin 10 mg tablet 3-14 00:00: 00 Yes [id number] 1 tablet DAILY 1 tablet DAILY (route: oral) Med Classific ation: Genitouri nary Therapy Cymbalta 30 mg capsule,del ayed release 08-30 00:00: 00 Yes [id number] 1 capsule DAILY 1 capsule DAILY (route: oral) Med Classific ation: Central Nervous System Agents Linzess 145 mcg capsule 08-30 00:00: 00 03-12 23:59 :00 No [id number] 1 capsule DAILY 1 capsule DAILY (route: oral) Med Classific ation: Gastroint estinal Therapy Agents cyclosporin e 0.05 % eye drops in a dropperette 2023-05 00:00: 00 Yes [id number] 1 dropper ette 2 TIMES DAILY 1 dropperett e 2 TIMES DAILY (route: ophthalmic (eye)) Med Classific ation: Ophthalmi c Agents Pepcid 40 mg tablet 2023-05 00:00: 00 04-26 23:59 :00 No [id number] 1 tablet 2 TIMES DAILY 1 tablet 2 TIMES DAILY (route: oral) Med Classific ation: Gastroint estinal Therapy Agents trazodone 50 mg tablet 2023-05 00:00: 00 04-26 23:59 :00 No [id number] 2 tablet BEDTIME 2 tablet BEDTIME (route: oral) Med Classific ation: Central Nervous System Agents bisacodyl 5 mg tablet,traci yed release 2023-05 00:00: 00 Yes [id number] 2 tablet BEDTIME 2 tablet BEDTIME (route: oral) Med Classific ation: Gastroint estinal Therapy Agents memantine 5 mg tablet 2023-05- 00:00: 00 Yes [id number] 1 tablet 2 TIMES DAILY 1 tablet 2 TIMES DAILY (route: oral) Med Classific ation: Cognitive Disorder Therapy pantoprazol e 40 mg tablet,traci yed release 2023-05- 00:00: 00 Yes [id number] 1 tablet BEDTIME 1 tablet BEDTIME (route: oral) Med Classific ation: Gastroint estinal Therapy Agents trazodone 100 mg tablet 2023-05 2- 00:00: 00 Yes [id number] 2.5 tablet BEDTIME 2.5 tablet BEDTIME (route: [...] AWARENESS FOR SAFETY AND WILL NOTIFY CLINICAL EXCEPTIONAL CHILDREN TEACHER AND PHYSICIAN/PROVIDER WITH ANY CHANGE IN CONDITION. [code = SKILLED NURSE WILL MAINTAIN SITUATIONAL AWARENESS FOR SAFETY AND WILL NOTIFY CLINICAL EXCEPTIONAL CHILDREN TEACHER AND PHYSICIAN/PROVIDER WITH ANY CHANGE IN CONDITION.] [...] PROCESS, SIGNS AND SYMPTOMS, AND COMPLICATIONS.] Goal 2023-04-28 Patient Goal - P T [...] AND UTILIZE STRATEGIES TO MANAGE ANXIETY Goal Patient Goal - P T WILL BE COMPLIANT WITH MEDS AND UTILIZE STRATEGIES TO MANAGE ANXIETY Goal Provider Goal - A PLAN OF CARE WILL BE ESTABLISHED THAT MEETS PATIENT'S ALF NEEDS AND INCLUDES PATIENT GOAL FOR HOME [...] 00:00:00 2024-06-25 00:00:00 Outpatient RECERTIFIC ROLDAN BRICEÑO [facility] [id number] 9.38
--- OUTSIDE RECORDS SUMMARY | 2024-05-02 14:22 | XMS_ITS | Clinical Summary ---
Author Organization Unknown Care Team Providers Care Saute Chef Name Role Phone NAME TYREL LIANG Unavailable Unavailable VERONICA RN, ROLDAN Unavailable Unavailable JACKSON NIX, CORNELL Unavailable Unavailable Payers Payer Name Policy Type Policy Number Effective Date Expira tion Date [facility] [place] [id number] MEDICAID [facility] [id number] MEDICARE - [facility]/[place] - [facility] [id number] Problems Condition Name Condition Details Condition Category [...] capsule,del ayed release 2022-05 00:00: 00 Yes [id number] 1 capsule 4 TIMES DAILY 1 capsule 4 TIMES DAILY (route: oral) Med Classific ation: Gastroint estinal Therapy Agents gabapentin 300 mg capsule 2022-05 00:00: 00 06-27 23:59 :00 No [id number] 1 capsule 3 TIMES DAILY 1 capsule 3 TIMES DAILY (route: oral) Med Classific ation: Central Nervous System Agents hydrochloro thiazide 12.5 mg tablet 2022-05 00:00: 00 03-14 23:59 :00 No [id number] 1 tablet 2 TIMES DAILY 1 tablet 2 TIMES DAILY (route: oral) Med Classific ation: Cardiovas cular Therapy Agents Protonix 40 mg tablet,traci yed release 2022-05 00:00: 00 03-12 23:59 :00 No [id number] 1 tablet DAILY 1 tablet DAILY (route: oral) Med Classific ation: Gastroint estinal Therapy Agents albuterol sulfate concentrate 2.5 mg/0.5 mL solution for nebulizatio n 2022-05 00:00: 00 Yes [id number] 1 mL 4 TIMES DAILY 1 mL 4 TIMES DAILY (route: inhalation ) Med Classific ation: Respirato ry Therapy Agents albuterol sulfate HFA 90 mcg/actuati on aerosol inhaler 2022-05 00:00: 00 Yes [id number] 2 puff 4 TIMES DAILY 2 puff 4 TIMES DAILY (route: inhalation ) Med Classific ation: Respirato ry Therapy Agents bisacodyl 5 mg tablet,traci yed release 2022-05 00:00: 00 08-03 23:59 :00 No [id number] 1 tablet DAILY 1 tablet DAILY (route: oral) Med Classific ation: Gastroint estinal Therapy Agents bupropion HCl XL 300 mg 24 hr tablet, extended release 2022-05 00:00: 00 08-29 23:59 :00 No [id number] 1 tablet DAILY 1 tablet DAILY (route: oral) Med Classific ation: Central Nervous System Agents Colace 100 mg capsule 2022-05 00:00: 00 Yes [id number] 1 capsule 2 TIMES DAILY 1 capsule 2 TIMES DAILY (route: oral) Med Classific ation: Gastroint estinal Therapy Agents metformin 500 mg tablet 2022-05 00:00: 00 Yes [id number] 1 tablet 2 TIMES DAILY 1 tablet 2 TIMES DAILY (route: oral) Med Classific ation: Endocrine Topamax 100 mg tablet 2022-05 00:00: 00 Yes [id number] 1 tablet 2 TIMES DAILY 1 tablet 2 TIMES DAILY (route: oral) Med Classific ation: Central Nervous System Agents trazodone 100 mg tablet 2022-05 00:00: 00 04-04 23:59 :00 No [id number] 1 tablet BEDTIME 1 tablet BEDTIME (route: oral) Med Classific ation: Central Nervous System Agents hydroxyzine pamoate 25 mg capsule 2022-05 0-25 00:00: 00 05-27 23:59 :00 No [id number] 1 capsule DAILY 1 capsule DAILY (route: oral) Med Classific ation: Central Nervous System Agents hydrochloro thiazide 12.5 mg tablet 2022-05 0-23 00:00: 00 Yes [id number] 1 tablet DAILY 1 tablet DAILY (route: oral) Med Classific ation: Cardiovas cular Therapy Agents Aricept 5 mg tablet 2022-05 1-03 00:00: 00 07-06 23:59 :00 No [id number] 1 tablet BEDTIME 1 tablet BEDTIME (route: oral) Med Classific ation: Cognitive Disorder Therapy hydroxyzine pamoate 25 mg capsule 1-05 00:00: 00 08-29 23:59 :00 No [id number] 1 capsule 2 TIMES DAILY 1 capsule 2 TIMES DAILY (route: oral) Med Classific ation: Central Nervous System Agents gabapentin 300 mg capsule 2-10 00:00: 00 Yes [id number] 1 capsule DAILY 1 capsule DAILY (route: oral) Med Classific ation: Central Nervous System Agents Aricept 10 mg tablet 2-14 00:00: 00 04-04 23:59 :00 No [id number] 1 tablet BEDTIME 1 tablet BEDTIME (route: oral) Med Classific ation: Cognitive Disorder Therapy bisacodyl 5 mg tablet,traci yed release 3-14 00:00: 00 04-26 23:59 :00 No [id number] 1 tablet BEDTIME 1 tablet BEDTIME (route: oral) Med Classific ation: Gastroint estinal Therapy Agents ondansetron 4 mg disintegrat ing tablet 3-14 00:00: 00 Yes [id number] 1 tablet 3 TIMES DAILY 1 tablet 3 TIMES DAILY (route: oral) Med Classific ation: Gastroint estinal Therapy Agents solifenacin 10 mg tablet 3-14 00:00: 00 Yes [id number] 1 tablet DAILY 1 tablet DAILY (route: oral) Med Classific ation: Genitouri nary Therapy Cymbalta 30 mg capsule,del ayed release 08-30 00:00: 00 Yes [id number] 1 capsule DAILY 1 capsule DAILY (route: oral) Med Classific ation: Central Nervous System Agents Linzess 145 mcg capsule 08-30 00:00: 00 03-12 23:59 :00 No [id number] 1 capsule DAILY 1 capsule DAILY (route: oral) Med Classific ation: Gastroint estinal Therapy Agents cyclosporin e 0.05 % eye drops in a dropperette 2023-05 00:00: 00 Yes [id number] 1 dropper ette 2 TIMES DAILY 1 dropperett e 2 TIMES DAILY (route: ophthalmic (eye)) Med Classific ation: Ophthalmi c Agents Pepcid 40 mg tablet 2023-05 00:00: 00 04-26 23:59 :00 No [id number] 1 tablet 2 TIMES DAILY 1 tablet 2 TIMES DAILY (route: oral) Med Classific ation: Gastroint estinal Therapy Agents trazodone 50 mg tablet 2023-05 00:00: 00 04-26 23:59 :00 No [id number] 2 tablet BEDTIME 2 tablet BEDTIME (route: oral) Med Classific ation: Central Nervous System Agents bisacodyl 5 mg tablet,traci yed release 2023-05 00:00: 00 Yes [id number] 2 tablet BEDTIME 2 tablet BEDTIME (route: oral) Med Classific ation: Gastroint estinal Therapy Agents memantine 5 mg tablet 2023-05- 00:00: 00 Yes [id number] 1 tablet 2 TIMES DAILY 1 tablet 2 TIMES DAILY (route: oral) Med Classific ation: Cognitive Disorder Therapy pantoprazol e 40 mg tablet,traci yed release 2023-05- 00:00: 00 Yes [id number] 1 tablet BEDTIME 1 tablet BEDTIME (route: oral) Med Classific ation: Gastroint estinal Therapy Agents trazodone 100 mg tablet 2023-05 2- 00:00: 00 Yes [id number] 2.5 tablet BEDTIME 2.5 tablet BEDTIME (route: [...] AWARENESS FOR SAFETY AND WILL NOTIFY CLINICAL E MAIL SYSTEM ADMINISTRATOR AND PHYSICIAN/PROVIDER WITH ANY CHANGE IN CONDITION. [code = SKILLED NURSE WILL MAINTAIN SITUATIONAL AWARENESS FOR SAFETY AND WILL NOTIFY CLINICAL E MAIL SYSTEM ADMINISTRATOR AND PHYSICIAN/PROVIDER WITH ANY CHANGE IN CONDITION.] [...] CARE WILL BE ESTABLISHED THAT MEETS PATIENT'S HALF-WAY NEEDS AND INCLUDES PATIENT GOAL FOR HOME [...] 00:00:00 2024-06-25 00:00:00 Outpatient RECERTIFIC ROLDAN BRICEÑO [facility] [id number] 9.38
[2024-05-03 15:49] LABS: Myeloperoxidase Antibody 14.4 AI
== END 2024-04-30 10:08 | disposition home or self-care (01) ==
LOC: HO.LAB 10:07
PROVIDERS: Hospitalist; PCP Internal Medicine Geriatric Medicine; Visit Provider Student in an Organized Health Care Education/Training Program
DX: R07.81 Pleurodynia (principal); I77.82 Antineutrophilic cytoplasmic antibody [ANCA] vasculitis
CPT/HCPCS: 36415; 80053; 81001; 82570; 84156; 85025; 85652; 86021; 86140

== ENCOUNTER 2024-05-03 14:19 | Outpatient (AMB) | payer OTHER, SELFPAY ==
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
--- OUTSIDE RECORDS SUMMARY | 2024-05-03 14:22 | XMS_ITS | Clinical Summary ---
Author Organization Unknown Care Team Providers Care Dental Assistant Teacher Name Role Phone NAME TYREL LIANG Unavailable Unavailable VERONICA RN, ROLDAN Unavailable Unavailable JACKSON NIX, CORNELL Unavailable Unavailable Payers Payer Name Policy Type Policy Number Effective Date Expira tion Date [facility] [place] [id number] MEDICAID [facility] [id number] MEDICARE - [facility] [facility] [id number] Problems Condition Name Condition Details Condition Category [...] capsule,del ayed release 2022-05 00:00: 00 Yes [id number] 1 capsule 4 TIMES DAILY 1 capsule 4 TIMES DAILY (route: oral) Med Classific ation: Gastroint estinal Therapy Agents gabapentin 300 mg capsule 2022-05 00:00: 00 06-27 23:59 :00 No [id number] 1 capsule 3 TIMES DAILY 1 capsule 3 TIMES DAILY (route: oral) Med Classific ation: Central Nervous System Agents hydrochloro thiazide 12.5 mg tablet 2022-05 00:00: 00 03-14 23:59 :00 No [id number] 1 tablet 2 TIMES DAILY 1 tablet 2 TIMES DAILY (route: oral) Med Classific ation: Cardiovas cular Therapy Agents Protonix 40 mg tablet,traci yed release 2022-05 00:00: 00 03-12 23:59 :00 No [id number] 1 tablet DAILY 1 tablet DAILY (route: oral) Med Classific ation: Gastroint estinal Therapy Agents albuterol sulfate concentrate 2.5 mg/0.5 mL solution for nebulizatio n 2022-05 00:00: 00 Yes [id number] 1 mL 4 TIMES DAILY 1 mL 4 TIMES DAILY (route: inhalation ) Med Classific ation: Respirato ry Therapy Agents albuterol sulfate HFA 90 mcg/actuati on aerosol inhaler 2022-05 00:00: 00 Yes [id number] 2 puff 4 TIMES DAILY 2 puff 4 TIMES DAILY (route: inhalation ) Med Classific ation: Respirato ry Therapy Agents bisacodyl 5 mg tablet,traci yed release 2022-05 00:00: 00 08-03 23:59 :00 No [id number] 1 tablet DAILY 1 tablet DAILY (route: oral) Med Classific ation: Gastroint estinal Therapy Agents bupropion HCl XL 300 mg 24 hr tablet, extended release 2022-05 00:00: 00 08-29 23:59 :00 No [id number] 1 tablet DAILY 1 tablet DAILY (route: oral) Med Classific ation: Central Nervous System Agents Colace 100 mg capsule 2022-05 00:00: 00 Yes [id number] 1 capsule 2 TIMES DAILY 1 capsule 2 TIMES DAILY (route: oral) Med Classific ation: Gastroint estinal Therapy Agents metformin 500 mg tablet 2022-05 00:00: 00 Yes [id number] 1 tablet 2 TIMES DAILY 1 tablet 2 TIMES DAILY (route: oral) Med Classific ation: Endocrine Topamax 100 mg tablet 2022-05 00:00: 00 Yes [id number] 1 tablet 2 TIMES DAILY 1 tablet 2 TIMES DAILY (route: oral) Med Classific ation: Central Nervous System Agents trazodone 100 mg tablet 2022-05 00:00: 00 04-04 23:59 :00 No [id number] 1 tablet BEDTIME 1 tablet BEDTIME (route: oral) Med Classific ation: Central Nervous System Agents hydroxyzine pamoate 25 mg capsule 2022-05 0-25 00:00: 00 05-27 23:59 :00 No [id number] 1 capsule DAILY 1 capsule DAILY (route: oral) Med Classific ation: Central Nervous System Agents hydrochloro thiazide 12.5 mg tablet 2022-05 0-23 00:00: 00 Yes [id number] 1 tablet DAILY 1 tablet DAILY (route: oral) Med Classific ation: Cardiovas cular Therapy Agents Aricept 5 mg tablet 2022-05 1-03 00:00: 00 07-06 23:59 :00 No [id number] 1 tablet BEDTIME 1 tablet BEDTIME (route: oral) Med Classific ation: Cognitive Disorder Therapy hydroxyzine pamoate 25 mg capsule 1-05 00:00: 00 08-29 23:59 :00 No [id number] 1 capsule 2 TIMES DAILY 1 capsule 2 TIMES DAILY (route: oral) Med Classific ation: Central Nervous System Agents gabapentin 300 mg capsule 2-10 00:00: 00 Yes [id number] 1 capsule DAILY 1 capsule DAILY (route: oral) Med Classific ation: Central Nervous System Agents Aricept 10 mg tablet 2-14 00:00: 00 04-04 23:59 :00 No [id number] 1 tablet BEDTIME 1 tablet BEDTIME (route: oral) Med Classific ation: Cognitive Disorder Therapy bisacodyl 5 mg tablet,traci yed release 3-14 00:00: 00 04-26 23:59 :00 No [id number] 1 tablet BEDTIME 1 tablet BEDTIME (route: oral) Med Classific ation: Gastroint estinal Therapy Agents ondansetron 4 mg disintegrat ing tablet 3-14 00:00: 00 Yes [id number] 1 tablet 3 TIMES DAILY 1 tablet 3 TIMES DAILY (route: oral) Med Classific ation: Gastroint estinal Therapy Agents solifenacin 10 mg tablet 3-14 00:00: 00 Yes [id number] 1 tablet DAILY 1 tablet DAILY (route: oral) Med Classific ation: Genitouri nary Therapy Cymbalta 30 mg capsule,del ayed release 08-30 00:00: 00 Yes [id number] 1 capsule DAILY 1 capsule DAILY (route: oral) Med Classific ation: Central Nervous System Agents Linzess 145 mcg capsule 08-30 00:00: 00 03-12 23:59 :00 No [id number] 1 capsule DAILY 1 capsule DAILY (route: oral) Med Classific ation: Gastroint estinal Therapy Agents cyclosporin e 0.05 % eye drops in a dropperette 2023-05 00:00: 00 Yes [id number] 1 dropper ette 2 TIMES DAILY 1 dropperett e 2 TIMES DAILY (route: ophthalmic (eye)) Med Classific ation: Ophthalmi c Agents Pepcid 40 mg tablet 2023-05 00:00: 00 04-26 23:59 :00 No [id number] 1 tablet 2 TIMES DAILY 1 tablet 2 TIMES DAILY (route: oral) Med Classific ation: Gastroint estinal Therapy Agents trazodone 50 mg tablet 2023-05 00:00: 00 04-26 23:59 :00 No [id number] 2 tablet BEDTIME 2 tablet BEDTIME (route: oral) Med Classific ation: Central Nervous System Agents bisacodyl 5 mg tablet,traci yed release 2023-05 00:00: 00 Yes [id number] 2 tablet BEDTIME 2 tablet BEDTIME (route: oral) Med Classific ation: Gastroint estinal Therapy Agents memantine 5 mg tablet 2023-05- 00:00: 00 Yes [id number] 1 tablet 2 TIMES DAILY 1 tablet 2 TIMES DAILY (route: oral) Med Classific ation: Cognitive Disorder Therapy pantoprazol e 40 mg tablet,traci yed release 2023-05- 00:00: 00 Yes [id number] 1 tablet BEDTIME 1 tablet BEDTIME (route: oral) Med Classific ation: Gastroint estinal Therapy Agents trazodone 100 mg tablet 2023-05 2- 00:00: 00 Yes [id number] 2.5 tablet BEDTIME 2.5 tablet BEDTIME (route: [...] AWARENESS FOR SAFETY AND WILL NOTIFY CLINICAL OFFICE MACHINE SERVICER APPRENTICE AND PHYSICIAN/PROVIDER WITH ANY CHANGE IN CONDITION. [code = SKILLED NURSE WILL MAINTAIN SITUATIONAL AWARENESS FOR SAFETY AND WILL NOTIFY CLINICAL OFFICE MACHINE SERVICER APPRENTICE AND PHYSICIAN/PROVIDER WITH ANY CHANGE IN CONDITION.] [...] CARE WILL BE ESTABLISHED THAT MEETS PATIENT'S CORRECTION NEEDS AND INCLUDES PATIENT GOAL FOR HOME [...] 00:00:00 2024-06-25 00:00:00 Outpatient RECERTIFIC ROLDAN BRICEÑO [facility] [id number] 9.38
--- OUTSIDE RECORDS SUMMARY | 2024-05-03 14:22 | XMS_ITS | Clinical Summary ---
Author Organization Unknown Care Team Providers Care Merchandise Examiner Name Role Phone NAME TYREL LIANG Unavailable Unavailable VERONICA RN, ROLDAN Unavailable Unavailable JACKSON NIX, CORNELL Unavailable Unavailable Payers Payer Name Policy Type Policy Number Effective Date Expira tion Date [facility] [id number] MEDICAID [facility] [id number] MEDICARE - [facility] - [facility] [id number] Problems Condition Name Condition Details Condition Category [...] capsule,del ayed release 2022-05 00:00: 00 Yes [id number] 1 capsule 4 TIMES DAILY 1 capsule 4 TIMES DAILY (route: oral) Med Classific ation: Gastroint estinal Therapy Agents gabapentin 300 mg capsule 2022-05 00:00: 00 06-27 23:59 :00 No [id number] 1 capsule 3 TIMES DAILY 1 capsule 3 TIMES DAILY (route: oral) Med Classific ation: Central Nervous System Agents hydrochloro thiazide 12.5 mg tablet 2022-05 00:00: 00 03-14 23:59 :00 No [id number] 1 tablet 2 TIMES DAILY 1 tablet 2 TIMES DAILY (route: oral) Med Classific ation: Cardiovas cular Therapy Agents Protonix 40 mg tablet,traci yed release 2022-05 00:00: 00 03-12 23:59 :00 No [id number] 1 tablet DAILY 1 tablet DAILY (route: oral) Med Classific ation: Gastroint estinal Therapy Agents albuterol sulfate concentrate 2.5 mg/0.5 mL solution for nebulizatio n 2022-05 00:00: 00 Yes [id number] 1 mL 4 TIMES DAILY 1 mL 4 TIMES DAILY (route: inhalation ) Med Classific ation: Respirato ry Therapy Agents albuterol sulfate HFA 90 mcg/actuati on aerosol inhaler 2022-05 00:00: 00 Yes [id number] 2 puff 4 TIMES DAILY 2 puff 4 TIMES DAILY (route: inhalation ) Med Classific ation: Respirato ry Therapy Agents bisacodyl 5 mg tablet,traci yed release 2022-05 00:00: 00 08-03 23:59 :00 No [id number] 1 tablet DAILY 1 tablet DAILY (route: oral) Med Classific ation: Gastroint estinal Therapy Agents bupropion HCl XL 300 mg 24 hr tablet, extended release 2022-05 00:00: 00 08-29 23:59 :00 No [id number] 1 tablet DAILY 1 tablet DAILY (route: oral) Med Classific ation: Central Nervous System Agents Colace 100 mg capsule 2022-05 00:00: 00 Yes [id number] 1 capsule 2 TIMES DAILY 1 capsule 2 TIMES DAILY (route: oral) Med Classific ation: Gastroint estinal Therapy Agents metformin 500 mg tablet 2022-05 00:00: 00 Yes [id number] 1 tablet 2 TIMES DAILY 1 tablet 2 TIMES DAILY (route: oral) Med Classific ation: Endocrine Topamax 100 mg tablet 2022-05 00:00: 00 Yes [id number] 1 tablet 2 TIMES DAILY 1 tablet 2 TIMES DAILY (route: oral) Med Classific ation: Central Nervous System Agents trazodone 100 mg tablet 2022-05 00:00: 00 04-04 23:59 :00 No [id number] 1 tablet BEDTIME 1 tablet BEDTIME (route: oral) Med Classific ation: Central Nervous System Agents hydroxyzine pamoate 25 mg capsule 2022-05 0-25 00:00: 00 05-27 23:59 :00 No [id number] 1 capsule DAILY 1 capsule DAILY (route: oral) Med Classific ation: Central Nervous System Agents hydrochloro thiazide 12.5 mg tablet 2022-05 0-23 00:00: 00 Yes [id number] 1 tablet DAILY 1 tablet DAILY (route: oral) Med Classific ation: Cardiovas cular Therapy Agents Aricept 5 mg tablet 2022-05 1-03 00:00: 00 07-06 23:59 :00 No [id number] 1 tablet BEDTIME 1 tablet BEDTIME (route: oral) Med Classific ation: Cognitive Disorder Therapy hydroxyzine pamoate 25 mg capsule 1-05 00:00: 00 08-29 23:59 :00 No [id number] 1 capsule 2 TIMES DAILY 1 capsule 2 TIMES DAILY (route: oral) Med Classific ation: Central Nervous System Agents gabapentin 300 mg capsule 2-10 00:00: 00 Yes [id number] 1 capsule DAILY 1 capsule DAILY (route: oral) Med Classific ation: Central Nervous System Agents Aricept 10 mg tablet 2-14 00:00: 00 04-04 23:59 :00 No [id number] 1 tablet BEDTIME 1 tablet BEDTIME (route: oral) Med Classific ation: Cognitive Disorder Therapy bisacodyl 5 mg tablet,traci yed release 3-14 00:00: 00 04-26 23:59 :00 No [id number] 1 tablet BEDTIME 1 tablet BEDTIME (route: oral) Med Classific ation: Gastroint estinal Therapy Agents ondansetron 4 mg disintegrat ing tablet 3-14 00:00: 00 Yes [id number] 1 tablet 3 TIMES DAILY 1 tablet 3 TIMES DAILY (route: oral) Med Classific ation: Gastroint estinal Therapy Agents solifenacin 10 mg tablet 3-14 00:00: 00 Yes [id number] 1 tablet DAILY 1 tablet DAILY (route: oral) Med Classific ation: Genitouri nary Therapy Cymbalta 30 mg capsule,del ayed release 08-30 00:00: 00 Yes [id number] 1 capsule DAILY 1 capsule DAILY (route: oral) Med Classific ation: Central Nervous System Agents Linzess 145 mcg capsule 08-30 00:00: 00 03-12 23:59 :00 No [id number] 1 capsule DAILY 1 capsule DAILY (route: oral) Med Classific ation: Gastroint estinal Therapy Agents cyclosporin e 0.05 % eye drops in a dropperette 2023-05 00:00: 00 Yes [id number] 1 dropper ette 2 TIMES DAILY 1 dropperett e 2 TIMES DAILY (route: ophthalmic (eye)) Med Classific ation: Ophthalmi c Agents Pepcid 40 mg tablet 2023-05 00:00: 00 04-26 23:59 :00 No [id number] 1 tablet 2 TIMES DAILY 1 tablet 2 TIMES DAILY (route: oral) Med Classific ation: Gastroint estinal Therapy Agents trazodone 50 mg tablet 2023-05 00:00: 00 04-26 23:59 :00 No [id number] 2 tablet BEDTIME 2 tablet BEDTIME (route: oral) Med Classific ation: Central Nervous System Agents bisacodyl 5 mg tablet,traci yed release 2023-05 00:00: 00 Yes [id number] 2 tablet BEDTIME 2 tablet BEDTIME (route: oral) Med Classific ation: Gastroint estinal Therapy Agents memantine 5 mg tablet 2023-05- 00:00: 00 Yes [id number] 1 tablet 2 TIMES DAILY 1 tablet 2 TIMES DAILY (route: oral) Med Classific ation: Cognitive Disorder Therapy pantoprazol e 40 mg tablet,traci yed release 2023-05- 00:00: 00 Yes [id number] 1 tablet BEDTIME 1 tablet BEDTIME (route: oral) Med Classific ation: Gastroint estinal Therapy Agents trazodone 100 mg tablet 2023-05 2- 00:00: 00 Yes [id number] 2.5 tablet BEDTIME 2.5 tablet BEDTIME (route: [...] AWARENESS FOR SAFETY AND WILL NOTIFY CLINICAL ANESTHESIOLOGY TECHNOLOGIST AND PHYSICIAN/PROVIDER WITH ANY CHANGE IN CONDITION. [code = SKILLED NURSE WILL MAINTAIN SITUATIONAL AWARENESS FOR SAFETY AND WILL NOTIFY CLINICAL ANESTHESIOLOGY TECHNOLOGIST AND PHYSICIAN/PROVIDER WITH ANY CHANGE IN CONDITION.] [...] CARE WILL BE ESTABLISHED THAT MEETS PATIENT'S JAIL NEEDS AND INCLUDES PATIENT GOAL FOR HOME [...] 00:00:00 2024-06-25 00:00:00 Outpatient RECERTIFIC ROLDAN BRICEÑO [facility] [id number]
[2024-05-03 14:26] VITALS: BP 115/62; PULSE 66; O2SAT 97; BMI 21.4
== END 2024-05-03 15:21 | disposition home or self-care (01) ==
PROVIDERS: PCP Internal Medicine Geriatric Medicine; Visit Provider Student in an Organized Health Care Education/Training Program
DX: I77.82 Antineutrophilic cytoplasmic antibody [ANCA] vasculitis (principal); R76.0 Raised antibody titer; M79.7 Fibromyalgia
CPT/HCPCS: 99214

== ENCOUNTER → 2024-05-03 14:19 | Outpatient (BNVA) | payer OTHER, SELFPAY | PROVIDERS: PCP Internal Medicine Geriatric Medicine; Visit Provider Student in an Organized Health Care Education/Training Program | DX: I77.82 Antineutrophilic cytoplasmic antibody [ANCA] vasculitis (principal); R76.0 Raised antibody titer; M79.7 Fibromyalgia | CPT/HCPCS: 99212 ==

== ENCOUNTER 2024-07-03 14:07 | Outpatient (REF) | payer OTHER, SELFPAY | END 2024-07-03 14:08 | disposition home or self-care (01) | LOC: HO.HHCX 14:07 | PROVIDERS: Visit Provider Internal Medicine Geriatric Medicine | DX: M25.562 Pain in left knee (principal); M25.462 Effusion, left knee | CPT/HCPCS: 73564 ==

== ENCOUNTER → 2024-07-03 14:08 | Outpatient (BNV) | payer OTHER, SELFPAY | PROVIDERS: Visit Provider Radiology Diagnostic Radiology | DX: M17.12 Unilateral primary osteoarthritis, left knee (principal); M25.562 Pain in left knee | CPT/HCPCS: 73564 ==

== ENCOUNTER 2024-09-04 06:57 | Outpatient (REF) | payer OTHER, SELFPAY ==
[2024-09-04 07:11] LABS: MANUAL DIFF FLAG NO
[2024-09-04 07:55] LABS: Basophils Percent Auto 0.5 % (0-2); Eosinophils Absolute Auto 0.1 X10*3/uL (0.0-0.4); Eosinophils Percent Auto 2.3 % (0-4); Hematocrit 33.9 % (37.0-47.0); Hemoglobin 10.8 g/dl (12.0-16.0); Imm Gran Abs Auto 0.01 X10*3/uL (0.00-0.03); Imm Gran Pct Auto 0.2 % (0.0-0.4); Lymphocytes Absolute Auto 1.8 X10*3/uL (1.2-4.9); Lymphocytes Percent Auto 32.4 % (20-40); Mean Corpuscular HGB Conc 31.9 g/dl (31.0-35.0); Mean Corpuscular Hemoglobin 30.9 pg (27.0-33.0); Mean Corpuscular Volume 96.9 fL (80.0-98.0); Mean Platelet Volume 8.6 fL (9.4-12.3); Monocytes Absolute Auto 0.7 X10*3/uL (0.1-1.2); Monocytes Percent Auto 11.6 % (2-11); Platelet Count 207 X10*3/uL (160-400); Red Cell Distribution Width 13.5 % (11.0-16.0); White Blood Count 5.6 X10*3/uL (4.8-10.8)
[2024-09-04 08:13] LABS: Alanine Aminotransferase 8 U/L (0-31); Albumin Level 3.4 g/dL (3.5-5.0); Alkaline Phosphatase 101 U/L (39-117); Anion Gap 7 (12-20); Aspartate Amino Transferase 20 U/L (5-31); Bilirubin Total 0.2 mg/dL (0.0-1.0); Blood Urea Nitrogen 28 mg/dL (9-16); C Reactive Protein 0.15 mg/dL (< or = 0.50); Calcium 9.3 mg/dL (8.4-10.2); Carbon Dioxide 25 mmol/L (22-29); Chloride 112 mmol/L (96-108); Estimated Glomerular Filt Rate > 60; Glucose Random 88 mg/dL (60-115); Potassium 3.8 mmol/L (3.3-5.1); Sodium 140 mmol/L (135-145); Total Protein 7.1 g/dL (6.5-8.0)
[2024-09-04 08:54] LABS: Erythrocyte Sedimentation Rate 28 MM/HR (0-20)
== END 2024-09-04 06:58 | disposition home or self-care (01) ==
LOC: HO.LAB 06:57
PROVIDERS: Hospitalist; PCP Internal Medicine Geriatric Medicine; Referring Provider Student in an Organized Health Care Education/Training Program; Visit Provider Student in an Organized Health Care Education/Training Program
DX: I77.82 Antineutrophilic cytoplasmic antibody [ANCA] vasculitis (principal)
CPT/HCPCS: 36415; 80053; 85025; 85652; 86140